=== PATIENT | male | born 1930 | race Caucasian/White ===

== ENCOUNTER → 2016-06-30 | Outpatient (CLI) | payer OTHER ==
--- NOTE | 2016-06-30 15:00 | US ---
Bilateral Duplex/Doppler Carotid Sonography Clinical Indications: Coronary artery disease. Hyperlipidemia. R09.89 COMPARISON: CT angiogram September 2015 Technique: The cervical portions of the carotid and vertebral arteries were imaged and interrogated by color and pulsed Duplex/Doppler. Spectral analysis was performed. Findings: Right Carotid: Right CCA peak systolic velocity = 72 cm/sec Right ICA peak systolic velocity = 222 cm/sec Right ECA peak systolic velocity = 110 cm/sec Right ICA/CCA systolic velocity ratio = 3.1 Velocities correlate to 70-89% diameter stenosis of the origin of the right internal carotid artery w ith respect to the normal distal internal carotid artery. Moderate calcified plaque involving the rig ht carotid bulb and proximal right internal carotid artery. Left Carotid: Left CCA peak systolic velocity = 80 cm/sec Left ICA peak systolic velocity = 89 cm/sec Left ECA peak systolic velocity = 109 cm/sec Left ICA/CCA systolic velocity ratio = 1.1 Velocities correlate to less than 50% diameter stenosis of the origin of the left internal carotid ar hermelinda with respect to the normal distal internal carotid artery. Mild calcified plaque involving the l eft carotid bulb and proximal left internal carotid artery. Vertebral Arteries: Antegrade flow is shown by pulsed Doppler of each vertebral artery. Impression: 1. Severe atherosclerotic stenosis right carotid bulb 2. Velocities correlate to 70-89% diameter stenosis of the origin of the right internal carotid arter y. 3. Velocities correlate to less than 50% diameter stenosis of the origin of the left internal carotid artery. 4. Bilateral vertebral arteries are patent with antegrade flow. Measurement of carotid stenosis is based on velocity parameters that correlate the residual internal carotid diameter with [place] Symptomatic Carotid Endarterectomy Trial (NASCET) based stenosis levels.
== END ==
LOC: FIMAGING 12:38
PROVIDERS: ATTEND Internal Medicine Cardiovascular Disease
DX: I65.23 Occlusion and stenosis of bilateral carotid arteries (principal); I25.10 Atherosclerotic heart disease of native coronary artery without angina pectoris; E78.5 Hyperlipidemia, unspecified

== ENCOUNTER 2016-07-08 21:39 | Emergency (ER) | payer OTHER ==
--- NOTE | 2016-07-08 22:14 | EDPHY ---
H & P Stated Complaint: Mechanical Fall Time Seen by Provider: 07/08/16 21:43 HPI/ROS: CHIEF COMPLAINT: Mechanical fall, head injury HISTORY OF PRESENT ILLNESS: The patient presents to the ED after an unwitnessed mechanical fall at home and a mild head injury. The patient is not anticoagulated. He does take Plavix. The patient reports he struck his head fairly hard. He is uncertain whether he lost consciousness. He denies specific complaints of neck pain. He has no complaints of focal numbness or weakness. The patient has not had any recent illness. The patient denies back , chest, abdominal or extremity pain. The patient does complain of a mild headache. REVIEW OF SYSTEMS: A comprehensive 10 point review of systems is otherwise negative aside from elements mentioned in the history of present illness. Source: Patient Exam Limitations: No limitations - Personal History Current Tetanus/Diphtheria Vaccine: Unsure - Medical/Surgical History Hx Asthma: No Hx Chronic Respiratory Disease: No Hx Diabetes: Yes Hx Cardiac Disease: Yes Hx Renal Disease: No Hx Cirrhosis: No Hx Alcoholism: No Hx HIV/AIDS: No Hx Splenectomy or Spleen Trauma: No Other PMH: ESPOPHAGEAL STRITURE, CARTOID STENOSIS - Social History Smoking Status: Never smoked - Physical Exam Exam: General Appearance: Alert, no distress Head: Superficial abrasion noted to forehead Eyes: Pupils equal, round, reactive ENT, Mouth: No hemotympanum, no oral trauma Neck: Minimal tenderness to palpation in the left paraspinal muscles Respiratory: No chest wall tender, subcutaneous air, lungs clear bilaterally Cardiovascular: Regular rate and rhythm Abdomen: Abdomen is soft and nontender, pelvis stable Skin: No lacerations, No abrasion Back: No midline T/L/S pain Extremities: Nontender, full range of motion Neurological: A&Ox3, normal motor function, normal sensory exam Constitutional: Initial Vital Signs Temperature (C) 36.5 C 07/08/16 21:53 Heart Rate 65 07/08/16 21:53 Respiratory Rate 20 07/08/16 21:53 Blood Pressure 181/121 H 07/08/16 21:53 O2 Sat (%) 95 07/08/16 21:53 O2 Delivery Mode Room Air Allergies/Adverse Reactions: Penicillins Allergy (Unknown, Verified 02/26/13 18:54) Home Medications: Medication Instructions Recorded Aspirin 10/26/15 Lisinopril 10/26/15 Metformin HCl 10/26/15 Metoprolol Succinate 10/26/15 Medical Decision Making - Diagnostics EKG Interpretation: EKG: Complete interpretation has been separately recorded in the [facility] archive. Summary impression: Sinus rhythm, first-degree AV block Imagin. CT head without contrast: Negative for intracranial hemorrhage or skull fracture. Images reviewed by myself and discussed with radiologist Dr. Prosper Hylton. 2. CT cervical spine without contrast: Negative for fracture, DJD is noted. Images reviewed by myself and discussed with radiologist Dr. Prosper Hylton ED Course/Re-evaluation: The patient presents to the ED after mechanical fall. The patient did have some mild neck tenderness and a contusion to his head. Given his complaints of headache in age, a noncontrast head CT scan was ordered which demonstrates no evidence of intracranial hemorrhage or skull fracture. Additionally, the patient's cervical spine x-ray demonstrates no evidence of an acute fracture. The remainder of his clinical examination demonstrates no evidence of an obvious bony fracture or significant intra-abdominal, spinal or thoracic trauma. The patient did have an EKG obtained in the emergency department which demonstrates a sinus rhythm. The patient was noted to be hemodynamically stable. The patient's laboratory studies are unremarkable. The patient was reexamined at 11:00 p.m.. He is now ambulatory without assistance. He has no complaints of acute pain. The patient can be discharged home with his neighbor. The patient has been given customary aftercare instructions and return precautions. Patient presents to the ED after a likely vasovagal episode complicated by a mild soft tissue injury. Differential Diagnosis: Differential diagnosis considered includes intracranial hemorrhage, cervical spine fracture, arrhythmia, metabolic abnormality, dehydration, vasovagal episode - Data Points Laboratory Results: Laboratory Results 07/08/16 22:30 07/08/16 21:45 07/08/16 07/08/16 22:30 21:45 WBC 8.51 10^3/uL REJ (3.80-9.50) RBC 3.75 L 10^6/uL Not Reported (4.40-6.38) Hgb 11.4 L g/dL Not Reported (13.7-17.5) Hct 34.3 L % Not Reported (40.0-51.0) MCV 91.5 fL Not Reported (81.5-99.8) MCH 30.4 pg Not Reported (27.9-34.1) MCHC 33.2 g/dL Not Reported (32.4-36.7) RDW 13.0 % Not Reported (11.5-15.2) Plt Count 198 10^3/uL Not Reported (150-400) MPV 10.3 fL Not Reported (8.7-11.7) Neut % (Auto) 77.6 H % Not Reported (39.3-74.2) Lymph % (Auto) 11.9 L % Not Reported (15.0-45.0) Dare % (Auto) 9.0 % Not Reported (4.5-13.0) Eos % (Auto) 0.9 % Not Reported (0.6-7.6) Baso % (Auto) 0.2 L % Not Reported (0.3-1.7) Nucleat RBC Rel Count 0.0 % Not Reported (0.0-0.2) Absolute Neuts (auto) 6.60 H 10^3/uL Not Reported (1.70-6.50) Absolute Lymphs (auto) 1.01 10^3/uL Not Reported (1.00-3.00) Absolute Monos (auto) 0.77 10^3/uL Not Reported (0.30-0.80) Absolute Eos (auto) 0.08 10^3/uL Not Reported (0.03-0.40) Absolute Basos (auto) 0.02 10^3/uL Not Reported (0.02-0.10) Absolute Nucleated RBC 0.00 10^3/uL Not Reported (0-0.01) Immature Gran % 0.4 % Not Reported (0.0-1.1) Immature Gran # 0.03 10^3/uL Not Reported (0.00-0.10) Sodium 138 mEq/L (134-144) Potassium 5.2 mEq/L (3.5-5.2) Chloride 101 mEq/L (97-110) Carbon Dioxide 25 mEq/l (22-31) Anion Gap 12 mEq/L (8-16) BUN 21 mg/dL (7-23) Creatinine 0.9 mg/dL (0.7-1.3) Estimated GFR > 60 Glucose 206 H mg/dL (70-100) Calcium 8.8 mg/dL (8.5-10.4) Specimen Hemolysis 197 Departure - Departure Disposition: Home, Routine, Self-Care Clinical Impression: Scalp contusion, Accident due to mechanical fall without injury Condition: Good Instructions: Contusion in Adults (ED) Additional Instructions: 1. Return to the ED for severe headache, vomiting or other concerns. 2. Please follow up with your primary care provider as scheduled. Referrals: Pepper Thibodeaux MD [Primary Care Provider] - As per Instructions
--- NOTE | 2016-07-08 22:14 | CPEKG ---
Heart Rate: 68 RR Interval: 882 P-R Interval: 220 QRSD Interval: 106 QT Interval: 420 QTC Interval: 447 P [place]: 29 QRS [place]: 51 T Wave [place]: 22 EKG Severity - ABNORMAL ECG - EKG Impression: SINUS RHYTHM EKG Impression: FIRST DEGREE AV BLOCK Electronically Signed By: Bj Siegel 08-Jul-2016 23:04:47
[2016-07-08 22:28] LABS: ANION GAP 12 mEq/L (8-16); CALCIUM 8.8 mg/dL (8.5-10.4); CARBON DIOXIDE 25 mEq/l (22-31); CHLORIDE 101 mEq/L (97-110); CREATININE 0.9 mg/dL (0.7-1.3); GLOMERULAR FILTRATION RATE > 60; GLUCOSE 206 mg/dL (70-100); POTASSIUM 5.2 mEq/L (3.5-5.2); SODIUM 138 mEq/L (134-144); SPECIMEN HEMOLYSIS 197
--- NOTE | 2016-07-08 22:35 | CT ---
CT Brain (Without Contrast) History: Closed head injury in an 86-year-old male on blood thinners; evaluate for intracranial hemo rrhage.. Technique: Axial computed tomographic images of the brain are obtained from the base to the vertex w ithout contrast. Images are obtained at 5 mm thickness and reformatted at 1.5 mm. Sagittal and price l reformations are performed and the study is reviewed at multiple window/level settings. Dose reduct ion techniques were utilized. Findings: Ventricles, cisterns, and sulci are widened consistent with atrophy. There is no hydroceph alus, midline shift/herniation, or epidural/subdural hematoma. No intraparenchymal hemorrhage or mass effect is identified. Hypodensities are noted in the periventricular and subcortical white matter bi laterally. No acute cortical ischemia is identified. Cerebrovascular atherosclerosis is identified. B one windows demonstrate no displaced fractures. Paranasal sinuses and mastoid air cells are free of f luid. Mucous membrane thickening is seen involving the left maxillary and nasal ethmoid sinuses. 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 Nothing acute is identified. CT Cervical Spine Without Contrast History: Trauma. Technique: Multislice helical CT through the cervical spine without contrast from the skull base to T 1. Soft tissue and bone evaluation is performed. Sagittal and coronal reconstructions are obtained an d reviewed. Dose reduction techniques were utilized. Findings: Cervical alignment is anatomic. No fracture or dislocation is identified. The relationship between skull base and C1 is normal. Degenerative changes are seen involving the C1-C2 articulation.. The odontoid process is normal. The cervical thoracic junction is normal. Soft tissue window evaluat ion does not show evidence of epidural or prevertebral hematoma. Multilevel degenerative changes are seen with disk space loss and bony hypertrophic changes extending from C3-C4 to the C6-C7 level. Bilateral neural foraminal impingement is most pronounced at the C3-C 4 level. Carotid arterial calcifications are noted. Impression: 1. Negative for fracture. 2. Multilevel degenerative changes are noted. 3. See above report for additional findings. A preliminary report was called to Dr. Bj Gottlieb at 2230 hours in the Emergency Department.
[2016-07-08 22:40] LABS: % IMMATURE GRANULYOCYTES 0.4 % (0.0-1.1); ABSOLUTE IMMATURE GRANULOCYTES 0.03 10^3/uL (0.00-0.10); ADD DIFF? NO; ADD MORPH? NO; ADD SCAN? NO; ATYPICAL LYMPHOCYTE FLAG 0 (0-99); FRAGMENT RBC FLAG 0 (0-99); HEMATOCRIT 34.3 % (40.0-51.0); HEMOGLOBIN 11.4 g/dL (13.7-17.5); LEFT SHIFT FLG 10 (0-99); LIPEMIA HEMOLYSIS FLAG 80 (0-99); MEAN CELL HEMOGLOBIN 30.4 pg (27.9-34.1); MEAN CELL HEMOGLOBIN CONCENTR. 33.2 g/dL (32.4-36.7); MEAN CELL VOLUME 91.5 fL (81.5-99.8); MEAN PLATELET VOLUME 10.3 fL (8.7-11.7); PLATELET CLUMPS FLAG 10 (0-99); PLATELET COUNT 198 10^3/uL (150-400); RED BLOOD CELL COUNT 3.75 10^6/uL (4.40-6.38)
[2016-07-08 23:16] VITALS: BP 181/82; PULSE 89; RESP 20; TEMP 98.1; O2SAT 97
== END 2016-07-08 23:25 | disposition home or self-care (01) ==
LOC: EDUNIT#
DX: S00.03XA Contusion of scalp, initial encounter (principal); E11.9 Type 2 diabetes mellitus without complications; Z79.82 Long term (current) use of aspirin; W18.39XA Other fall on same level, initial encounter; Y92.009 Unspecified place in unspecified non-institutional (private) residence as the place of occurrence of the external cause; Y93.89 Activity, other specified

== ENCOUNTER 2017-03-01 11:25 | Observation (INO) | payer OTHER ==
[2017-03-01] MEDS ORDERED: NS 1,000 ML IV ONE (11:52)
--- NOTE | 2017-03-01 11:58 | EDPHY ---
H & P Stated Complaint: generalized weakness past few days, fall this a.m. Time Seen by Provider: 03/01/17 11:44 HPI/ROS: CHIEF COMPLAINT: Frequent falls HISTORY OF PRESENT ILLNESS: Patient is an 86-year-old man who comes to the emergency department this family complaining of frequent falls and states that his legs are not functioning. He is family states that over the last several weeks to months he has had weakness and some "trouble" with his right arm and leg. He denies having any injuries. He denies headache. He denies chest pain or palpitations or shortness of breath. He has a history of carotid artery stenosis that is been observed only. He states that he has a stent in his heart was placed [address] Ramí[address]. REVIEW OF SYSTEMS: Constitutional: denies: chills, fever, recent illness, recent injury EENTM: denies: blurred vision, double vision, nose congestion Respiratory: denies: cough, shortness of breath Cardiac: denies: chest pain, irregular heart rate, lightheadedness, palpitations Gastrointestinal/Abdominal: denies: abdominal pain, diarrhea, nausea, vomiting, blood streaked stools Genitourinary: denies: dysuria, frequency, hematuria, pain Musculoskeletal: See HPI Skin: denies: lesions, rash, jaundice, bruising Neurological: denies: headache, numbness, paresthesia, tingling, dizziness, weakness Hematologic/Lymphatic: denies: blood clots, easy bleeding, easy bruising Immunologic/allergic: denies: HIV/AIDS, transplant EXAM: GENERAL: Well-appearing, well-nourished and in no acute distress. HEAD: Atraumatic, normocephalic. EYES: Pupils equal round and reactive to light, extraocular movements intact, sclera anicteric, conjunctiva are normal. ENT: TMs normal, nares patent, oropharynx clear without exudates. Moist mucous membranes. NECK: Normal range of motion, supple without lymphadenopathy or JVD. LUNGS: Breath sounds clear to auscultation bilaterally and equal. No wheezes rales or rhonchi. HEART: Regular rate and rhythm without murmurs, rubs or gallops. ABDOMEN: Soft, nontender, normoactive bowel sounds. No guarding, no rebound. No masses appreciated. BACK: No CVA tenderness, no spinal tenderness, step-offs or deformities EXTREMITIES: Normal range of motion, no pitting or edema. No clubbing or cyanosis. NEUROLOGICAL: Slight right-sided facial droop, pronator drift on the right, slight weakness in right leg with elevation. Normal speech, normal sensation NIH stroke score of 3 for pronator drift, slight right facial weakness and slight hemianopsia of the right side PSYCH: Normal mood, normal affect. SKIN: Warm, dry, normal turgor, no visible rashes or lesions. Source: Patient, Family Exam Limitations: No limitations - Personal History Current Tetanus/Diphtheria Vaccine: Yes Current Tetanus Diphtheria and Acellular Pertussis (TDAP): Yes - Medical/Surgical History Hx Asthma: No Hx Chronic Respiratory Disease: No Hx Diabetes: Yes Hx Cardiac Disease: Yes Hx Renal Disease: No Hx Cirrhosis: No Hx Alcoholism: No Hx HIV/AIDS: No Hx Splenectomy or Spleen Trauma: No Other PMH: ESPOPHAGEAL STRITURE, CARTOID STENOSIS, DM - Family History Significant Family History: No pertinent family hx - Social History Smoking Status: Never smoked Alcohol Use: Sober Drug Use: None Constitutional: Initial Vital Signs Temperature (C) 36.8 C 03/01/17 11:48 Heart Rate 90 03/01/17 11:48 Respiratory Rate 16 03/01/17 11:48 Blood Pressure 155/74 H 03/01/17 11:48 O2 Sat (%) 91 L 03/01/17 11:48 O2 Delivery Mode Room Air Allergies/Adverse Reactions: Penicillins Allergy (Unknown, Verified 02/26/13 18:54) Home Medications: Medication Instructions Recorded Aspirin EC [Aspirin EC 81 mg (*)] 81 mg PO DAILY 10/26/15 Metoprolol Succinate Xr [Toprol Xl 25 mg PO DAILY 10/26/15 25 mg (*)] metFORMIN HCL [Metformin HCl ER] 500 mg PO DAILY 10/26/15 Atorvastatin Calcium [Lipitor 40 40 mg PO DAILY 03/01/17 mg (*)] metFORMIN HCL [Metformin HCl ER] 1,000 mg PO HS 03/01/17 Acetaminophen [Tylenol 325mg (*)] 650 mg PO Q4HRS PRN tab 03/02/17 Medical Decision Making - Diagnostics EKG Interpretation: An EKG obtained and was read and documented in trace view. Please see trace view for full reading and report. Sinus rhythm with PVCs, no acute ischemic changes ED Course/Re-evaluation: 1:45 p.m. I discussed the case with Dr. Ulysses Coyne who will admit to the medical service. Her CT and lab findings thus far unremarkable. Patient has carotid artery stenosis. This may be the primary problem Differential Diagnosis: Partial list of the Differential diagnosis considered include but were not limited to; CVA, are stenosis and although unlikely based on the history and physical exam, I also considered infection, seizure, concussion. - Data Points Medications Given: Discontinued Medications Aspirin (Aspirin) 325 mg PO DAILY [place] Stop: 08/28/17 15:14 Last Admin: 03/02/17 08:27 Dose: 325 mg Atorvastatin Calcium (Lipitor) 40 mg PO DAILY [place] Stop: 08/29/17 08:59 Last Admin: 03/02/17 08:27 Dose: 40 mg Sodium Chloride (Ns) 1,000 mls @ 0 mls/hr IV ONCE ONE; Wide Open PRN Reason: Protocol Stop: 03/01/17 11:53 Last Admin: 03/01/17 11:55 Dose: 1,000 mls Metformin HCl (Glucophage Xr) 1,000 mg PO HS [place]AV[place] Stop: 08/28/17 20:59 Last Admin: 03/01/17 20:18 Dose: 1,000 mg Metformin HCl (Glucophage Xr) 500 mg PO DAILY OCTAV[place] Stop: 08/29/17 08:59 Last Admin: 03/02/17 08:26 Dose: 500 mg Metoprolol Succinate (Toprol Xl) 25 mg PO DAILY OCTAV[place] Stop: 08/29/17 08:59 Last Admin: 03/02/17 08:27 Dose: 25 mg Pantoprazole Sodium (Protonix) 40 mg PO DAILY [place]AV[place] Stop: 08/28/17 19:29 Last Admin: 03/02/17 08:27 Dose: 40 mg Departure - Departure Disposition: [facility] Inpatient Acute Clinical Impression: CVA, old, facial weakness Condition: Good
[2017-03-01 12:11] LABS: % IMMATURE GRANULYOCYTES 0.2 % (0.0-1.1); ABSOLUTE IMMATURE GRANULOCYTES 0.02 10^3/uL (0.00-0.10); ADD DIFF? NO; ADD MORPH? NO; ADD SCAN? NO; ATYPICAL LYMPHOCYTE FLAG 0 (0-99); FRAGMENT RBC FLAG 0 (0-99); HEMATOCRIT 33.2 % (40.0-51.0); LEFT SHIFT FLG 0 (0-99); LIPEMIA HEMOLYSIS FLAG 80 (0-99); MEAN CELL HEMOGLOBIN 30.9 pg (27.9-34.1); MEAN CELL HEMOGLOBIN CONCENTR. 33.1 g/dL (32.4-36.7); MEAN CELL VOLUME 93.3 fL (81.5-99.8); MEAN PLATELET VOLUME 11.1 fL (8.7-11.7); PLATELET CLUMPS FLAG 0 (0-99); PLATELET COUNT 182 10^3/uL (150-400); RED BLOOD CELL COUNT 3.56 10^6/uL (4.40-6.38); RED CELL DISTRIBUTION WIDTH 13.1 % (11.5-15.2)
[2017-03-01 12:26] LABS: ANION GAP 11 mEq/L (8-16); CALCIUM 9.4 mg/dL (8.5-10.4); CARBON DIOXIDE 24 mEq/l (22-31); CHLORIDE 99 mEq/L (97-110); CREATININE 0.9 mg/dL (0.7-1.3); GLOMERULAR FILTRATION RATE > 60; GLUCOSE 220 mg/dL (70-100); POTASSIUM 3.9 mEq/L (3.5-5.2); SODIUM 134 mEq/L (134-144)
[2017-03-01 12:37] LABS: TROPONIN I < 0.012 ng/mL (0.000-0.034)
--- NOTE | 2017-03-01 12:52 | CPEKG ---
Heart Rate: 67 RR Interval: 896 P-R Interval: 240 QRSD Interval: 98 QT Interval: 432 QTC Interval: 456 P [place]: 54 QRS [place]: 64 T Wave [place]: 44 EKG Severity - ABNORMAL ECG - EKG Impression: SINUS RHYTHM EKG Impression: FIRST DEGREE AV BLOCK EKG Impression: PVCs Electronically Signed By: Nick Armenta 01-Mar-2017 12:53:00
[2017-03-01] MEDS ORDERED: ONDANSETRON DISINTEGRATING 4 MG TAB PO PRN (15:04)
[2017-03-01] MEDS ORDERED: ACETAMINOPHEN 325 MG TAB PO PRN (15:04)
[2017-03-01] MEDS ORDERED: ONDANSETRON 4 MG/2 ML VIAL IVP PRN (15:04)
--- NOTE | 2017-03-01 15:42 | ASMTCMCOM ---
CM Note CM Note Notes: Patient admitted for possible CVA, carotid stenosis, weakness. Patient was noted to have slight right sided facial droop and right leg weakness. Patient had a fall earlier today and states he has been having increased falls over the past several weeks to months. Patient lives at home with his and states they have both skilled and non-skilled home help but didn't seem to want to elaborate. Patient states he doesn't use a walker or cane. Anticipate PT/OT and possibly [facility] evaluations. DC needs unknown. CM to follow. Date Signed: 03/01/2017 03:41 PM Electronically Signed By:Omaira Johnson RN
[2017-03-01] MEDS: ASPIRIN 325 MG TAB PO SCH (18:05)
[2017-03-01] MEDS ORDERED: IOPAMIDOL (ISOVUE 370) 100 ML BTL IV ONE (18:52)
--- NOTE | 2017-03-01 19:16 | PDGENHP ---
History and Physical - Chief Complaint acute weakness - History of Present Illness Primary manager solar: Dr. Carlos Batres Primary general surgeon: Dr. Jace Hayden Primary supervisor sewer maintenance: Dr. Dhaval Wright HPI: 86-year-old male presenting with acute weakness characterized as a diffuse heaviness located in his bilateral lower extremities with associated falls of increasing frequency, with onset of symptoms several weeks prior, and duration persistent thereafter. Patient also notes that he has some associated subjective weakness in his right upper extremity and right lower extremity. he otherwise denies any paresthesias, denies any headaches, denies any infectious symptoms. He does report that he has been experiencing some exertional shortness of breath recently as well as exertional fatigue and hiccups, exacerbated by lying supine. He is unable to say whether his shortness of breath is exacerbated by lying supine, as he sleeps at an angle. He has otherwise been taking all of his home medications recently without any changes. History Information - Allergies/Home Medication List Allergies/Adverse Reactions: Penicillins Allergy (Unknown, Verified 02/26/13 18:54) Home Medications: Aspirin EC [Aspirin EC 81 mg (*)] 81 mg PO DAILY 10/26/15 [Last Taken 02/28/17] Metoprolol Succinate Xr [Toprol Xl 25 mg (*)] 25 mg PO DAILY 10/26/15 [Last Taken 02/28/17] metFORMIN HCL [Metformin HCl ER] 500 mg PO DAILY 10/26/15 [Last Taken 03/01/17] Atorvastatin Calcium [Lipitor 40 mg (*)] 40 mg PO DAILY 03/01/17 [Last Taken ] Herbals/Supplements -Info Only 1 ea PO DAILY 03/01/17 [Last Taken Unknown] metFORMIN HCL [Metformin HCl ER] 1,000 mg PO HS 03/01/17 [Last Taken 02/28/17] I have personally reviewed and updated: family history, medical history, social history, surgical history - Past Medical History Additional medical history: Carotid stenosis, severe, noted as 70-90% at the right carotid bulb in June of 2016, patient elected for nonoperative management with Dr. Jace Hayden at that time. Esophageal stricture. Diabetes mellitus type 2 with most recent hemoglobin A1c 8.3%. Coronary artery disease status post stenting 15 years ago - Surgical History Additional surgical history: esophageal balloon in 2013. Cardiac stent 15 years ago - Family History Additional family history: family history of esophageal cancer achalasia - Social History Smoking Status: Never smoked Alcohol Use: Sober Drug Use: None Additional social history: independent in his ADLs Review of Systems Review of Systems: ROS: 10pt was reviewed & negative except for what was stated in HPI & below Constitutional: Reports: weakness Respiratory: Reports: shortness of breath Neurological: Reports: other ( right gil paresis) Physical Exam Physical Exam: Temp Pulse Resp BP Pulse Ox 36.8 C 56 L 18 164/76 H 91 L 03/01/17 16:19 03/01/17 16:19 03/01/17 16:19 03/01/17 16:19 03/01/17 16:19 Constitutional: no apparent distress, appears nourished, not in pain, other ( Aged appearing) Eyes: PERRL, anicteric sclera, EOMI Ears, Nose, Mouth, Throat: moist mucous membranes, hearing normal, ears appear normal, no oral mucosal ulcers Cardiovascular: systolic murmur ( 1/6 at the sternum), No irregularly irregular , No carotid bruit, No tachycardia, No edema Respiratory: no respiratory distress, no rales or rhonchi, clear to auscultation Gastrointestinal: normoactive bowel sounds, soft, non-tender abdomen, no palpable masses, No distension Skin: other ( hyperkeratosis on his scalp without any vesicular lesions) Neurologic: AAOx3, weakness ( subjective weakness in his right upper and right lower extremity comma motor strength is 5/5 on testing), CN II-XII Intact, other ( right patellar reflex is brisk greater than left), No sensation intact bilaterally ( paresthesia over his right lower extremity), No facial droop Psychiatric: interacting appropriately, not anxious, not encephalopathic, thought process linear Lab Data & Imaging Review 03/01/17 Unknown 03/01/17 Unknown WBC 8.17 10^3/uL (3.80-9.50) 03/01/17 Unknown RBC 3.56 10^6/uL (4.40-6.38) L 03/01/17 Unknown Hgb 11.0 g/dL (13.7-17.5) L 03/01/17 Unknown Hct 33.2 % (40.0-51.0) L 03/01/17 Unknown MCV 93.3 fL (81.5-99.8) 03/01/17 Unknown MCH 30.9 pg (27.9-34.1) 03/01/17 Unknown MCHC 33.1 g/dL (32.4-36.7) 03/01/17 Unknown RDW 13.1 % (11.5-15.2) 03/01/17 Unknown Plt Count 182 10^3/uL (150-400) 03/01/17 Unknown MPV 11.1 fL (8.7-11.7) 03/01/17 Unknown Neut % (Auto) 75.6 % (39.3-74.2) H 03/01/17 Unknown Lymph % (Auto) 12.6 % (15.0-45.0) L 03/01/17 Unknown [place] % (Auto) 8.1 % (4.5-13.0) 03/01/17 Unknown Eos % (Auto) 3.1 % (0.6-7.6) 03/01/17 Unknown Baso % (Auto) 0.4 % (0.3-1.7) 03/01/17 Unknown Nucleat RBC Rel Count 0.0 % (0.0-0.2) 03/01/17 Unknown Absolute Neuts (auto) 6.18 10^3/uL (1.70-6.50) 03/01/17 Unknown Absolute Lymphs (auto) 1.03 10^3/uL (1.00-3.00) 03/01/17 Unknown Absolute Monos (auto) 0.66 10^3/uL (0.30-0.80) 03/01/17 Unknown Absolute Eos (auto) 0.25 10^3/uL (0.03-0.40) 03/01/17 Unknown Absolute Basos (auto) 0.03 10^3/uL (0.02-0.10) 03/01/17 Unknown Absolute Nucleated RBC 0.00 10^3/uL (0-0.01) 03/01/17 Unknown Immature Gran % 0.2 % (0.0-1.1) 03/01/17 Unknown Immature Gran # 0.02 10^3/uL (0.00-0.10) 03/01/17 Unknown Sodium 134 mEq/L (134-144) 03/01/17 Unknown Potassium 3.9 mEq/L (3.5-5.2) 03/01/17 Unknown Chloride 99 mEq/L (97-110) 03/01/17 Unknown Carbon Dioxide 24 mEq/l (22-31) 03/01/17 Unknown Anion Gap 11 mEq/L (8-16) 03/01/17 Unknown BUN 18 mg/dL (7-23) 03/01/17 Unknown Creatinine 0.9 mg/dL (0.7-1.3) 03/01/17 Unknown Estimated GFR > 60 03/01/17 Unknown Glucose 220 mg/dL (70-100) H 03/01/17 Unknown Calcium 9.4 mg/dL (8.5-10.4) 03/01/17 Unknown Troponin I < 0.012 ng/mL (0.000-0.034) 03/01/17 Unknown Visualized and Interpreted EKG results: Yes EKG Interpretation: Positive for: other ( normal sinus rhythm with PVCs, first- degree AV block) Assessment & Plan Assessment: 86-year-old male presenting with acute falls and paresis concerning for CVA in the setting of severe carotid stenosis Plan: 1. suspected CVA. Acute, new problem this provider, further workup indicated. I suspect that the patient has experienced a CVA in the setting of severe right-sided carotid stenosis although his symptoms are on the ipsilateral side is unclear whether he has embolized some of his plaque either contralaterally or into the brainstem -get CT angio of neck and head -get MRI without contrast -get echocardiogram with bubble -get neuro consult in a.m. - LDL 51 and A1 8.3% on 01/03/17 -upgraded from aspirin 81 mg to 325, may pursue systemic anticoagulation after surgery and neuro eval 2. Carotid stenosis. Severe, outside records reviewed including 06/30/2016 ultrasound demonstrating right bulb 70-90% stenosis, left 50% -I have contacted Dr. Jace aHyden, he will consult in the patient's care -I have discussed these findings with the patient and have a may correlate to possible CVA, the patient would be interested to discuss potential surgical intervention at this time 3. coronary artery disease. Chronic, exertional symptoms raise possibility of stable angina, I have consulted with Dr. Carlos Batres, echocardiogram has been ordered, the patient would require preoperative cardiac risk stratification if he is to consider pursuing CEA Diet. Cardiac Prophylaxis. High risk patient, holding pharm given possible CVA, SCDs Code. Do not resuscitate per patient his is MPOA Disposition. Anticipated discharge 03/02/2017, pending further workup and surgical recommendations. Patient to pursue surgery for the aforementioned issue, then he should be upgraded to inpatient admission status at that time. I have discussed patient's presentation with Dr. Teddy Coyne, he has signed out the patient to me for evaluation.
[2017-03-01] MEDS ORDERED: CALCIUM CARBONATE 500 MG CHEWABLE TAB PO PRN (19:23)
--- NOTE | 2017-03-01 20:12 | GCON ---
[f rep st] CONSULTATION DATE OF CONSULTATION: 03/01/2017 REFERRING PHYSICIAN: Ehsan Wilhelm MD REASON FOR EVALUATION: Possible CVA/right carotid stenosis. HISTORY OF PRESENT ILLNESS: 86-year-old right-handed male, known to me from a prior office visit back in December 2015 for asymptomatic right carotid stenosis. The patient also has a significant history of coronary artery disease, status post PTCA, as well as diabetes. He presented to the emergency room earlier today with a multiple-week history of progressive bilateral lower extremity weakness and difficulty walking. He has 3 flights of stairs in his house, which he used to ambulate easily approximately a year ago. He currently is able to do approximately 3 stairs before he develops shortness of breath. He states that last evening he had extreme difficulty getting into bed because of progressive leg weakness. He denies that he has had issues with upper extremity numbness, tingling, or weakness. He denies headaches or visual changes. He denies difficulty speaking or swallowing or difficulty with word finding. He denies current complaints of chest pain. He denies lower extremity numbness or tingling. His biggest complaint is that his power feels that it is currently absent. He notes mild chronic lower back pain without recent exacerbation. He denies to me right upper extremity weakness. A prior neck ultrasound, October 02, 2015, with 65% to 75% stenosis with high peak systolic velocity suggesting approximately 85% stenosis. CT of the neck, September of 2015, with 75% to 85% right-sided internal carotid artery stenosis with patent vertebral arteries and an insignificantly stenotic left internal carotid artery. PAST MEDICAL HISTORY: Diabetes, hypertension, coronary artery disease, GERD. PAST SURGICAL HISTORY: Stomach surgery 2012. MEDICATIONS: Metformin, lisinopril, Lipitor, lansoprazole. ALLERGIES: Penicillin, rash. SOCIAL: Nonsmoker. No alcohol. He is . 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 FAMILY HISTORY: Non-contributory. ROS: Notable for above neurologic complaints and SOB only. Remaining systems unremarkable. PHYSICAL EXAMINATION: VITAL SIGNS: Temperature 36.8, blood pressure 160/70, pulse is 56, respirations 18. GENERAL: The patient is alert, appropriate, comfortable. HEENT: Pupils are equally round and react to light and accommodation. Extraocular muscles are intact. NECK: 2+ carotid pulses without audible bruit. HEART: Regular without murmurs. LUNGS: Clear bilaterally. ABDOMEN: Soft, nontender, nondistended. No pulsatile masses. No bruits. PELVIS: Nontender. BACK: Lumbar spine with minimal nonfocal tenderness. NEUROLOGIC: Normal bilateral upper extremity strength and sensation. Notable bilateral thigh weakness, extension greater than flexion. Continued slow get up and go. 2+ radial, brachial, carotid, femoral, popliteal , dorsalis pedis and posterior tibial pulses bilaterally without embolic phenomena. Head CT: Nonfocal. Hemoglobin 11, white count 8, platelets of 182. Electrolytes within reference range. Glucose 220. Troponin negative. IMPRESSION: 86-year-old male with known right carotid artery stenosis, admitted with progressive lower extremity weakness and shortness of breath. His exam is significant for notable bilateral leg weakness without lateralizing neurologic findings. The patient has been ordered for MRI of the head as well as CTA imaging of his neck by his primary care providers. Will follow up on these imaging results after these studies are completed. I suspect his symptoms may be more consistent with progressive functional decline rather than a transient ischemic attack or cerebrovascular accident. Final recommendations to follow. /[id number]/MODL MTDD
[2017-03-01] MEDS: PANTOPRAZOLE SODIUM 40 MG TAB PO SCH (20:17)
[2017-03-01] MEDS ORDERED: NON-FORMULARY NEW DRUG (Metformin Hcl [Metformin Hcl Er] 1,000 MG) PO SCH (21:00)
[2017-03-01] MEDS ORDERED: metFORMIN SR 500 MG TAB PO SCH (21:00)
[2017-03-02 08:25] VITALS: TEMP 98.6
[2017-03-02] MEDS: ASPIRIN 325 MG TAB PO SCH (08:27)
[2017-03-02] MEDS: PANTOPRAZOLE SODIUM 40 MG TAB PO SCH (08:27)
--- NOTE | 2017-03-02 08:33 | SOAPPROG ---
SOAP Progress Note Assessment/Plan: 86-year-old male presenting with acute falls and paresis concerning for CVA in the setting of severe carotid stenosis Plan: 1.weakness- dc home with home pt/ot/SW 2. Carotid stenosis. Severe, outside records reviewed including 06/30/2016 ultrasound demonstrating right bulb 70-90% stenosis, left 50% -I spoke with Morgan Hayden and Almita, can discuss with both providers as outpt but no intervention needed during this hospitalization 3. coronary artery disease. - FU with Dr. Carlos Batres as outpt, echocardiogram now Code. Do not resuscitate per patient his is MPOA Disposition. discharge 03/02/2017 Subjective: He feels well, 'nl' for him and wants to go home. I spoke with Dr Thibodeaux, his PCP and gave an update on hospital care. I also spoke with Morgan Hayden and Almita. All in agreement to discharge to home with home care eval and close FU/further eval per Dr Thibodeaux. Objective: Vital Signs Temp Pulse Resp BP Pulse Ox 98.6 F 70 16 180/94 H 93 03/02/17 08:24 03/02/17 08:24 03/02/17 08:24 03/02/17 08:24 03/02/17 08:24 Laboratory Results 03/01/17 Unknown 03/01/17 Unknown 02/28/17 03/01/17 03/02/17 11:59 11:59 11:59 Intake Total 1450 Output Total 650 Balance 800 Physical Exam - Physical Exam General Appearance: WD/WN, alert, no apparent distress Respiratory: chest non-tender, lungs clear, normal breath sounds Cardiac/Chest: regular rate, rhythm, No edema Neuro/Psych: alert, normal mood/affect, No cognition abnormalities, No speech abnormalities ICD10 Worksheet Patient Problems: Problems Problem Status Onset CVA, old, facial weakness Acute
[2017-03-02] MEDS ORDERED: Herbals/Supplements -Info Only PO SCH (09:00)
[2017-03-02] MEDS ORDERED: NON-FORMULARY NEW DRUG (Metformin Hcl [Metformin Hcl Er] 500 MG) PO SCH (09:00)
[2017-03-02] MEDS ORDERED: metFORMIN SR 500 MG TAB PO SCH (09:00)
[2017-03-02] MEDS ORDERED: ATORVASTATIN CALCIUM 40 MG TAB PO SCH (09:00)
[2017-03-02] MEDS ORDERED: METOPROLOL SUCCINATE XR 25 MG TAB PO SCH (09:00)
[2017-03-02 11:20] LABS: % IMMATURE GRANULYOCYTES 0.3 % (0.0-1.1); ABSOLUTE IMMATURE GRANULOCYTES 0.02 10^3/uL (0.00-0.10); ADD DIFF? NO; ADD MORPH? NO; ADD SCAN? NO; ATYPICAL LYMPHOCYTE FLAG 0 (0-99); FRAGMENT RBC FLAG 0 (0-99); HEMATOCRIT 33.8 % (40.0-51.0); HEMOGLOBIN 11.5 g/dL (13.7-17.5); LEFT SHIFT FLG 0 (0-99); LIPEMIA HEMOLYSIS FLAG 90 (0-99); MEAN CELL HEMOGLOBIN 31.3 pg (27.9-34.1); MEAN CELL VOLUME 91.8 fL (81.5-99.8); MEAN PLATELET VOLUME 11.1 fL (8.7-11.7); PLATELET CLUMPS FLAG 10 (0-99); PLATELET COUNT 160 10^3/uL (150-400); RED BLOOD CELL COUNT 3.68 10^6/uL (4.40-6.38); RED CELL DISTRIBUTION WIDTH 13.2 % (11.5-15.2)
--- NOTE | 2017-03-02 11:25 | PDIAF ---
- Diagnosis Code Status: Do Not Resuscitate - Medication Management Discharge Medications: Medications to Continue on Transfer Aspirin EC [Aspirin EC 81 mg (*)] 81 mg PO DAILY 10/26/15 [Last Taken 02/28/17] Metoprolol Succinate Xr [Toprol Xl 25 mg (*)] 25 mg PO DAILY 10/26/15 [Last Taken 02/28/17] metFORMIN HCL [Metformin HCl ER] 500 mg PO DAILY 10/26/15 [Last Taken 03/01/17] Atorvastatin Calcium [Lipitor 40 mg (*)] 40 mg PO DAILY 03/01/17 [Last Taken ] metFORMIN HCL [Metformin HCl ER] 1,000 mg PO HS 03/01/17 [Last Taken 02/28/17] Acetaminophen [Tylenol 325mg (*)] 650 mg PO Q4HRS PRN tab 03/02/17 [Last Taken Unknown] Scrap Preparer Antibiotics: n/a Discharge Medications: Refer to the Discharge Home Medication list for PRN reason. PICC Care - Routine: N/A - Orders Services needed: Home Care, Registered Nurse, Master Floor Cashier, Physical Therapy, Occupational Therapy Home Care Face to Face: I certify that this patient was under my care and that I had the required [id number] encounter meeting the encounter requirements on the discharge day. My findings support the fact that the patient is homebound as defined in Home Care Face to Face Continued: CMS Chapter 7 Medicare Benefits Manual 30.1.1 , The condition of the patient is such that there exists a normal inability to leave home and consequently, leaving home would require a considerable and taxing effort. Diet Recommendation: no restrictions on diet Diet Texture: Regular Texture Diet Activity/Weight Bearing Restrictions: pt/ot per recommendations Additional: high level of stress bc of 's conditions, he also has chronic neuro condition, please eval safety of home and for services needed - Follow Up Care Current Providers and Referrals: Pepper Thibodeaux MD [Primary Care Provider] - 1-2 days
[2017-03-02 11:27] VITALS: BP 130/68; PULSE 75; RESP 14
[2017-03-02 11:43] LABS: ANION GAP 11 mEq/L (8-16); CALCIUM 9.3 mg/dL (8.5-10.4); CARBON DIOXIDE 22 mEq/l (22-31); CHLORIDE 103 mEq/L (97-110); CREATININE 0.9 mg/dL (0.7-1.3); GLOMERULAR FILTRATION RATE > 60; GLUCOSE 191 mg/dL (70-100); POTASSIUM 3.8 mEq/L (3.5-5.2); SODIUM 136 mEq/L (134-144)
--- NOTE | 2017-03-02 11:52 | NEUROPROG ---
Assessment: HOSPITAL NEUROLOGY CONSULT REQUESTING: Ehsan Wilhelm MD REASON: possible stroke HPI: 86 year old right-handed man with a history of asymptomatic ELENA stenosis, HTN, DM2, CAD who presented to our facility due to a sense of leg weakness. He states the days leading up to admission he was having trouble getting into bed. He felt his bilateral lower legs would not work correctly for him. He denied any lateralizing weakness. He has longstanding diabetic peripheral neuropathy that he reports has ascended to below the knee. He has difficulty walking, but only uses a can around the house. Apparently family had been noticing intermittent problems with the patient using his right arm and leg - no family at bedside and this is by report from the ED note. Today, he still feels "weak" in the legs. He is pointing to the ankles stating that is where he is weak. He states the trouble getting into his bed is that he seemingly can't control the legs. He demonstrates for me at bedside when standing, and he is displaying trouble turning around to sit on the bed. As confirmed on exam, this is due to a sensory ataxia of the lower extremities. He denies low back pain, incontinence, abnormal muscle movements. ROS: As per the HPI, otherwise a complete 12 point ROS was performed and is negative ALLERGIES AND MEDS: As recorded in the EMR - reviewed and reconciled PFSH: As per the intake H&P by Dr. Wilhelm from yesterday EXAM: VS reviewed in EMR GEN: WDWN laying in NAD HEENT: NCAT, sclera anicteric, conjunctiva not injected, MMM, oropharynx clear, no scalp tenderness NECK: supple, nontender, no meningismus CV: RRR s1 s2 wo m/r/c/g. Carotid pulses 2+ wo bruit NEURO: MS: awake, alert, oriented to all spheres. Speech nondysarthric. No language disturbance. Follows commands. Attends to both sides. Recent/remote memory grossly intact. Mood euthymic. Good fund of knowledge. CN: pupils 3mm round and reactive. Intolerant of fundoscopy. VFF. Primary gaze centered. Full ocular motility, though smooth pursuits with saccadic intrusions. Facial sensation preserved. Face symmetric. Hearing grossly intact to finger rub. Palatoglossal movements intact. Shoulder shrug and head turn strong. MOTOR: normal bulk/tone. No adventitial movements. Trace hip flexor weakness bilaterally, but otherwise full power throughout. SENSORY: absent JPS in great toes, absent vib in great toes and malleoli, reduced temp in feet, reduced PP in gradient fashion to mid-medina, LT intact. No extinction. COORD: no ataxia FN/HS. Katerina labored. Romberg pos. REFLEX: plantars mute. No clonus. Absent ankle jerks, trace patellars, other DTRS 2/4. GAIT: rises pushing off from bed with arms. Has a widened base with an ataxic gait. Turns in 4 steps. Unable to tandem. 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 What he is demonstrating for me at his bed here is not weakness, but sensory ataxia from his neuropathy, making it difficult for him to find his feet underneath him. No evidence of acute stroke on MRI - chronic lacunes in the posterior circulation, not related to his ELENA stenosis. He has some hip flexor weakness likely from deconditioning. Recommend evaluation with PT for gait safety. Optimize blood glucose/A1c with PCP. Continue medical management of ELENA stenosis/chronic lacunar infarcts. Objective: Vital Signs Temp Pulse Resp BP Pulse Ox 37.0 C 75 14 130/68 H 93 03/02/17 08:24 03/02/17 11:22 03/02/17 11:22 03/02/17 11:22 03/02/17 11:22 Laboratory Results 03/02/17 11:13 03/02/17 11:13 03/01/17 03/02/17 03/03/17 05:59 05:59 05:59 Intake Total 1200 250 Output Total 350 300 Balance 850 -50 Allergies/Adverse Reactions: Penicillins Allergy (Unknown, Verified 02/26/13 18:54)
[2017-03-02 13:44] VITALS: O2SAT 87
--- NOTE | 2017-03-03 16:07 | ASDISCHSUM ---
Discharge Information Plan Status:Home with Home Health Medically Cleared to Leave: Discharge Date:03/02/2017 01:15 PM CM D/C Disposition:Home, Routine, Self-Care ADT D/C Disposition:Home Health Service Projected Discharge Date:03/02/2017 11:00 AM Transportation at D/C: Discharge Delay Reason: Follow-Up Date:03/02/2017 11:00 AM Discharge Slot: Final Diagnosis: Placement Information Referral Type:*Home Health Care Services Referral ID:[id number] Provider Name:[facility] [place] Address 1:[facility] [address] Address 2: City:[place] Selection Factors: State:[place] Patient Contact Information Contact Name:MARCOS Relationship: Address:[address] Work Phone: [facility] Alternate Phone: [facility]/Zip Code:[place] [address] Email: Financial Information Financial Class: Primary Plan Desc:MEDICARE OUTPATIENT Primary Plan Number:[id number] [facility] Secondary Plan Number:[id number] Assessment Information [facility] CM Progress Note CM Note CM Note Notes: Patient admitted for possible CVA, carotid stenosis, weakness. Patient was noted to have slight right sided facial droop and right leg weakness. Patient had a fall earlier today and states he has been having increased falls over the past several weeks to months. Patient lives at home with his and states they have both skilled and non-skilled home help but didn't seem to want to elaborate. Patient states he doesn't use a walker or cane. Anticipate PT/OT and possibly MACHINE ADJUSTER LEADER CASE TRIM evaluations. DC needs unknown. CM to follow. Date Signed: 03/01/2017 03:41 PM Electronically Signed By:Omaira Johnson RN [facility] CM Progress Note CM Note CM Note Notes: Pt medically stable for d/c w [facility]. Date Signed: 03/03/2017 04:06 PM Electronically Signed By:YANICK Kwan Intervention Information Intervention Type:*MORGAN-Signed Date of Service:03/01/2017 03:42 PM Patient Type:Observation Staff Member:CRUZ Johnson, Omaira Hours:0.25 Discipline:Decorating Equipment Setter Severity: Comment:Copy provided to patient, along with s upplemental information from Medicare.gov website. Original MORGAN placed in patient chart.
--- NOTE | 2017-03-07 13:44 | GDS ---
[f rep st] DISCHARGE SUMMARY CONSULTS: Neurology, Dr. Recio; Dr. Hayden, general surgery. 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 HISTORY AND PHYSICAL: Please see previous dictated note by Dr. Wilhelm. ADMISSION DIAGNOSES: Recurrent falls and paresis, concerning for cerebrovascular accident, known car otid stenosis, known coronary artery disease. DISCHARGE DIAGNOSES: Sensory ataxic gait, diabetic peripheral neuropathy, asymptomatic carotid steno sis, known coronary artery disease. HOSPITAL COURSE: The patient was admitted to the hospital for further evaluation after coming to the emergency department because of having frequent falls and an acute sense that he was having worsenin g weakness in his legs. He had a brain MRI and laboratory studies. He was admitted to the hospital for further evaluation and neurological consultation. MRI noted as above. Dr. Recio, neurology, s aw the patient on the day of discharge, and felt that his symptoms were more consistent with sensory ataxia and longstanding diabetic neuropathy with chronic deconditioning. He did not feel the patient needed any active intervention at this time, and he was discharged home. Dr. Hayden, surgery, also anila luated the patient and did not feel that surgical intervention was needed at this time. I spoke with his primary care provider, Dr. Pepper Thibodeaux, on the day of discharge, to assist in coordinating ou tpatient care. Of note, he was very anxious on the day of discharge, as he wanted to get home to his to take ca re of her. It sounds like they have had longstanding issues with her falling also and discussed with Dr. Thibodeaux home health care likely advisable for both patients and hopefully [facility] wi ll do a full evaluation and assist with her care. DISCHARGE MEDICATIONS: No change to his chronic medications. DISCHARGE INSTRUCTIONS: Home healthcare has been arranged. He has had PT evaluation while here and has been advised to use a walker always. He should follow up with his primary care provider, Dr. Carito Thibodeaux, within a few days of discharge. If at any time he has worsening symptoms or new symptom s, he should return immediately for re-evaluation. /[id number]/MODL
== END 2017-03-02 13:15 | disposition home health service (06) ==
LOC: EDUNIT# → F3N 16:10
PROVIDERS: ADMIT Internal Medicine; ATTEND Family Medicine
DX: R53.1 Weakness (principal); E86.9 Volume depletion, unspecified; I65.21 Occlusion and stenosis of right carotid artery; I10 Essential (primary) hypertension; I25.10 Atherosclerotic heart disease of native coronary artery without angina pectoris; Z95.5 Presence of coronary angioplasty implant and graft; E11.40 Type 2 diabetes mellitus with diabetic neuropathy, unspecified; R26.0 Ataxic gait; Z86.73 Personal history of transient ischemic attack (TIA), and cerebral infarction without residual deficits
CPT/HCPCS: 70450; 70496; 70498; 70551; 92523; 93005; 96360; 97161; 97165; 97530; 99285; G0378; G8978; G8979; G8980; G8987; G8988; G8989; G9165; G9166; G9167; Q9967

== ENCOUNTER 2017-03-04 16:23 | Emergency (ER) | payer OTHER ==
--- NOTE | 2017-03-04 16:49 | CPEKG ---
Heart Rate: 76 RR Interval: 789 P-R Interval: 228 QRSD Interval: 90 QT Interval: 400 QTC Interval: 450 P [place]: 32 QRS [place]: 41 T Wave [place]: 41 EKG Severity - ABNORMAL ECG - EKG Impression: SINUS RHYTHM EKG Impression: FIRST DEGREE AV BLOCK Electronically Signed By: Ibeth Gil 04-Mar-2017 23:17:50
--- NOTE | 2017-03-04 17:00 | EDPHY ---
H & P Stated Complaint: mechanical fall taking out trash/scraped hands and knees hit forehead/no lo - Personal History Current Tetanus/Diphtheria Vaccine: Unsure - Medical/Surgical History Hx Asthma: No Hx Chronic Respiratory Disease: No Hx Diabetes: Yes Hx Cardiac Disease: Yes Hx Renal Disease: No Hx Cirrhosis: No Hx Alcoholism: No Hx HIV/AIDS: No Hx Splenectomy or Spleen Trauma: No Other PMH: ESPOPHAGEAL STRITURE, CARTOID STENOSIS, DM/cva - Social History Smoking Status: Never smoked HPI/ROS: CHIEF COMPLAINT: Multiple abrasions, fall HISTORY OF PRESENT ILLNESS: The patient is an 86 y/o male arriving with his family for evaluation after a fall today. He was admitted 3 days ago for acute lower leg weakness and suspected stroke on 03/01/17. He was discharged home two days ago with PT and OT follow up scheduled. Today he was bringing the trash in and the bin started rolling away from him causing him to fall forward and knuckles, and knees on the ground. He is supposed to be using a walker at home, but set it aside while moving the trash. He complains of pain primarily in both hands, but doesn't "think anything is broken." His hands and knee hit first and he scraped his forehead on the pavement, but didn't hit his head hard. He did not lose consciousness and denies acute weakness or paresthesias. His neighbor helped him to standing and he was able to walk with assistance after the fall. He denies headache, neck pain, chest pain, abdominal pain, or hip pain. He takes a daily aspirin, but no anticoagulants. REVIEW OF SYSTEMS: Constitutional: No acute weakness Eyes: No visual changes or eye pain ENT: No dental trauma Neck: No pain or injury Respiratory: No shortness of breath Cardiac: No chest pain Gastrointestinal: No abdominal pain, no vomiting Back: No pain or injury Genitourinary: No hematuria Musculoskeletal: see HPI Skin: No lacerations Neurological: No headache, no dizziness (Ibeth Gil) - Medical/Surgical History PMH: PMH includes: 1. Diabetes type 2 2. Severe carotid stenosis 3. Esophageal stricture 4. CAD post stenting 15 years ago Prior medical records reviewed including admission 03/01/17 for acute weakness. (Ibeth Gil) - Social History Additional Social History: Nonsmoker. No alcohol use. and neighbor at bedside. Lives in [place]. PCP: Dr. Thibodeaux. (Ibeth Gil) - Physical Exam Exam: General Appearance: Alert, no distress Head: Forehead abrasion, otherwise atraumatic Eyes: No conjunctival erythema, PERRLA, EOMI ENT, Mouth: No hemotympanum, no oral trauma, no bony tenderness Neck: Non-tender, full range of motion without pain Respiratory: No chest wall tenderness, lungs clear bilaterally Cardiovascular: Regular rate and rhythm Abdomen: Abdomen is soft and non tender Skin: No lacerations, right elbow abrasion, bilateral dorsal knuckle abrasions , superficial bilateral knee abrasions, forehead abrasion Back: No midline T/L/S tenderness Extremities: Pelvis is stable and nontender; no shoulder, elbow, hip wrist, or feet tenderness or deformity, mild tenderness to bilateral 2nd-5th PIP joints with overlying abrasions, full range of motion or major joints without pain Neurological: A&Ox3, normal motor function, normal sensory exam, cranial nerves intact Psychiatric: Mood and affect normal (Ibeth Gil) Constitutional: Initial Vital Signs Temperature (C) 36.4 C 03/04/17 16:29 Heart Rate 77 03/04/17 16:29 Respiratory Rate 20 03/04/17 16:29 Blood Pressure 170/76 H 03/04/17 16:29 O2 Sat (%) 95 03/04/17 16:29 O2 Delivery Mode Room Air Allergies/Adverse Reactions: Penicillins Allergy (Unknown, Verified 02/26/13 18:54) Home Medications: Medication Instructions Recorded Aspirin EC [Aspirin EC 81 mg (*)] 81 mg PO DAILY 10/26/15 Metoprolol Succinate Xr [Toprol Xl 25 mg PO DAILY 10/26/15 25 mg (*)] metFORMIN HCL [Metformin HCl ER] 500 mg PO DAILY 10/26/15 Atorvastatin Calcium [Lipitor 40 40 mg PO DAILY 03/01/17 mg (*)] metFORMIN HCL [Metformin HCl ER] 1,000 mg PO HS 03/01/17 Acetaminophen [Tylenol 325mg (*)] 650 mg PO Q4HRS PRN tab 03/02/17 Medical Decision Making - Diagnostics Imaging: Discussed imaging studies w/ record label intern Radiologist, I viewed and interpreted images myself - Diagnostics Imaging Results: Imaging Impressions Hand X-Ray 03/04/17 17:02 Impression: 1. Atherosclerotic disease in small arteries. Is this patient diabetic? 2. Degenerative cysts versus erosions in the right carpal bones described above. 3. Left third finger dorsal metallic foreign body, of uncertain clinical significance. 4. No fracture. Hand X-Ray 03/04/17 17:02 Impression: 1. Atherosclerotic disease in small arteries. Is this patient diabetic? 2. Degenerative cysts versus erosions in the right carpal bones described above. 3. Left third finger dorsal metallic foreign body, of uncertain clinical significance. 4. No fracture. Procedures: Procedure: Laceration repair. I was requested by Dr. Gil to perform wound closure I explained the indications, risks and benefits for both laceration repair and anesthetic administration. Verbal consent was obtained from the patient . The multiple lacerations on the dorsal aspect of his bilateral hands were anesthetized using 0.5% bupivicaine without epinephrine . After anesthetic administered the patient was observed for a period of time and had no apparent adverse effects. The wounds were cleaned, prepped, draped in normal sterile fashion and explored to their base. Cumulative length of lacerations is 5 cm. No foreign body seen, no foreign bodies palpated. There were no deep structures involved. No tendon injury was identified. Some wounds or lodged heal via secondary intention, others closed with primary closure with total of 9 simple interrupted 5 O Prolene sutures for multiple digits. (Dahiana Malhotra) ED Course/Re-evaluation: This is an 86 y/o male with a history of a recent suspected CVA who presents with multiple abrasions after he fell while moving the trash bin this afternoon. This was a mechanical fall and there is no evidence of syncope or other worrisome cause for the fall. He is at his neurovascular baseline and primarily complains of pain at the site of multiple abrasions extending across the dorsal PIP joints of fingers 2-5 on each hand. ROM of all joints is intact. Plan for EKG, wound care, and bilateral hand x-rays to rule out fracture. The 12 lead EKG was interpreted by myself. See hard copy and/or "tracemaster" electronic copy for interpretation. Hand x-rays: no acute fracture. Calcification of the small vessels in the hand and degenerative changes. 1750: Reassessed patient and discussed x-rays. His exam remains unchanged. Lacerations sutured by SHYANNE Herrera. The pt and his family are comfortable with plan for discharge home. He walks with steady gait using his walker. We discussed standard wound care and follow up instructions with his PCP for revaluation in a few days. Return precautions given. (Ibeth Gil) Differential Diagnosis: Differential diagnosis includes though it is not limited to fracture, intracranial hemorrhage, pneumothorax, hemothorax, intra-abdominal hemorrhage. ( Ibeth Gil) - Data Points Medications Given: Discontinued Medications Tetanus/Diphtheria Toxoids Adsorbed (Tetanus-Diphtheria Grifols) 0.5 ml IM .ONCE ONE Stop: 03/04/17 17:04 Last Admin: 03/04/17 17:44 Dose: 0.5 ml Departure - Departure Disposition: Home, Routine, Self-Care Clinical Impression: Multiple abrasions Fall Qualifiers: Encounter type: initial encounter Qualified Code(s): W19.XXXA - Unspecified fall, initial encounter Condition: Good Instructions: Fall Prevention for Older Adults (ED), Abrasion (ED), Acute Wounds (ED) Additional Instructions: 1. Follow up with Dr. Thibodeaux in 3-4 days. 2. Return to the ED for severe pain, dramatic increase in redness or swelling at wound sites, fever, foul odor from wounds, severe headache, vision changes, new weakness or numbness, or other worsening of condition. Referrals: Pepper Thibodeaux MD [Primary Care Provider] - As per Instructions Report Scribed for: Ibeth Gil Report Scribed by: Vira Arizmendi Date of Report: 03/04/17 Time of Report: 17:00 Physician Review and Approval Statement: 03/04/17 17:00 Portions of this note were transcribed by a manager medical. I personally performed a history, physical exam, medical decision making, and confirmed accuracy of information the transcribed note. (Ibeth Gil)
[2017-03-04] MEDS ORDERED: TETANUS, DIPHTHERIA TOX (7YR+) 0.5 ML INJ IM ONE (17:03)
[2017-03-04 20:15] VITALS: BP 174/102; PULSE 68; RESP 18; O2SAT 96
[2017-03-04 20:33] VITALS: TEMP 97.7
== END 2017-03-04 20:38 | disposition home or self-care (01) ==
DX: S00.81XA Abrasion of other part of head, initial encounter (principal); S50.311A Abrasion of right elbow, initial encounter; S80.211A Abrasion, right knee, initial encounter; S80.212A Abrasion, left knee, initial encounter; E11.9 Type 2 diabetes mellitus without complications; I25.10 Atherosclerotic heart disease of native coronary artery without angina pectoris; S61.411A Laceration without foreign body of right hand, initial encounter; S61.412A Laceration without foreign body of left hand, initial encounter; Z95.5 Presence of coronary angioplasty implant and graft; Z79.82 Long term (current) use of aspirin; Z79.84 Long term (current) use of oral hypoglycemic drugs; Z23 Encounter for immunization; W01.198A Fall on same level from slipping, tripping and stumbling with subsequent striking against other object, initial encounter; Y92.009 Unspecified place in unspecified non-institutional (private) residence as the place of occurrence of the external cause

== ENCOUNTER 2017-07-20 11:54 | Observation (INO) | payer OTHER ==
--- NOTE | 2017-07-20 12:23 | CPEKG ---
Heart Rate: 73 RR Interval: 822 P-R Interval: 236 QRSD Interval: 90 QT Interval: 412 QTC Interval: 454 P [place]: 77 QRS [place]: 47 T Wave [place]: 59 EKG Severity - ABNORMAL ECG - EKG Impression: SINUS RHYTHM EKG Impression: FIRST DEGREE AV BLOCK Electronically Signed By: Nick Armenta 20-Jul-2017 14:18:10
[2017-07-20 12:30] LABS: PLATELET COUNT 245 10^3/uL (150-400)
[2017-07-20] MEDS ORDERED: NS 2,300 ML IV ONE (13:09)
--- NOTE | 2017-07-20 13:10 | EDPHY ---
H & P Stated Complaint: AMS Time Seen by Provider: 07/20/17 12:47 HPI/ROS: CHIEF COMPLAINT: Altered mental status HISTORY OF PRESENT ILLNESS: The patient is an 87-year-old man who is brought in by ambulance for altered mental status. The patient is confused and does not give a reliable history. He primarily complains of old symptoms that he has had for years and years including peripheral neuropathy, generalized weakness, a right carotid stenosis, and intermittent vertigo. He denies a any vertigo currently and states that none of his other symptoms are worse. He denies any pain. I called his Christie who is very hard of hearing so there friend Kandis helped with the phone conversation. According to them they called an ambulance today because he has become more confused since May and they are worried about dementia however his symptoms worsened significantly today. He has not had a fever. He has not had any pain. He has not had a cough or respiratory symptoms. No urinary symptoms. He has not had any nausea vomiting or diarrhea. His weakness has not worsened it is not focal. He has not had a headache. He called his primary's office Dr. Thibodeaux who recommended he come to the ER and get "a whole bunch of tests ". REVIEW OF SYSTEMS: Constitutional: denies: chills, fever, recent illness, recent injury EENTM: denies: blurred vision, double vision, nose congestion Respiratory: denies: cough, shortness of breath Cardiac: denies: chest pain, irregular heart rate, lightheadedness, palpitations Gastrointestinal/Abdominal: denies: abdominal pain, diarrhea, nausea, vomiting, blood streaked stools Genitourinary: denies: dysuria, frequency, hematuria, pain Musculoskeletal: denies: joint pain, muscle pain Skin: denies: lesions, rash, jaundice, bruising Neurological: See HPI denies: headache, numbness, paresthesia, tingling, dizziness, weakness Hematologic/Lymphatic: denies: blood clots, easy bleeding, easy bruising Immunologic/allergic: denies: HIV/AIDS, transplant EXAM: GENERAL: Well-appearing, well-nourished and confused, very long winded but difficulty remaining on topic. HEAD: Atraumatic, normocephalic. EYES: Pupils equal round and reactive to light, extraocular movements intact, sclera anicteric, conjunctiva are normal. ENT: TMs normal, nares patent, oropharynx clear without exudates. Moist mucous membranes. NECK: Normal range of motion, supple without lymphadenopathy or JVD. LUNGS: Breath sounds clear to auscultation bilaterally and equal. No wheezes rales or rhonchi. HEART: Regular rate and rhythm without murmurs, rubs or gallops. ABDOMEN: Soft, nontender, normoactive bowel sounds. No guarding, no rebound. No masses appreciated. BACK: No CVA tenderness, no spinal tenderness, step-offs or deformities EXTREMITIES: Normal range of motion, no pitting or edema. No clubbing or cyanosis. NEUROLOGICAL: Cranial nerves II through XII grossly intact. Normal speech, normal gait. 5/5 strength, normal movement in all extremities, normal sensation PSYCH: Normal mood, normal affect. Pleasant SKIN: Warm, dry, normal turgor, no visible rashes or lesions. Source: Patient, Family, EMS Exam Limitations: Clinical condition - Personal History Current Tetanus/Diphtheria Vaccine: Unsure Current Tetanus Diphtheria and Acellular Pertussis (TDAP): Unsure - Medical/Surgical History Hx Asthma: No Hx Chronic Respiratory Disease: No Hx Diabetes: Yes Hx Cardiac Disease: Yes Hx Renal Disease: No Hx Cirrhosis: No Hx Alcoholism: No Hx HIV/AIDS: No Hx Splenectomy or Spleen Trauma: No Other PMH: Hypertension, diabetes, coronary artery disease, asymptomatic right carotid artery stenosis, peripheral neuropathy, chronic bilateral lower extremity weakness, deconditioning, unsteady gait, intermittent peripheral vertigo - Social History Smoking Status: Never smoked Alcohol Use: Sober Constitutional: Initial Vital Signs Temperature (C) 36.4 C 07/20/17 11:59 Heart Rate 73 07/20/17 11:59 Respiratory Rate 18 07/20/17 11:59 Blood Pressure 178/101 H 07/20/17 11:59 O2 Sat (%) 99 07/20/17 11:59 O2 Delivery Mode Room Air Allergies/Adverse Reactions: Penicillins Allergy (Unknown, Verified 02/26/13 18:54) Home Medications: Medication Instructions Recorded Aspirin EC [Aspirin EC 81 mg (*)] 81 mg PO DAILY 10/26/15 Metoprolol Succinate Xr [Toprol Xl 25 mg PO DAILY 10/26/15 25 mg (*)] metFORMIN HCL [Metformin HCl ER] 500 mg PO DAILY 10/26/15 Atorvastatin Calcium [Lipitor 40 40 mg PO DAILY 03/01/17 mg (*)] metFORMIN HCL [Metformin HCl ER] 1,000 mg PO HS 03/01/17 Acetaminophen [Tylenol 325mg (*)] 650 mg PO Q4HRS PRN tab 03/02/17 Medical Decision Making - Diagnostics EKG Interpretation: An EKG obtained and was read and documented in trace view. Please see trace view for full reading and report. No acute abnormality Imaging: Discussed imaging studies w/ environmental science instructor Radiologist ED Course/Re-evaluation: The patient does have a slightly elevated lactate and received a fluid bolus. He does not however have SIRS criteria. His vital signs are normal and his white count is not elevated or depressed. Current we do not have a source of infection either. I will therefore not declare him septic. I will repeat a lactate however. 3:15 p.m. the thus far patient's workup has been unremarkable. He does not qualify for SIRS criteria. He has received fluids. I do not have a explanation for his altered mental status. No recent medication changes. He does not have a headache or fever. I do not think and lumbar puncture is indicated. I will admit to the hospitalist service for further workup. 318 p.m. I discussed the case with Dr. Bill who will admit to the hospital service. Differential Diagnosis: Partial list of the Differential diagnosis considered include but were not limited to; altered mental status, dementia, urinary tract infection, pneumonia , dehydration and although unlikely based on the history and physical exam, I also considered hypoxia, CVA, trauma. - Data Points Laboratory Results: Laboratory Results 07/20/17 12:00 07/20/17 12:00 Medications Given: Aspirin Buffered (Aspirin Ec) 81 mg PO DAILY [facility] Stop: 01/17/18 08:59 Last Admin: 07/21/17 08:09 Dose: 81 mg Atorvastatin Calcium (Lipitor) 40 mg PO DAILY [facility] Stop: 01/17/18 08:59 Last Admin: 07/21/17 08:09 Dose: 40 mg Enoxaparin Sodium (Lovenox) 40 mg SC DAILY [facility] Stop: 01/17/18 08:59 Last Admin: 07/21/17 08:11 Dose: Not Given Hydralazine HCl (Apresoline) 5 mg IVP Q6HRS PRN PRN Reason: SBP Greater Than 160 Stop: 01/16/18 15:29 Last Admin: 07/20/17 23:26 Dose: 5 mg Ibuprofen (Motrin) 400 mg PO Q6HRS PRN PRN Reason: Pain, Inflammatory Stop: 01/17/18 00:14 Last Admin: 07/21/17 02:37 Dose: 400 mg Insulin Human Lispro (Humalog Lispro) 0 unit SC TIDMEAL OCTAVIA PRN Reason: Protocol Stop: 01/16/18 17:59 Last Admin: 07/21/17 11:35 Dose: Not Given Lidocaine (Lidoderm 5%) 1 ea TD DAILY [facility] Stop: 01/17/18 08:59 Last Admin: 07/21/17 08:11 Dose: Not Given Metoprolol Succinate (Toprol Xl) 25 mg PO DAILY [facility] Stop: 01/17/18 08:59 Last Admin: 07/21/17 08:09 Dose: 25 mg Discontinued Medications Sodium Chloride (Ns) 2,300 mls @ 383.3333 mls/hr 30 ml/kg infuse over 6 hr ( 2300 ml) IV EDNOW ONE PRN Reason: Protocol Stop: 07/20/17 19:08 Last Admin: 07/20/17 14:08 Dose: 2,300 mls Departure - Departure Disposition: [facility] Inpatient Acute Clinical Impression: Altered mental status, unspecified Qualifiers: Altered mental status type: disorientation Qualified Code(s): R41.0 - Disorientation, unspecified Condition: Fair
[2017-07-20 14:44] LABS: INR 1.05 (0.83-1.16); PROTIME(PATIENT) 13.9 SEC (12.0-15.0)
[2017-07-20] MEDS ORDERED: D50W 25 GM/50 ML SYR IVP PRN (15:31)
[2017-07-20] MEDS ORDERED: ONDANSETRON DISINTEGRATING 4 MG TAB PO PRN (15:31)
[2017-07-20] MEDS ORDERED: ONDANSETRON 4 MG/2 ML VIAL IVP PRN (15:31)
[2017-07-20] MEDS ORDERED: ACETAMINOPHEN 325 MG TAB PO PRN (15:31)
--- NOTE | 2017-07-20 16:27 | ASMTLACE ---
DAISHA Acuity / Level of Answers: Yes Care: Did the patient have an inpatient admission? Comorbidities - select Answers: Cerebrovascular disease all that apply (CVA, TIA, aneurysms, vasc ular dementia) Diabetes (uncontrolled or controlled) # of Emergency department Answers: 1-2 visits in the last 6 months Score: 6 Date Signed: 07/20/2017 04:27 PM Electronically Signed By:Shannan Javed RN
--- NOTE | 2017-07-20 17:28 | PDGENHP ---
History and Physical - Chief Complaint AMS - History of Present Illness The patient is an 87-year-old man who is brought in by ambulance for altered mental status. The patient is confused and does not give a reliable history. He is a poor historian. Hx is obtained from the E.D. note and discussion with the team. He was brought in for worsening confusion. W/u has been negative. He does not have neuro localized deficits. Serum Lactate was 2.1 and he was given large amounts of IVF in the E.D. He was not hypotensive or tachycardic. He does not have Leukocytosis. UA is negative. Influenza is negative. Head CT is negative for acute process. CXR is negative. EKG with no acute changes. He is seen on the floor and has no complaints. - Past Medical History Carotid stenosis, severe, noted as 70-90% at the right carotid bulb in June of 2016, patient elected for nonoperative management with Dr. Jace Hayden at that time. Esophageal stricture. Diabetes mellitus type 2 with most recent hemoglobin A1c 8.3%. Coronary artery disease status post stenting 15 years ago - Surgical History Additional surgical history: esophageal balloon in 2013. Cardiac stent 15 years ago - Family History Additional family history: family history of esophageal cancer achalasia - Social History Smoking Status: Never smoked Alcohol Use: Sober Drug Use: None Additional social history: independent in his ADLs History Information - Allergies/Home Medication List Allergies/Adverse Reactions: Penicillins Allergy (Unknown, Verified 02/26/13 18:54) Home Medications: Aspirin EC [Aspirin EC 81 mg (*)] 81 mg PO DAILY 10/26/15 [Last Taken 07/20/17] Metoprolol Succinate Xr [Toprol Xl 25 mg (*)] 25 mg PO DAILY 10/26/15 [Last Taken 07/20/17] metFORMIN HCL [Metformin HCl ER] 500 mg PO DAILY 10/26/15 [Last Taken 07/20/17] Atorvastatin Calcium [Lipitor 40 mg (*)] 40 mg PO DAILY 03/01/17 [Last Taken 12/28] metFORMIN HCL [Metformin HCl ER] 1,000 mg PO HS 03/01/17 [Last Taken 07/19/17] I have personally reviewed and updated: medical history, social history - Past Medical History Additional medical history: Carotid stenosis, severe, noted as 70-90% at the right carotid bulb in June of 2016, patient elected for nonoperative management with Dr. Jace Hayden at that time. Esophageal stricture. Diabetes mellitus type 2 with most recent hemoglobin A1c 8.3%. Coronary artery disease status post stenting 15 years ago - Surgical History Additional surgical history: esophageal balloon in 2013. Cardiac stent 15 years ago - Family History Additional family history: family history of esophageal cancer achalasia - Social History Smoking Status: Never smoked Alcohol Use: Sober Additional social history: independent in his ADLs Review of Systems Review of Systems: ROS: 10pt was reviewed & negative except for what was stated in HPI & below Physical Exam Physical Exam: Temp Pulse Resp BP Pulse Ox 36.7 C 74 18 175/84 H 97 07/20/17 16:53 07/20/17 16:53 07/20/17 16:53 07/20/17 16:53 07/20/17 16:53 Constitutional: no apparent distress, appears nourished Eyes: PERRL, EOMI Ears, Nose, Mouth, Throat: moist mucous membranes, hearing normal Cardiovascular: regular rate and rhythym, No JVD, No edema Respiratory: no respiratory distress, no rales or rhonchi Gastrointestinal: normoactive bowel sounds, soft, non-tender abdomen Genitourinary: no bladder fullness Skin: warm Musculoskeletal: full muscle strength Neurologic: No AAOx3 Psychiatric: interacting appropriately, encephalopathic Lymph, Heme, Immunologic: No petechiae Lab Data & Imaging Review 07/20/17 12:00 07/20/17 12:00 WBC 8.30 10^3/uL (3.80-9.50) 07/20/17 12:00 RBC 4.20 10^6/uL (4.40-6.38) L 07/20/17 12:00 Hgb 12.9 g/dL (13.7-17.5) L 07/20/17 12:00 Hct 39.0 % (40.0-51.0) L 07/20/17 12:00 MCV 92.9 fL (81.5-99.8) 07/20/17 12:00 MCH 30.7 pg (27.9-34.1) 07/20/17 12:00 MCHC 33.1 g/dL (32.4-36.7) 07/20/17 12:00 RDW 13.2 % (11.5-15.2) 07/20/17 12:00 Plt Count 245 10^3/uL (150-400) 07/20/17 12:00 MPV 10.8 fL (8.7-11.7) 07/20/17 12:00 Neut % (Auto) 74.5 % (39.3-74.2) H 07/20/17 12:00 Lymph % (Auto) 17.7 % (15.0-45.0) 07/20/17 12:00 [place] % (Auto) 5.9 % (4.5-13.0) 07/20/17 12:00 Eos % (Auto) 1.1 % (0.6-7.6) 07/20/17 12:00 Baso % (Auto) 0.4 % (0.3-1.7) 07/20/17 12:00 Nucleat RBC Rel Count 0.0 % (0.0-0.2) 07/20/17 12:00 Absolute Neuts (auto) 6.19 10^3/uL (1.70-6.50) 07/20/17 12:00 Absolute Lymphs (auto) 1.47 10^3/uL (1.00-3.00) 07/20/17 12:00 Absolute Monos (auto) 0.49 10^3/uL (0.30-0.80) 07/20/17 12:00 Absolute Eos (auto) 0.09 10^3/uL (0.03-0.40) 07/20/17 12:00 Absolute Basos (auto) 0.03 10^3/uL (0.02-0.10) 07/20/17 12:00 Absolute Nucleated RBC 0.00 10^3/uL (0-0.01) 07/20/17 12:00 Immature Gran % 0.4 % (0.0-1.1) 07/20/17 12:00 Immature Gran # 0.03 10^3/uL (0.00-0.10) 07/20/17 12:00 PT 13.9 SEC (12.0-15.0) 07/20/17 11:55 INR 1.05 (0.83-1.16) 07/20/17 11:55 APTT 32.8 SEC (23.0-38.0) 07/20/17 11:55 VBG Lactic Acid 2.2 mmol/L (0.7-2.1) H 07/20/17 15:31 Turbidity Cancelled 07/20/17 12:00 Sodium 142 mEq/L (135-145) 07/20/17 12:00 Potassium 4.5 mEq/L (3.5-5.2) 07/20/17 12:00 Chloride 103 mEq/L (97-110) 07/20/17 12:00 Carbon Dioxide 24 mEq/l (22-31) 07/20/17 12:00 Anion Gap 15 mEq/L (8-16) 07/20/17 12:00 BUN 22 mg/dL (7-23) 07/20/17 12:00 Creatinine 0.9 mg/dL (0.7-1.3) 07/20/17 12:00 Estimated GFR > 60 07/20/17 12:00 Glucose 254 mg/dL (70-100) H 07/20/17 12:00 Calcium 9.6 mg/dL (8.5-10.4) 07/20/17 12:00 Total Bilirubin 1.4 mg/dL (0.1-1.4) 07/20/17 12:00 Conjugated Bilirubin 0.4 mg/dL (0.0-0.5) 07/20/17 12:00 Unconjugated Bilirubin 1.0 mg/dL (0.0-1.1) 07/20/17 12:00 AST 16 IU/L (17-59) L 07/20/17 12:00 ALT 20 IU/L (21-72) L 07/20/17 12:00 Alkaline Phosphatase 82 IU/L (38-126) 07/20/17 12:00 Ammonia < 9.0 uMOL/L (9.0-30.0) L 07/20/17 15:31 Troponin I < 0.012 ng/mL (0.000-0.034) 07/20/17 12:00 Total Protein 6.5 g/dL (6.3-8.2) 07/20/17 12:00 Albumin 3.8 g/dL (3.5-5.0) 07/20/17 12:00 Specimen Hemolysis Cancelled 07/20/17 12:00 Urine Color YELLOW 02/07/18 14:45 Urine Appearance CLEAR 07/20/17 14:45 Urine pH 5.0 (5.0-7.5) 07/20/17 14:45 Ur Specific [place] 1.015 (1.002-1.030) 07/20/17 14:45 Urine Protein NEGATIVE (NEGATIVE) 07/20/17 14:45 Urine Ketones NEGATIVE (NEGATIVE) 07/20/17 14:45 Urine Blood NEGATIVE (NEGATIVE) 07/20/17 14:45 Urine Nitrate NEGATIVE (NEGATIVE) 07/20/17 14:45 Urine Bilirubin NEGATIVE (NEGATIVE) 07/20/17 14:45 Urine Urobilinogen NEGATIVE EU (0.2-1.0) 07/20/17 14:45 Ur Leukocyte Esterase NEGATIVE (NEGATIVE) 07/20/17 14:45 Urine RBC 1-3 /hpf (0-3) 07/20/17 14:45 Urine WBC 1-3 /hpf (0-3) 07/20/17 14:45 Ur Epithelial Cells TRACE /lpf (NONE-1+) 07/20/17 14:45 Hyaline Casts 1-5 /lpf (0-1) 07/20/17 14:45 Urine Mucus 1+ /lpf (NONE-1+) 07/20/17 14:45 Urine Glucose 1+ (NEGATIVE) H 07/20/17 14:45 Nasal Influenza A PCR NEGATIVE FOR FLU A (NEGATIVE) 07/20/17 13:54 Nasal Influenza B PCR NEGATIVE FOR FLU B (NEGATIVE) 07/20/17 13:54 Assessment & Plan Assessment: #Acute on Chronic Encephalopathy #HTN #DMII #Mild elevated Serum Lactate, s/p IVF #CAD Plan: -Observation -check ammonia -unclear what his baseline mentation is. He may be a his baseline or he may have some slow cognitive decline -Restart appropriate home medication -Hold Metformin, start ISS -PT/OT eval -Monitor volume status given hx of CAD and large amounts of IVF, appears ok now -Recheck serum lactate, no source of infectious etiology at this time -Lovenox for DVT proph -DNR per record
[2017-07-20] MEDS: INSULIN LISPRO 100 UNIT/ML SC SCH (18:27)
[2017-07-20] MEDS: hydrALAZINE 20 MG/ML VIAL IVP PRN ×2 (18:32→23:26)
[2017-07-21] MEDS ORDERED: IBUPROFEN 200 MG TAB PO PRN (00:15)
[2017-07-21 04:53] VITALS: RESP 18
[2017-07-21 07:44] VITALS: BP 152/87; PULSE 81; TEMP 98.5; O2SAT 96
[2017-07-21] MEDS: INSULIN LISPRO 100 UNIT/ML SC SCH ×2 (08:09→11:35)
--- NOTE | 2017-07-21 08:15 | HOSPPROG ---
Hospitalist Progress Note Assessment/Plan: Patient is an 87-year-old male who was brought in for altered mental status. On admission he was noted to be confused and difficult to get a reliable history. Reviewing his workup there is no infectious etiology. His serum lactate was elevated and he was given fluids. Today is my 1st encounter with the patient. #Acute on Chronic Encephalopathy CT of head is negative No infectious etiology is noted, ammonia level is stable Spoke with patient's , he has been getting worsening memory issues I suspect he has some dementia Will ask speech therapy to do a cognitive evaluation #HTN: 152/87 #DMII: overall stable #Mild elevated Serum Lactate, s/p IVF recheck now # plan. Spoke with patient's Christie. It sounds as though he has had some bouts of confusion over time. Wants to know where someone should live with dementia. She will be in this afternoon at noon and I will discuss further follow up with Neurology in the outpatient setting Subjective: Jeremy wants to go home. Objective: Vital Signs Temp Pulse Resp BP Pulse Ox 36.9 C 81 18 152/87 H 96 07/21/17 07:43 07/21/17 08:09 07/21/17 07:43 07/21/17 08:09 07/21/17 07:43 Laboratory Results 07/21/17 04:46 07/20/17 07/21/17 07/22/17 05:59 05:59 05:59 Intake Total 650 Output Total 300 Balance 350 PT 13.9 SEC (12.0-15.0) 07/20/17 11:55 INR 1.05 (0.83-1.16) 07/20/17 11:55 - Physical Exam Constitutional: no apparent distress, appears nourished, not in pain Eyes: PERRL Ears, Nose, Mouth, Throat: hearing normal Cardiovascular: regular rate and rhythym Respiratory: no respiratory distress Gastrointestinal: normoactive bowel sounds Skin: warm Musculoskeletal: generalized weakness Neurologic: other (Alert and oriented to person not to place but to time. Wants to go home) Psychiatric: poor insight, poor judgement, poor memory ICD10 Worksheet Patient Problems: Problems Problem Status Onset Altered mental status, unspecified Acute CVA, old, facial weakness Acute
[2017-07-21] MEDS ORDERED: METOPROLOL SUCCINATE XR 25 MG TAB PO SCH (09:00)
[2017-07-21] MEDS ORDERED: ENOXAPARIN 40 MG/0.4 ML SYR SC SCH (09:00)
[2017-07-21] MEDS ORDERED: LIDOCAINE 5% 1 EA PATCH TD SCH (09:00)
[2017-07-21] MEDS ORDERED: ASPIRIN EC 81 MG TAB PO SCH (09:00)
[2017-07-21] MEDS ORDERED: ATORVASTATIN CALCIUM 40 MG TAB PO SCH (09:00)
--- NOTE | 2017-07-21 13:47 | GDS ---
[f rep st] DISCHARGE SUMMARY DISCHARGE DIAGNOSES: 1. Acute on chronic encephalopathy. 2. Hypertension. 3. Diabetes type 2. 4. Elevated serum lactate. BRIEF HISTORY: The patient is an 87-year-old male who is brought in for altered mental status. In t alking with his today, she said that he felt he needed to see a doctor and that he was quite ill , so they dialed 9-1-1, and had him transferred to the hospital. Reviewing all of his workup, there is no etiology of an infectious cause of this. He had a CT of his head that is negative. He seemed better after he was given fluids. He will be discharged today. The and the patient were aware, he needs further followup with a neurologist. The is familiar with Dr. Lamine Spencer, and the y will make an appointment with him. I suspect that this gentleman has dementia that has been progre ssing over the last year. HOSPITAL COURSE: 1. Acute on chronic encephalopathy. CT of head is negative. Very likely that he has dementia that needs treatment. 2. Hypertension. Blood pressure is 152/87. 3. Diabetes type 2. Resumed his metformin. 4. Elevated lactate. He was given fluids. His lactate level is stable at discharge. PENDING LABORATORY: Blood culture is pending. CONDITION AT DISCHARGE: Stable. Blood pressure is 152/87, heart rate is 81, respiratory rate is 18, O2 sats on room air 96%, temperature is 36.9 Celsius. MEDICATIONS AT DISCHARGE: Please see the EMR. DISCHARGE INSTRUCTIONS: 1. To follow up with Dr. Lamine Spencer. 2. He needs to get further evaluation of his blood pressure; it is elevated, but I think it could be secondary to being very anxious, being in the hospital and he is not familiar with it here. 3. Continue home care, as they have scheduled for tomorrow. 4. If the patient becomes agitated or more confused, to return to the emergency room. I have also o ffered to the patient and his and daughter, if they feel it is unsafe to have him go home, he ca n stay here another night. They feel comfortable taking him home. /[id number]/MODL
--- NOTE | 2017-07-21 14:07 | ASMTCMCOM ---
CM Note CM Note Notes: D/w CODING VALIDATOR, pt will return home. Was brought in d/t an increase in confusion. Pt's has hired [facility] to help and daughter also to assist. No other needs identified, CM available for any changes. DC Plan: Home w/family Date Signed: 07/21/2017 02:06 PM Electronically Signed By:Arti Worrell RN
[2017-07-21] MEDS ORDERED: PATCH REMOVAL 1 EA PATCH TD SCH (21:00)
== END 2017-07-21 13:55 | disposition home or self-care (01) ==
LOC: EDUNIT# → F3E 16:53
PROVIDERS: ADMIT Family Medicine; ATTEND Student in an Organized Health Care Education/Training Program
DX: G93.40 Encephalopathy, unspecified (principal); I10 Essential (primary) hypertension; R74.0 Nonspecific elevation of levels of transaminase and lactic acid dehydrogenase [LDH]; E11.40 Type 2 diabetes mellitus with diabetic neuropathy, unspecified; R26.9 Unspecified abnormalities of gait and mobility; R41.0 Disorientation, unspecified; R53.1 Weakness; K22.2 Esophageal obstruction; I25.10 Atherosclerotic heart disease of native coronary artery without angina pectoris; I65.21 Occlusion and stenosis of right carotid artery; G62.9 Polyneuropathy, unspecified; Z79.82 Long term (current) use of aspirin; Z79.84 Long term (current) use of oral hypoglycemic drugs; Z86.73 Personal history of transient ischemic attack (TIA), and cerebral infarction without residual deficits; Z95.5 Presence of coronary angioplasty implant and graft; Z80.0 Family history of malignant neoplasm of digestive organs; Z88.0 Allergy status to penicillin
CPT/HCPCS: 70450; 71046; 93005; G0378; J0360; J1650; J1815

== ENCOUNTER 2017-09-08 07:32 | Emergency (ER) | payer OTHER ==
--- NOTE | 2017-09-08 07:36 | EDPHY ---
HPI/HX/ROS/PE/MDM Narrative: CHIEF COMPLAINT: Fall, scalp laceration HPI: The patient is an 87 y/o male arriving via EMS from home for evaluation of a fall and scalp laceration after using the bathroom this morning. His medical history includes severe carotid stenosis, CVA, CAD status post 2 stents, and diabetes. He was admitted last month with nleez-yn-ymafanw encephalopathy and after a largely negative work up he was discharged with neurology follow up. This morning he describes feeling dizzy and lightheaded after getting off the toilet; he then fell striking the back of his head on a table. It's unclear if he lost consciousness. He is no longer dizzy and only complains of pain at the site of his scalp laceration. EMS reports he was able to stand and walk with assistance on scene. He had a normal prehospital BGL. He denies other injuries or pain, weakness, paresthesias, chest pain, dyspnea, recent illness. He denies taking anticoagulants and is on aspirin per prior records. REVIEW OF SYSTEMS: Aside from elements discussed in the HPI, a comprehensive 10-point review of systems was reviewed and is negative. PMH: Hyperlipidemia, diabetes type 2, CAD with two cardiac stents, severe carotid stenosis managed non-operatively, esophageal stricture, possible dementia, uccyg-ly-ygcfyrv encephalopathy Prior medical records reviewed including ED and admission notes 07/08/16, , 07/20/17. SOCIAL HISTORY: Lives at home with his . 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 DNR and is MPOA per H&P 03/01/17. PHYSICAL EXAM: General:Patient is alert, in no acute distress. Head: 3cm linear laceration left occiput ENT:Eyes are normal to inspection. ENT inspection normal. Neck: Normal inspection. Full range of motion. Respiratory:No respiratory distress. Breath sounds normal bilaterally. Cardiovascular: Regular rate and rhythm. Strong peripheral pulses. Normal cap refill. Abdomen:The abdomen is nontender to palpation. There are no peritoneal signs. Back: Normal to inspection. No tenderness to palpation. Skin: Normal color. No rash. Warm and dry. Extremities: Normal appearance. Full range of motion. Neuro: Oriented x3. Normal motor function. Normal sensory function. ED Course: This is an 87 y/o male with multiple comorbidities including severe carotid stenosis, CAD, and diabetes who presents after a fall with an occipital scalp laceration. He has a normal neuro exam. Presentation could represent gait instability, vasovagal syncope, cardiac etiology, or neurologic issue related to his carotid stenosis. Plan IV, labs, EKG, and head and neck imaging. 500mL IV NS ordered. The 12 lead EKG was interpreted by myself. See hard copy and/or "tracemaster" electronic copy for interpretation. Head CT: nothing acute, diffuse atrophy Head and Neck CTA: no acute posttraumatic findings. Mild progression of right carotid stenosis - 90% Procedure: Laceration repair. Verbal consent was obtained from the patient. The linear 3cm laceration on the right occiput was anesthetized using lidocaine with epinephrine and bupivacaine. The wound was cleaned with standard ED protocol, draped and explored to its base with a gloved finger. There were no deep structures involved.The wound was repaired with Dermabond. The wound repair was simple. The procedure was performed by myself, Dr. Marie. Spoke with patient and his family members regarding carotid stenosis. They had previously consulted with Dr. Hayden on this and had opted to not treat surgically at that time. They understand they need to follow up with his PCP within the week to discuss this. He will be discharged home in good condition. Return precautions discussed. MDM: This patient presents with a syncopal episode resulting in scalp injury. Given known carotid stenosis, we performed additional workup including CTA to exclude critical stenosis/CVA. CTA shows worsening of chronic stenosis but no acute occlusion. I discussed this in detail with family. I think this could certainly be the cause of his syncope but he has elected to forgo surgical treatment. We discussed strict return precautions. - Data Points Imaging Results: Imaging Impressions Head CT 09/08/17 07:45 Impression: 1. No acute intracranial findings. 2. Diffuse cerebral atrophy with periventricular and subcortical low attenuation consistent with chronic microvascular ischemic gliosis. Head CTA 09/08/17 07:45 Impression: 1. No acute posttraumatic findings. 2. Increased severe focal stenosis measuring approximately 90% at the origin of the right internal carotid artery. 2. Moderate atherosclerosis at the left carotid bifurcation without significant stenosis. 3. Degenerative change in the cervical spine with moderate to severe spinal canal narrowing and neural foraminal stenosis. Stenoses are calculated using [place] Symptomatic Carotid Endarterectomy Trial (NASCET) criteria. Findings discussed with Salvatore Marie MD on 09/08/2017 at 8:52 a.m. Neck CTA 09/08/17 07:45 Impression: 1. No acute posttraumatic findings. 2. Increased severe focal stenosis measuring approximately 90% at the origin of the right internal carotid artery. 2. Moderate atherosclerosis at the left carotid bifurcation without significant stenosis. 3. Degenerative change in the cervical spine with moderate to severe spinal canal narrowing and neural foraminal stenosis. Stenoses are calculated using [place] Symptomatic Carotid Endarterectomy Trial (NASCET) criteria. Findings discussed with Salvatore Marie MD on 09/08/2017 at 8:52 a.m. Imaging: Discussed imaging studies w/ call center dispatcher Radiologist, I viewed and interpreted images myself Laboratory Results: Laboratory Results 09/08/17 07:45 09/08/17 07:45 09/08/17 09/08/17 09/08/17 07:57 07:45 07:45 WBC RBC Hgb POC Hgb 10.5 gm/dL L gm/dL (13.7-17.5) Hct POC Hct 31 % L % (40-51) MCV MCH MCHC RDW Plt Count MPV Neut % (Auto) Lymph % (Auto) [place] % (Auto) Eos % (Auto) Baso % (Auto) Nucleat RBC Rel Count Absolute Neuts (auto) Absolute Lymphs (auto) Absolute Monos (auto) Absolute Eos (auto) Absolute Basos (auto) Absolute Nucleated RBC Immature Gran % Immature Gran # PT INR APTT POC Sodium 143 mEq/L mEq/L (135-145) Sodium 144 mEq/L mEq/L (135-145) POC Potassium 3.6 mEq/L mEq/L (3.3-5.0) Potassium 4.7 mEq/L mEq/L (3.5-5.2) POC Chloride 105 mEq/L mEq/L (97-110) Chloride 103 mEq/L mEq/L (97-110) Carbon Dioxide 27 mEq/l mEq/l (22-31) Anion Gap 14 mEq/L mEq/L (8-16) POC BUN 19 mg/dL mg/dL (7-23) BUN 20 mg/dL mg/dL (7-23) Creatinine 0.9 mg/dL mg/dL (0.7-1.3) POC Creatinine 0.9 mg/dL mg/dL (0.7-1.3) Estimated GFR > 60 Glucose 147 mg/dL H mg/dL (70-100) POC Glucose 158 mg/dL H mg/dL (70-100) Calcium 9.3 mg/dL mg/dL (8.5-10.4) Troponin I < 0.012 ng/mL ng/mL Cancelled (0.000-0.034) 09/08/17 09/08/17 07:45 07:45 WBC 7.66 10^3/uL 10^3/uL (3.80-9.50) RBC 3.66 10^6/uL L 10^6/uL (4.40-6.38) Hgb 11.3 g/dL L g/dL (13.7-17.5) POC Hgb Hct 34.5 % L % (40.0-51.0) POC Hct MCV 94.3 fL fL (81.5-99.8) MCH 30.9 pg pg (27.9-34.1) MCHC 32.8 g/dL g/dL (32.4-36.7) RDW 13.9 % % (11.5-15.2) Plt Count 215 10^3/uL 10^3/uL (150-400) MPV 10.9 fL fL (8.7-11.7) Neut % (Auto) 67.9 % % (39.3-74.2) Lymph % (Auto) 20.9 % % (15.0-45.0) [place] % (Auto) 7.4 % % (4.5-13.0) Eos % (Auto) 3.1 % % (0.6-7.6) Baso % (Auto) 0.4 % % (0.3-1.7) Nucleat RBC Rel Count 0.0 % % (0.0-0.2) Absolute Neuts (auto) 5.20 10^3/uL 10^3/uL (1.70-6.50) Absolute Lymphs (auto) 1.60 10^3/uL 10^3/uL (1.00-3.00) Absolute Monos (auto) 0.57 10^3/uL 10^3/uL (0.30-0.80) Absolute Eos (auto) 0.24 10^3/uL 10^3/uL (0.03-0.40) Absolute Basos (auto) 0.03 10^3/uL 10^3/uL (0.02-0.10) Absolute Nucleated RBC 0.00 10^3/uL 10^3/uL (0-0.01) Immature Gran % 0.3 % % (0.0-1.1) Immature Gran # 0.02 10^3/uL 10^3/uL (0.00-0.10) PT 13.8 SEC SEC (12.0-15.0) INR 1.04 (0.83-1.16) APTT 32.5 SEC SEC (23.0-38.0) POC Sodium Sodium POC Potassium Potassium POC Chloride Chloride Carbon Dioxide Anion Gap POC BUN BUN Creatinine POC Creatinine Estimated GFR Glucose POC Glucose Calcium Troponin I Medications Given: Discontinued Medications Sodium Chloride (Ns) 500 mls @ 0 mls/hr IV EDNOW ONE; Wide Open PRN Reason: Protocol Stop: 09/08/17 07:45 Last Admin: 09/08/17 07:55 Dose: 500 mls Point of Care Test Results: 09/08/17 07:57 POC Sodium 143 POC Potassium 3.6 POC Chloride 105 POC BUN 19 POC Creatinine 0.9 POC Glucose 158 H General Initial Vital Signs: Initial Vital Signs Temperature (C) 36.6 C 09/08/17 07:48 Heart Rate 66 09/08/17 07:48 Respiratory Rate 16 09/08/17 07:48 Blood Pressure 201/107 H 09/08/17 07:48 O2 Sat (%) 99 09/08/17 07:48 O2 Delivery Mode Room Air Allergies/Adverse Reactions: Penicillins Allergy (Unknown, Verified 02/26/13 18:54) Home Medications: Medication Instructions Recorded Aspirin EC [Aspirin EC 81 mg (*)] 81 mg PO DAILY 10/26/15 Metoprolol Succinate Xr [Toprol Xl 25 mg PO DAILY 10/26/15 25 mg (*)] metFORMIN HCL [Metformin HCl ER] 500 mg PO DAILY 10/26/15 Atorvastatin Calcium [Lipitor 40 40 mg PO DAILY 03/01/17 mg (*)] metFORMIN HCL [Metformin HCl ER] 1,000 mg PO HS 03/01/17 Acetaminophen [Tylenol 325mg (*)] 650 mg PO Q4HRS PRN tab 03/02/17 Departure - Departure Disposition: Home, Routine, Self-Care Clinical Impression: Scalp laceration, Fall Condition: Good Instructions: Laceration (ED), Fall Prevention for Older Adults (ED) Additional Instructions: Follow up with your primary care provider within one week to discuss carotid stenosis seen on CT. Glue will degrade over time, do not scrub it off. Okay to clean the area gently. Return to the ED for any worsening of condition. Referrals: Pepper Thibodeaux [place] [place] - As per Instructions Report Scribed for: Salvatore Marie Report Scribed by: Vira Arizmendi Date of Report: 09/08/17 Time of Report: 07:38 Physician Review and Approval Statement: Portions of this note were transcribed by an ED scribe. I personally performed the history, physical exam, and medical decision making; and confirm the accuracy of the information in the transcribed note.
[2017-09-08] MEDS ORDERED: NS 500 ML IV ONE (07:44)
[2017-09-08] MEDS ORDERED: IOPAMIDOL (ISOVUE 370) 100 ML BTL IV ONE (07:52)
[2017-09-08 07:55] VITALS: RESP 16; TEMP 97.9
--- NOTE | 2017-09-08 07:55 | CPEKG ---
Heart Rate: 61 RR Interval: 984 P-R Interval: 180 QRSD Interval: 98 QT Interval: 444 QTC Interval: 448 P [place]: 44 QRS [place]: 52 T Wave [place]: 52 EKG Severity - NORMAL ECG - EKG Impression: SINUS RHYTHM EKG Impression: FIRST DEGREE AVB IS NOTED IN THIS STUDY (COMPUTER MEASUREMENT IS INCORRECT) Electronically Signed By: Ehsan Ferris 09-Sep-2017 12:47:38
[2017-09-08 07:56] LABS: PLATELET COUNT 215 10^3/uL (150-400)
[2017-09-08 08:05] LABS: INR 1.04 (0.83-1.16); PROTIME(PATIENT) 13.8 SEC (12.0-15.0)
--- NOTE | 2017-09-08 10:14 | ASMTCMCOM ---
CM Note CM Note Notes: Patient presents to ER after a syncopal episode and fall/scalp laceration. History of CAD and carodid stenosis. Patient lives with his Christie who is present. Their daughter Michelle is at the bedside as well. Patient is current with [facility] which was arranged prior to discharge from an IP stay here last month. In addition, Seema Thibodeaux (family PCP) has arranged home medication checks for patient. Michelle lives close by and checks on her parents frequently. Neither the patient or his drive and rely on family and HH for errands, shopping, etc. Family does acknowledge that there are stairs in the home (3 levels), but mostly live on 2 levels. They feel confident navigating the stairs and explain that there are handrails on either side. Family declines need of further resources and assure me that they have and will utilize assistance for safety and support. I have LM for Dr. Thibodeaux re patients's ER visit Date Signed: 09/08/2017 10:12 AM Electronically Signed By:Shannan Javed RN
[2017-09-08] MEDS ORDERED: SKIN ADHESIVE (DERMABOND) 1 EACH TP ONE (10:15)
[2017-09-08 11:09] VITALS: BP 176/82; PULSE 62; O2SAT 97
== END 2017-09-08 10:39 | disposition home or self-care (01) ==
LOC: EDUNIT# → EDBD
PROC: 0HQ0XZZ Repair Scalp Skin, External Approach (ICD-10-PCS; principal; 2017-09-08)
DX: S01.01XA Laceration without foreign body of scalp, initial encounter (principal); E11.9 Type 2 diabetes mellitus without complications; I25.10 Atherosclerotic heart disease of native coronary artery without angina pectoris; E86.9 Volume depletion, unspecified; Z95.5 Presence of coronary angioplasty implant and graft; Z79.82 Long term (current) use of aspirin; Z79.84 Long term (current) use of oral hypoglycemic drugs; W01.198A Fall on same level from slipping, tripping and stumbling with subsequent striking against other object, initial encounter; Y92.002 Bathroom of unspecified non-institutional (private) residence as the place of occurrence of the external cause; Y99.8 Other external cause status; Y93.89 Activity, other specified
CPT/HCPCS: 12002; 70450; 70496; 70498; 93005; 99285; Q9967; 82947-QW

== ENCOUNTER → 2017-10-04 | Outpatient (CLI) | payer OTHER ==
[~2017-10-04] MED LIST: IOPAMIDOL (ISOVUE-370) 150 ML BTL IV ONE
== END ==
LOC: FIMAGING 09:30
DX: I70.213 Atherosclerosis of native arteries of extremities with intermittent claudication, bilateral legs (principal); K44.9 Diaphragmatic hernia without obstruction or gangrene
CPT/HCPCS: 75635; Q9967

== ENCOUNTER 2017-11-16 22:37 | Inpatient (IN) | payer OTHER ==
--- NOTE | 2017-11-16 22:43 | EDPHY ---
H & P Stated Complaint: weakness Time Seen by Provider: 11/16/17 22:41 HPI/ROS: HPI The patient presents with weakness which is generalized, unclear time of onset, though patient reports for 2 days. The patient is brought in by paramedics because of inability to get out of a seated position today. The paramedics report that 911 was called multiple times from the patient's household for lift assist over the last 1 day. The patient is normally able to walk a walker outside of the house and a 4 pronged cane inside of the house. He does have a history of dementia. He has not had any falls that he is aware of. He lives at home with his who according to the paramedics is not a good historian. Apparently, he did have an esophageal dilatation procedure performed today by Dr. Wright at [facility] for a Schatzki's ring. The patient says that he has been feeling lethargic for the last 2 days and has not been eating much. He denies any abdominal pain, chest pain, shortness of breath. He does report a mild cough. REVIEW OF SYSTEMS Constitutional: No fever, no chills. Eyes: No discharge. ENT: No sore throat. Cardiovascular: No chest pain, no palpitations. Respiratory: Positive for cough, no shortness of breath. Gastrointestinal: No abdominal pain, no vomiting. Genitourinary: No hematuria. Musculoskeletal: No back pain. Skin: No rashes. Neurological: No headache. PMHx: CAD status post stenting, History of carotid stenosis, history of CVA, history of diabetes, Pepper Thibodeaux is PMD Soc Hx: Lives at home with his PHYSICAL General Appearance: Alert, no distress Eyes: Pupils equal and round no pallor or injection ENT, Mouth: Mucous membranes dry Respiratory: There are no retractions, lungs are clear to auscultation Cardiovascular: Regular rate and rhythm Gastrointestinal: Abdomen is soft and non-tender, no masses, bowel sounds normal Neurological: A&O, moves all extremities Skin: Warm and dry, no rashes Musculoskeletal: Neck is supple non tender Extremities: symmetrical, full range of motion Psychiatric: There is no agitation present Source: Patient, EMS, Old records Exam Limitations: Physical impairment - Medical/Surgical History Hx Asthma: No Hx Chronic Respiratory Disease: No Hx Diabetes: Yes Hx Cardiac Disease: Yes Hx Renal Disease: No Hx Cirrhosis: No Hx Alcoholism: No Hx HIV/AIDS: No Hx Splenectomy or Spleen Trauma: No Other PMH: Hypertension, diabetes, coronary artery disease, asymptomatic right carotid artery stenosis, peripheral neuropathy, chronic bilateral lower extremity weakness, deconditioning, unsteady gait, intermittent peripheral vertigo - Social History Smoking Status: Never smoked Constitutional: Initial Vital Signs Temperature (C) 37.2 C 11/16/17 22:41 Heart Rate 75 11/16/17 22:41 Respiratory Rate 16 11/16/17 22:41 Blood Pressure 146/73 H 11/16/17 22:41 O2 Sat (%) 93 11/16/17 22:41 O2 Delivery Mode Room Air Allergies/Adverse Reactions: Penicillins Allergy (Unknown, Verified 02/26/13 18:54) Home Medications: Medication Instructions Recorded Aspirin EC [Aspirin EC 81 mg (*)] 81 mg PO DAILY 10/26/15 Metoprolol Succinate Xr [Toprol Xl 25 mg PO DAILY 10/26/15 25 mg (*)] metFORMIN HCL [Metformin HCl ER] 500 mg PO DAILY 10/26/15 Atorvastatin Calcium [Lipitor 40 40 mg PO DAILY 03/01/17 mg (*)] metFORMIN HCL [Metformin HCl ER] 1,000 mg PO HS 03/01/17 Acetaminophen [Tylenol 325mg (*)] 650 mg PO Q4HRS PRN tab 03/02/17 Medical Decision Making - Diagnostics EKG Interpretation: EKG: Complete interpretation has been separately recorded in the [facility] archive. Summary impression: Normal sinus rhythm Imaging Results: Imaging Impressions Chest X-Ray 11/16/17 22:40 Impression: Suspect left lower lobe pneumonia superimposed upon underlying airways disease.. Imaging: Discussed imaging studies w/ transmission line engineer Radiologist, I viewed and interpreted images myself Differential Diagnosis: This is an 87-year-old male with multiple medical problems including reported dementia, history of CAD, carotid stenosis, type 2 diabetes who presents from home brought in by ambulance for generalized weakness, unable to get out of a chair tonight. Per braid maker report, they have been called several times to his house in the last 1 day for lift assist. As the patient has a mild cough. He says he has felt lethargic for 2 days. Today, he did have an esophageal dilatation procedure performed for Schatzki's ring. Differential diagnosis includes electrolyte disturbance, dehydration, infections such as urinary tract infection or pneumonia, closed head injury, CVA , medication side effect. In the emergency department, I met the paramedics at the bedside to obtain their report. Patient was started on IV fluids. Labs were checked and revealed a leukocytosis, anemia, improved from last value checked several months ago, hyperglycemia, slight elevation in his bilirubin. Chest x-ray demonstrated likely pneumonia. The patient says he has been feeling lethargic for 2 days, symptoms preceded the GI procedure that he had. I suspect he could have a community-acquired pneumonia versus aspiration pneumonia. I plan to admit him to the hospitalist service and have consulted with Dr. Way. - Data Points Laboratory Results: Laboratory Results 11/17/17 00:00 11/17/17 00:00 11/17/17 11/17/17 11/16/17 00:00 00:00 22:45 WBC 14.39 10^3/uL H 10^3/uL (3.80-9.50) RBC 3.53 10^6/uL L 10^6/uL (4.40-6.38) Hgb 11.0 g/dL L g/dL (13.7-17.5) Hct 33.1 % L % (40.0-51.0) MCV 93.8 fL fL (81.5-99.8) MCH 31.2 pg pg (27.9-34.1) MCHC 33.2 g/dL g/dL (32.4-36.7) RDW 13.1 % % (11.5-15.2) Plt Count 245 10^3/uL 10^3/uL (150-400) MPV 10.8 fL fL (8.7-11.7) Neut % (Auto) 89.1 % H % (39.3-74.2) Lymph % (Auto) 6.1 % L % (15.0-45.0) [place] % (Auto) 4.4 % L % (4.5-13.0) Eos % (Auto) 0.0 % L % (0.6-7.6) Baso % (Auto) 0.1 % L % (0.3-1.7) Nucleat RBC Rel Count 0.0 % % (0.0-0.2) Absolute Neuts (auto) 12.81 10^3/uL H 10^3/uL (1.70-6.50) Absolute Lymphs (auto) 0.88 10^3/uL L 10^3/uL (1.00-3.00) Absolute Monos (auto) 0.63 10^3/uL 10^3/uL (0.30-0.80) Absolute Eos (auto) 0.00 10^3/uL L 10^3/uL (0.03-0.40) Absolute Basos (auto) 0.02 10^3/uL 10^3/uL (0.02-0.10) Absolute Nucleated RBC 0.00 10^3/uL 10^3/uL (0-0.01) Immature Gran % 0.3 % % (0.0-1.1) Immature Gran # 0.05 10^3/uL 10^3/uL (0.00-0.10) Sodium 142 mEq/L mEq/L 138 mEq/L mEq/L (135-145) (135-145) Potassium 4.3 mEq/L mEq/L 4.6 mEq/L mEq/L (3.3-5.0) (3.3-5.0) Chloride 107 mEq/L mEq/L 100 mEq/L mEq/L (97-110) (97-110) Carbon Dioxide 24 mEq/l mEq/l 24 mEq/l mEq/l (22-31) (22-31) Anion Gap 11 mEq/L mEq/L 14 mEq/L mEq/L (8-16) (8-16) BUN 25 mg/dL H mg/dL 23 mg/dL mg/dL (7-23) (7-23) Creatinine 0.9 mg/dL mg/dL 1.0 mg/dL mg/dL (0.7-1.3) (0.7-1.3) Estimated GFR > 60 > 60 Glucose 204 mg/dL H mg/dL 213 mg/dL H mg/dL (70-100) (70-100) Calcium 9.2 mg/dL mg/dL 9.4 mg/dL mg/dL (8.5-10.4) (8.5-10.4) Total Bilirubin 1.7 mg/dL H mg/dL 2.1 mg/dL H mg/dL (0.1-1.4) (0.1-1.4) Conjugated Bilirubin 0.5 mg/dL mg/dL (0.0-0.5) Unconjugated Bilirubin 1.6 mg/dL H mg/dL (0.0-1.1) AST 13 IU/L L IU/L 16 IU/L L IU/L (17-59) (17-59) ALT 20 IU/L L IU/L 22 IU/L IU/L (21-72) (21-72) Alkaline Phosphatase 76 IU/L IU/L 95 IU/L IU/L (38-126) (38-126) Total Protein 6.2 g/dL L g/dL 7.1 g/dL g/dL (6.3-8.2) (6.3-8.2) Albumin 3.3 g/dL L g/dL 4.0 g/dL g/dL (3.5-5.0) (3.5-5.0) Procalcitonin 0.59 ng/mL H ng/mL (0.02-0.10) 11/16/17 22:45 WBC 14.87 10^3/uL H 10^3/uL (3.80-9.50) RBC 3.98 10^6/uL L 10^6/uL (4.40-6.38) Hgb 12.4 g/dL L g/dL (13.7-17.5) Hct 37.2 % L % (40.0-51.0) MCV 93.5 fL fL (81.5-99.8) MCH 31.2 pg pg (27.9-34.1) MCHC 33.3 g/dL g/dL (32.4-36.7) RDW 13.1 % % (11.5-15.2) Plt Count 254 10^3/uL 10^3/uL (150-400) MPV 11.0 fL fL (8.7-11.7) Neut % (Auto) 89.6 % H % (39.3-74.2) Lymph % (Auto) 6.0 % L % (15.0-45.0) [place] % (Auto) 3.9 % L % (4.5-13.0) Eos % (Auto) 0.0 % L % (0.6-7.6) Baso % (Auto) 0.1 % L % (0.3-1.7) Nucleat RBC Rel Count 0.0 % % (0.0-0.2) Absolute Neuts (auto) 13.32 10^3/uL H 10^3/uL (1.70-6.50) Absolute Lymphs (auto) 0.89 10^3/uL L 10^3/uL (1.00-3.00) Absolute Monos (auto) 0.58 10^3/uL 10^3/uL (0.30-0.80) Absolute Eos (auto) 0.00 10^3/uL L 10^3/uL (0.03-0.40) Absolute Basos (auto) 0.02 10^3/uL 10^3/uL (0.02-0.10) Absolute Nucleated RBC 0.00 10^3/uL 10^3/uL (0-0.01) Immature Gran % 0.4 % % (0.0-1.1) Immature Gran # 0.06 10^3/uL 10^3/uL (0.00-0.10) Sodium Potassium Chloride Carbon Dioxide Anion Gap BUN Creatinine Estimated GFR Glucose Calcium Total Bilirubin Conjugated Bilirubin Unconjugated Bilirubin AST ALT Alkaline Phosphatase Total Protein Albumin Procalcitonin Medications Given: Discontinued Medications Azithromycin 500 mg/ Sodium (Chloride) 255 mls @ 255 mls/hr IV EDNOW ONE PRN Reason: Protocol Stop: 11/17/17 00:27 Last Admin: 11/17/17 00:16 Dose: 255 mls Ceftriaxone Sodium/Dextrose (Rocephin 1 Gm (Premix)) 50 mls @ 100 mls/hr IV EDNOW ONE PRN Reason: Protocol Stop: 11/16/17 23:57 Last Admin: 11/16/17 23:46 Dose: 50 mls Sodium Chloride (Ns) 1,000 mls @ 0 mls/hr IV EDNOW ONE; Wide Open PRN Reason: Protocol Stop: 11/16/17 23:29 Last Admin: 11/16/17 23:40 Dose: 1,000 mls Departure - Departure Disposition: [facility] Inpatient Acute Clinical Impression: Weakness Pneumonia Qualifiers: Pneumonia type: due to unspecified organism Laterality: left Lung location: lower lobe of lung Qualified Code(s): J18.1 - Lobar pneumonia, unspecified organism Leukocytosis Qualifiers: Leukocytosis type: unspecified Qualified Code(s): D72.829 - Elevated white blood cell count, unspecified Condition: Fair
--- NOTE | 2017-11-16 22:48 | CPEKG ---
Heart Rate: 76 RR Interval: 789 P-R Interval: 228 QRSD Interval: 90 QT Interval: 400 QTC Interval: 450 P Lawrence: 54 QRS Lawrence: 55 T Wave Lawrence: 77 EKG Severity - ABNORMAL ECG - EKG Impression: SINUS RHYTHM EKG Impression: FIRST DEGREE AV BLOCK EKG Impression: LOW VOLTAGE IN FRONTAL LEADS Electronically Signed By: Skylar Liz 17-Nov-2017 06:15:11
[2017-11-16 22:49] LABS: PLATELET COUNT 254 10^3/uL (150-400)
[2017-11-16] MEDS ORDERED: AZITHROMYCIN IV 500 MG in NS 250 ML IV ONE (23:28)
[2017-11-16] MEDS ORDERED: NS 1,000 ML IV ONE (23:28)
[2017-11-17] MEDS ORDERED: CLINDAMYCIN 600 MG/DEXTROSE 50 ML IV ONE (00:28)
[2017-11-17] MEDS ORDERED: ACETAMINOPHEN 325 MG TAB PO PRN (00:30)
[2017-11-17] MEDS ORDERED: ONDANSETRON DISINTEGRATING 4 MG TAB PO PRN (00:30)
[2017-11-17] MEDS ORDERED: ONDANSETRON 4 MG/2 ML VIAL IVP PRN (00:30)
[2017-11-17] MEDS ORDERED: D50W 25 GM/50 ML VIAL IVP PRN (00:32)
[2017-11-17 00:37] LABS: PLATELET COUNT 245 10^3/uL (150-400)
--- NOTE | 2017-11-17 00:57 | PDGENHP ---
History and Physical - Chief Complaint Weakness - History of Present Illness 87 yo M w/ hx of dementia, DM, and HTN p/w weakness and confusion. History is limited from patient as he is somewhat confused and no family are present for additional history. The patient tells me he has felt weak for a few days. He is not sure if he has been febrile. He denies chest pain and shortness of breath. He had a esophageal dilation earlier today. He was then unable to ambulate by himself so EMS brought him to the ED for evaluation. In the ED evaluation has been notable for mild leukocytosis and LLL pulmonary infiltrate. The remainder of his work-up is mostly unremarkable. History Information - Allergies/Home Medication List Allergies/Adverse Reactions: Penicillins Allergy (Unknown, Verified 02/26/13 18:54) Home Medications: Aspirin EC [Aspirin EC 81 mg (*)] 81 mg PO DAILY 10/26/15 [Last Taken 07/20/17] Metoprolol Succinate Xr [Toprol Xl 25 mg (*)] 25 mg PO DAILY 10/26/15 [Last Taken 07/20/17] metFORMIN HCL [Metformin HCl ER] 500 mg PO DAILY 10/26/15 [Last Taken 07/20/17] Atorvastatin Calcium [Lipitor 40 mg (*)] 40 mg PO DAILY 03/01/17 [Last Taken 12/28] metFORMIN HCL [Metformin HCl ER] 1,000 mg PO HS 03/01/17 [Last Taken 07/19/17] I have personally reviewed and updated: family history, medical history - Past Medical History Additional medical history: Carotid stenosis, severe, noted as 70-90% at the right carotid bulb in June of 2016, patient elected for nonoperative management with Dr. Jace Hayden at that time. Esophageal stricture. Diabetes mellitus type 2 with most recent hemoglobin A1c 8.3%. Coronary artery disease status post stenting 15 years ago - Surgical History Additional surgical history: esophageal balloon in 2013. Cardiac stent 15 years ago - Family History Additional family history: family history of esophageal cancer achalasia - Social History Smoking Status: Never smoked Additional social history: independent in his ADLs Review of Systems Review of Systems: ROS: 10pt was reviewed & negative except for what was stated in HPI & below Physical Exam Physical Exam: Temp Pulse Resp BP Pulse Ox 37.2 C 68 16 149/79 H 93 11/16/17 22:41 11/17/17 00:06 11/17/17 00:06 11/17/17 00:06 11/17/17 00:06 Constitutional: no apparent distress, chronically ill appearing Eyes: PERRL, EOMI Ears, Nose, Mouth, Throat: moist mucous membranes, no oral mucosal ulcers Cardiovascular: regular rate and rhythym, no murmur, rub, or gallop Respiratory: no respiratory distress, clear to auscultation Gastrointestinal: normoactive bowel sounds, soft, non-tender abdomen Skin: warm, normal color Musculoskeletal: full muscle strength, no muscle tenderness Neurologic: CN II-XII Intact, other (A&Ox1) Psychiatric: interacting appropriately, not anxious Lab Data & Imaging Review 11/17/17 00:00 11/16/17 22:45 WBC 14.39 10^3/uL (3.80-9.50) H 11/17/17 00:00 RBC 3.53 10^6/uL (4.40-6.38) L 11/17/17 00:00 Hgb 11.0 g/dL (13.7-17.5) L 11/17/17 00:00 Hct 33.1 % (40.0-51.0) L 11/17/17 00:00 MCV 93.8 fL (81.5-99.8) 11/17/17 00:00 MCH 31.2 pg (27.9-34.1) 11/17/17 00:00 MCHC 33.2 g/dL (32.4-36.7) 11/17/17 00:00 RDW 13.1 % (11.5-15.2) 11/17/17 00:00 Plt Count 245 10^3/uL (150-400) 11/17/17 00:00 MPV 10.8 fL (8.7-11.7) 11/17/17 00:00 Neut % (Auto) 89.1 % (39.3-74.2) H 11/17/17 00:00 Lymph % (Auto) 6.1 % (15.0-45.0) L 11/17/17 00:00 [place] % (Auto) 4.4 % (4.5-13.0) L 11/17/17 00:00 Eos % (Auto) 0.0 % (0.6-7.6) L 11/17/17 00:00 Baso % (Auto) 0.1 % (0.3-1.7) L 11/17/17 00:00 Nucleat RBC Rel Count 0.0 % (0.0-0.2) 11/17/17 00:00 Absolute Neuts (auto) 12.81 10^3/uL (1.70-6.50) H 11/17/17 00:00 Absolute Lymphs (auto) 0.88 10^3/uL (1.00-3.00) L 11/17/17 00:00 Absolute Monos (auto) 0.63 10^3/uL (0.30-0.80) 11/17/17 00:00 Absolute Eos (auto) 0.00 10^3/uL (0.03-0.40) L 11/17/17 00:00 Absolute Basos (auto) 0.02 10^3/uL (0.02-0.10) 11/17/17 00:00 Absolute Nucleated RBC 0.00 10^3/uL (0-0.01) 11/17/17 00:00 Immature Gran % 0.3 % (0.0-1.1) 11/17/17 00:00 Immature Gran # 0.05 10^3/uL (0.00-0.10) 11/17/17 00:00 Sodium 138 mEq/L (135-145) 11/16/17 22:45 Potassium 4.6 mEq/L (3.3-5.0) 11/16/17 22:45 Chloride 100 mEq/L (97-110) 11/16/17 22:45 Carbon Dioxide 24 mEq/l (22-31) 11/16/17 22:45 Anion Gap 14 mEq/L (8-16) 11/16/17 22:45 BUN 23 mg/dL (7-23) 11/16/17 22:45 Creatinine 1.0 mg/dL (0.7-1.3) 11/16/17 22:45 Estimated GFR > 60 11/16/17 22:45 Glucose 213 mg/dL (70-100) H 11/16/17 22:45 Calcium 9.4 mg/dL (8.5-10.4) 11/16/17 22:45 Total Bilirubin 2.1 mg/dL (0.1-1.4) H 11/16/17 22:45 Conjugated Bilirubin 0.5 mg/dL (0.0-0.5) 11/16/17 22:45 Unconjugated Bilirubin 1.6 mg/dL (0.0-1.1) H 11/16/17 22:45 AST 16 IU/L (17-59) L 11/16/17 22:45 ALT 22 IU/L (21-72) 11/16/17 22:45 Alkaline Phosphatase 95 IU/L (38-126) 11/16/17 22:45 Total Protein 7.1 g/dL (6.3-8.2) 11/16/17 22:45 Albumin 4.0 g/dL (3.5-5.0) 11/16/17 22:45 Imaging Review: Imaging Impressions Chest X-Ray 11/16/17 22:40 Impression: Suspect left lower lobe pneumonia superimposed upon underlying airways disease.. Visualized and Interpreted Chest x-ray results: Yes Chest X-Ray results: infiltrate (?LLL) Visualized and Interpreted EKG results: Yes EKG Interpretation: Positive for: normal sinsus rhythm Assessment & Plan Assessment: 87 yo M w/ dementia, DM, and HTN presents with weakness and confusion, possibly due to pneumonia. Plan: 1. Suspected LLL pneumonia - Patient presenting with fatigue and leukocytosis, possible LLL infiltrate on CXR(personally interpreted). Diagnosis not certain noting patient afebrile, on RA, and denies SOB. - CTX/Azithromycin for now - Blood cultures, procalcitonin ordered - Discussed with Dr. Liz 2. Weakness, AMS - Patient has felt weak for a few days; this worsened after esophageal dilation on day of admission. This is possibly related to above but patient has a poor baseline, unclear how far off of this he is. - UA to complete infectious work-up - PT/OT evaluations 3. DM - On metformin as outpatient, will manage with SSI while inpatient. 4. Dementia - This has been discussed during previous visits, I reviewed D/C summary by Lauren Pitt for most recent hospitalization. Unclear how much longer he can continue to live at home with his , who is also demented. - PT/OT evaluations Diet - Regular Code - Full Ppx - SCDs Dispo - Admit under observation status
[2017-11-17] MEDS: AZITHROMYCIN 250 MG TAB PO SCH (08:21)
[2017-11-17] MEDS: INSULIN LISPRO 100 UNIT/ML SC SCH ×3 (08:21→18:46)
[2017-11-17] MEDS: ASPIRIN EC 81 MG TAB PO SCH (10:02)
[2017-11-17] MEDS: CHOLECALCIFEROL VIT D3 1,000 UNITS TAB PO SCH (10:02)
[2017-11-17] MEDS: ATORVASTATIN CALCIUM 40 MG TAB PO SCH (10:02)
[2017-11-17] MEDS: CYANO/VITAMIN B12 1000 MCG TAB PO SCH (10:02)
--- NOTE | 2017-11-17 11:39 | HOSPPROG ---
Hospitalist Progress Note Assessment/Plan: 87 yo M with PMH of dementia, CAD, DM presenting with increased weakness and confusion found to be increasingly confused and weak likely 2/2 PNA # LLL pna: noted on personal review of cxr, not meeting sepsis criteria on admission but wbc elevated as well as procalcitonin. Blood cultures pending, respiratory panel pcr pending, started on ctx/azithro for now and clinically improving # acute toxic metabolic encephalopathy: related to pna as above with underlying dementia complicating the picture. Mental status has improved and patient appears to be near baseline currently # weakness: at baseline patient is independent in ADLs, will have pt/ot work with patient and determine if this is currently appropriate # dementia: relatively advanced apparently, patient is oriented to self but otherwise disoriented currently, ASSEMBLY REPAIRER for cog eval # DM: with last A1c of 7.4, sugars mildly elevated since admission, holding metformin given limited po currently, will start SSI # CAD: continue op mgmt, no complaints of chest pain currently # esophageal stricture: ASSEMBLY REPAIRER to eval as above # IP status, will require > 48 hours stay for eval/mgmt of above Patient new to my care. Old records reviewed/summarized as above. Subjective: no significant overnight events, patient states he slept/ate well Objective: Vital Signs Temp Pulse Resp BP Pulse Ox 36.8 C 73 18 166/95 H 95 11/17/17 08:06 11/17/17 08:06 11/17/17 08:06 11/17/17 08:06 11/17/17 08:06 11/16/17 11/17/17 11/18/17 05:59 05:59 05:59 Intake Total 1225 420 Balance 1225 420 elderly awake alert anicteric op clear rrr no mrg distant cta with lll crackles soft nt nd no cce warm dry well perfused oriented to self ICD10 Worksheet Patient Problems: Problems Problem Status Onset CVA, old, facial weakness Acute Altered mental status, unspecified Acute Weakness Acute Pneumonia Acute Leukocytosis Acute
[2017-11-17] MEDS ORDERED: D50W 25 GM/50 ML SYR IVP PRN (11:43)
[2017-11-17] MEDS: METOPROLOL SUCCINATE XR 25 MG TAB PO SCH (19:57)
[2017-11-18] MEDS: INSULIN LISPRO 100 UNIT/ML SC SCH ×3 (09:52→18:33)
[2017-11-18] MEDS: AZITHROMYCIN 250 MG TAB PO SCH (10:13)
[2017-11-18] MEDS: CHOLECALCIFEROL VIT D3 1,000 UNITS TAB PO SCH (10:14)
[2017-11-18] MEDS: ASPIRIN EC 81 MG TAB PO SCH (10:14)
[2017-11-18] MEDS: CYANO/VITAMIN B12 1000 MCG TAB PO SCH (10:14)
[2017-11-18] MEDS: ATORVASTATIN CALCIUM 40 MG TAB PO SCH (10:14)
--- NOTE | 2017-11-18 11:48 | HOSPPROG ---
Hospitalist Progress Note Assessment/Plan: 87 yo M with PMH of dementia, CAD, DM presenting with increased weakness and confusion found to be increasingly confused and weak likely 2/2 PNA # LLL pna: noted on personal review of cxr, not meeting sepsis criteria on admission but wbc elevated as well as procalcitonin. Blood cultures with ngtd, respiratory panel pcr negative, started on ctx/azithro and clinically improved significantly. Will complete 5 days of azithromycin. # acute toxic metabolic encephalopathy: related to pna as above with underlying dementia complicating the picture. Mental status seems to be waxing and waning with some concerns of sundowning and delirium likely contributing--today patient talking about things that happened in the night that were likely hallucinations, clearly does not know where he is etc. WELT TRIMMING MACHINE OPERATOR to do cog eval. Working on determining if he needs placement. # weakness: at baseline patient is independent in ADLs, patient has been ambulating reasonably well but very confused as above and may require placement as below # dementia: relatively advanced apparently, patient is oriented to self but otherwise disoriented currently and evidence of delirium as above # DM: with last A1c of 7.4, sugars mildly elevated since admission, holding metformin given limited po currently, will start SSI # CAD: continue op mgmt, no complaints of chest pain currently # esophageal stricture: WELT TRIMMING MACHINE OPERATOR to eval as above # IP status, will require > 48 hours stay for eval/mgmt of above Care plan reviewed with patients family present at bedside Direct face to face time spent with patient and family from [phone] and from [phone] in review of above plans as well as discharge planning Subjective: no significant overnight events, patient quite confused feels there were people moving furniture in the night, perhaps they were there to kill someone, he isn't sure Objective: Vital Signs Temp Pulse Resp BP Pulse Ox 36.4 C 64 18 161/88 H 92 11/18/17 07:36 11/18/17 07:36 11/18/17 07:36 11/18/17 07:36 11/18/17 07:36 Microbiology 11/17/17 13:40 Respiratory Panel (PCR) - Final Nasal, Sinus - Swab No Organism Detected 11/17/17 12:48 Respiratory Panel (PCR) - Final Nasal, Sinus - Swab 11/17/17 11/18/17 11/19/17 05:59 05:59 05:59 Intake Total 1225 1050 Output Total 350 Balance 1225 700 elderly awake alert anicteric op clear rrr no mrg distant cta with lll crackles soft nt nd no cce warm dry well perfused oriented to self ICD10 Worksheet Patient Problems: Problems Problem Status Onset CVA, old, facial weakness Acute Altered mental status, unspecified Acute Weakness Acute Pneumonia Acute Leukocytosis Acute
--- NOTE | 2017-11-18 12:27 | ASMTCMCOM ---
CM Note CM Note Notes: Pt with hx of dementia admitted for PNA. met with pt, his and dtr. Plan is for rehab at [facility]. they rpefer a [facility] facility. [facility] cannot take so they are interested in [facility]. [facility] faxed. Discussed with pt's dtr and that pt not safe to return home w/o extra help after SNF. They will consider a memory care ass't living. Also gave them a pvt duuty list. PASRR completed. CM to follow. Date Signed: 11/18/2017 12:27 PM Electronically Signed By:Yasmine Jerome LCSW
[2017-11-18] MEDS: ENOXAPARIN 40 MG/0.4 ML SYR SC SCH (12:34)
--- NOTE | 2017-11-18 13:53 | PDMN ---
Medical Necessity Medical necessity: Change to IP, as of 11/18/17, per MD; est los >2 mn for ongoing management of LLL pneumonia w/acute toxic metabolic encephalopathy & weakness; admit for further monitoring, therapies & dc planning; comorbid advanced age, dementia, CAD, diabetes, esophageal stricture; per progress note & order 11/18/17
--- NOTE | 2017-11-18 14:30 | ASMTCMCOM ---
CM Note CM Note Notes: Pt and his , Christie, have a pvt case technician who requested [facility] as pt's 1st choice. They are reviewing. CM to follow. Date Signed: 11/18/2017 02:30 PM Electronically Signed By:Yasmine Jerome LCSW
[2017-11-18] MEDS: METOPROLOL SUCCINATE XR 25 MG TAB PO SCH (21:13)
[2017-11-19] MEDS: ENOXAPARIN 40 MG/0.4 ML SYR SC SCH (10:05)
[2017-11-19] MEDS: ATORVASTATIN CALCIUM 40 MG TAB PO SCH (10:05)
[2017-11-19] MEDS: CHOLECALCIFEROL VIT D3 1,000 UNITS TAB PO SCH (10:05)
[2017-11-19] MEDS: AZITHROMYCIN 250 MG TAB PO SCH (10:05)
[2017-11-19] MEDS: hydrALAZINE 20 MG/ML VIAL IVP PRN (10:05)
[2017-11-19] MEDS: ASPIRIN EC 81 MG TAB PO SCH (10:06)
[2017-11-19] MEDS: INSULIN LISPRO 100 UNIT/ML SC SCH ×3 (10:06→17:24)
[2017-11-19] MEDS: CYANO/VITAMIN B12 1000 MCG TAB PO SCH (10:06)
--- NOTE | 2017-11-19 13:10 | HOSPPROG ---
Hospitalist Progress Note Assessment/Plan: 87 yo M with PMH of dementia, CAD, DM presenting with increased weakness and confusion found to be increasingly confused and weak likely 2/2 PNA # LLL pna: noted on personal review of cxr, not meeting sepsis criteria on admission but wbc elevated as well as procalcitonin. Blood cultures with ngtd, respiratory panel pcr negative, started on ctx/azithro and clinically improved significantly. Will complete 5 days of azithromycin. # acute toxic metabolic encephalopathy: related to pna as above with underlying dementia complicating the picture. Mental status seems to be waxing and waning with some concerns of sundowning and delirium likely contributing. # weakness: at baseline patient is independent in ADLs, patient has been ambulating reasonably well but weaker than his baseline and requiring assist to ambulate safely. Recommending dc to SNF. 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 # IP status, will require > 48 hours stay for eval/mgmt of above DC to SNF likely on Tuesday Subjective: no significant overnight events, patient somnolent today but more oriented Objective: Vital Signs Temp Pulse Resp BP Pulse Ox 36.3 C 70 17 156/86 H 93 11/19/17 09:30 11/19/17 09:30 11/19/17 09:30 11/19/17 11:47 11/19/17 09:30 11/18/17 11/19/17 11/20/17 05:59 05:59 05:59 Intake Total 700 Output Total 350 75 Balance 350 -75 elderly awake alert anicteric op clear rrr no mrg distant cta with lll crackles soft nt nd no cce warm dry well perfused oriented to self ICD10 Worksheet Patient Problems: Problems Problem Status Onset Leukocytosis Acute Pneumonia Acute Weakness Acute Altered mental status, unspecified Acute CVA, old, facial weakness Acute
[2017-11-19] MEDS: METOPROLOL SUCCINATE XR 25 MG TAB PO SCH (21:33)
[2017-11-20] MEDS: hydrALAZINE 20 MG/ML VIAL IVP PRN ×2 (05:11→08:37)
[2017-11-20] MEDS: ENOXAPARIN 40 MG/0.4 ML SYR SC SCH (08:37)
[2017-11-20] MEDS: AZITHROMYCIN 250 MG TAB PO SCH (08:38)
[2017-11-20] MEDS: CHOLECALCIFEROL VIT D3 1,000 UNITS TAB PO SCH (08:38)
[2017-11-20] MEDS: ASPIRIN EC 81 MG TAB PO SCH (08:38)
[2017-11-20] MEDS: ATORVASTATIN CALCIUM 40 MG TAB PO SCH (08:38)
[2017-11-20] MEDS: CYANO/VITAMIN B12 1000 MCG TAB PO SCH (08:38)
[2017-11-20] MEDS: INSULIN LISPRO 100 UNIT/ML SC SCH ×3 (08:38→18:40)
[2017-11-20] MEDS ORDERED: METOPROLOL SUCCINATE XR 25 MG TAB PO SCH (10:15)
--- NOTE | 2017-11-20 10:21 | HOSPPROG ---
Hospitalist Progress Note Assessment/Plan: 87 yo M with PMH of dementia, CAD, DM presenting with increased weakness and confusion found to be increasingly confused and weak likely 2/2 PNA # LLL pna: noted on personal review of cxr, not meeting sepsis criteria on admission but wbc elevated as well as procalcitonin. Blood cultures with ngtd, respiratory panel pcr negative, started on ctx/azithro and clinically improved significantly. Will complete 5 days of azithromycin. * will recheck cxr and see if its still there # acute toxic metabolic encephalopathy: related to pna as above with underlying dementia complicating the picture. Mental status seems to be waxing and waning with some concerns of sundowning and delirium likely contributing. # weakness: at baseline patient is independent in ADLs, patient has been ambulating reasonably well but weaker than his baseline and requiring assist to ambulate safely. Recommending dc to SNF. 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 minimal cough Objective: Vital Signs Temp Pulse Resp BP Pulse Ox 36.6 C 79 16 207/106 H 94 11/20/17 07:50 11/20/17 07:50 11/20/17 07:50 11/20/17 08:37 11/20/17 07:50 11/19/17 11/20/17 11/21/17 05:59 05:59 05:59 Intake Total 700 575 Output Total 350 225 Balance 350 350 - Physical Exam Constitutional: no apparent distress, appears nourished, not in pain Eyes: anicteric sclera, EOMI Ears, Nose, Mouth, Throat: moist mucous membranes, hearing normal Cardiovascular: regular rate and rhythym, no murmur, rub, or gallop Respiratory: no respiratory distress, no rales or rhonchi, clear to auscultation Gastrointestinal: normoactive bowel sounds, soft, non-tender abdomen, no palpable masses Skin: warm Neurologic: other (alert conversive) Psychiatric: interacting appropriately, not anxious, not encephalopathic ICD10 Worksheet Patient Problems: Problems Problem Status Onset Leukocytosis Acute Pneumonia Acute Weakness Acute Altered mental status, unspecified Acute CVA, old, facial weakness Acute
[2017-11-20] MEDS: amLODIPine BESYLATE 5 MG TAB PO SCH (12:32)
[2017-11-21 04:39] LABS: PLATELET COUNT 226 10^3/uL (150-400)
[2017-11-21] MEDS: AZITHROMYCIN 250 MG TAB PO SCH (09:14)
[2017-11-21] MEDS: ASPIRIN EC 81 MG TAB PO SCH (09:14)
[2017-11-21] MEDS: ATORVASTATIN CALCIUM 40 MG TAB PO SCH (09:14)
[2017-11-21] MEDS: CYANO/VITAMIN B12 1000 MCG TAB PO SCH (09:14)
[2017-11-21] MEDS: CHOLECALCIFEROL VIT D3 1,000 UNITS TAB PO SCH (09:14)
[2017-11-21] MEDS: ENOXAPARIN 40 MG/0.4 ML SYR SC SCH (09:14)
[2017-11-21] MEDS: amLODIPine BESYLATE 5 MG TAB PO SCH (09:14)
[2017-11-21] MEDS ORDERED: metFORMIN SR 500 MG TAB PO SCH ×2 (09:45→18:00)
[2017-11-21] MEDS: INSULIN LISPRO 100 UNIT/ML SC SCH ×2 (12:25→14:48)
[2017-11-21 12:33] VITALS: BP 117/61
--- NOTE | 2017-11-21 13:34 | PDIAF ---
- Diagnosis Diagnosis: pna Code Status: Full Code - Medication Management Discharge Medications: Medications to Continue on Transfer Aspirin EC [Aspirin EC 81 mg (*)] 81 mg PO DAILY 10/26/15 [Last Taken 11/16/17] metFORMIN HCL [Metformin HCl ER] 500 mg PO DAILY 10/26/15 [Last Taken 11/16/17] Atorvastatin Calcium [Lipitor 40 mg (*)] 40 mg PO DAILY 03/01/17 [Last Taken 11/28] metFORMIN HCL [Metformin HCl ER] 1,000 mg PO HS 03/01/17 [Last Taken 11/15/17] Acetaminophen [Tylenol 325mg (*)] 650 mg PO Q4HRS PRN tab 03/02/17 [Last Taken Unknown] Cholecalciferol Vit D3 [Vitamin D3 (*)] 1,000 units PO DAILY 11/17/17 [Last Taken 11/16/17] Cyanocobalamin [Vitamin B12 (*)] 1,000 mcg PO DAILY 11/17/17 [Last Taken ] Azithromycin [Zithromax] 250 mg PO DAILY #1 tab 11/21/17 [Last Taken Unknown] Metoprolol Succinate Xr [Toprol Xl 25 mg (*)] 50 mg PO HS #1 tab 11/21/17 [Last Taken Unknown] amLODIPine BESYLATE [Norvasc 5 mg (*)] 5 mg PO DAILY #1 tab 11/21/17 [Last Taken Unknown] Retirement Antibiotics: Augmentin 250 mg po daily through November 22 Discharge Medications: Refer to the Discharge Home Medication list for PRN reason. - Orders Services needed: Physical Therapy, Occupational Therapy Isolation Type: None Diet Texture: Regular Texture Diet, Thin Liquids, Meds Whole w/Liquids - Follow Up Care Current Providers and Referrals: Patient,NotPresent [Unknown] - As per Instructions
--- NOTE | 2017-11-21 13:37 | PDIAF ---
- Diagnosis Diagnosis: pna Code Status: Full Code - Medication Management Discharge Medications: Medications to Continue on Transfer Aspirin EC [Aspirin EC 81 mg (*)] 81 mg PO DAILY 10/26/15 [Last Taken 11/16/17] metFORMIN HCL [Metformin HCl ER] 500 mg PO DAILY 10/26/15 [Last Taken 11/16/17] Atorvastatin Calcium [Lipitor 40 mg (*)] 40 mg PO DAILY 03/01/17 [Last Taken 11/28] metFORMIN HCL [Metformin HCl ER] 1,000 mg PO HS 03/01/17 [Last Taken 11/15/17] Acetaminophen [Tylenol 325mg (*)] 650 mg PO Q4HRS PRN tab 03/02/17 [Last Taken Unknown] Cholecalciferol Vit D3 [Vitamin D3 (*)] 1,000 units PO DAILY 11/17/17 [Last Taken 11/16/17] Cyanocobalamin [Vitamin B12 (*)] 1,000 mcg PO DAILY 11/17/17 [Last Taken ] Azithromycin [Zithromax] 250 mg PO DAILY #1 tab 11/21/17 [Last Taken Unknown] Metoprolol Succinate Xr [Toprol Xl 25 mg (*)] 50 mg PO HS #1 tab 11/21/17 [Last Taken Unknown] Rn Intake Antibiotics: Augmentin 250 mg po daily through November 22 Discharge Medications: Refer to the Discharge Home Medication list for PRN reason. - Orders Services needed: Physical Therapy, Occupational Therapy Isolation Type: None Diet Texture: Regular Texture Diet, Thin Liquids, Meds Whole w/Liquids - Follow Up Care Current Providers and Referrals: Patient,NotPresent [Unknown] - As per Instructions
--- NOTE | 2017-11-21 13:48 | ASMTCMCOM ---
CM Note CM Note Notes: Chart reviewed. Met with patient, and daughter who report daughter has toured [facility] and prefers that environment over others. They would like the patient to go there for rehab. MD aware and patient medically cleared for discharge, final orders faxed to Dania. Awaiting her to return my call. CM available should other needs arise. Plan: To [facility] Date Signed: 11/21/2017 01:47 PM Electronically Signed By:Carli Forrester RN
--- NOTE | 2017-11-21 14:12 | GDS ---
[f rep st] DISCHARGE SUMMARY DISCHARGE DIAGNOSES: 1. Lower lobe pneumonia versus bronchitis. 2. Hypertension, uncontrolled. 3. Weakness and confusion due to above. 4. Dementia. 5. Type 2 diabetes. 6. Coronary artery disease. HISTORY: The patient is an 87-year-old male who presented with weakness and confusion. HOSPITAL COURSE: The patient did have a left lower lobe infiltrate on chest x-ray; did also have an elevated white blood cell count. He was started on antibiotics. His confusion improved, as well as his is leukocytosis. The patient also had elevated blood pressures. His metoprolol was increased to 50 mg nightly and Norvasc 5 mg daily was added. Blood pressure seems to be a little bit on the low side currently, and thus we will not continue the Norvasc, but continue the higher dose of metoprolol . The patient has been struggling at home and his family are thinking about [facility] facility placement. He will be transferred to [facility], at least initially for rehab. DISCHARGE MEDICATIONS: Continue home medicines, although metoprolol will be increased to 50 mg at [facility]. Azithromycin will continue 1 more day till 11/22/2017. TIME SPENT: Greater than 30 minutes was spent on discharge. /[id number]/MODL
--- NOTE | 2017-11-21 16:02 | ASDISCHSUM ---
Discharge Information Plan Status:SNF Medically Cleared to Leave:11/21/2017 Discharge Date:11/21/2017 03:57 PM CM D/C Disposition:Jail Facility ADT D/C Disposition:Jail Facility Projected Discharge Date:11/21/2017 11:00 AM Transportation at D/C:Wheelchair Van Discharge Delay Reason: Follow-Up Date:11/21/2017 11:00 AM Discharge Slot: Final Diagnosis: Placement Information Referral Type:*Long Term/SNF Referral ID:[id number] Provider Name:[facility] Address 1:[address] Address 2: City:[place] Selection Factors: State:[place] Patient Contact Information Contact Name:MARCOS Relationship: Address:[address] Work Phone: [facility]:[place] Alternate Phone: State/Zip Code:[place] [address] Email: Financial Information Financial Class:Medicare Primary Plan Desc:MEDICARE INPATIENT Primary Plan Number:[id number] Secondary Plan Desc:MELISSA PPO Secondary Plan Number:[id number] Assessment Information [facility] Progress Note CM Note CM Note Notes: Pt with hx of dementia admitted for PNA. met with pt, his and dtr. Plan is for rehab at [facility]. they rpefer a [facility]. [facility] cannot take so they are interested in [facility]. Referaal faxed. Discussed with pt's dtr and that pt not safe to return home w/o extra help after SNF. They will consider a memory care ass't living. Also gave them a pvt duuty list. ELISE completed. CM to follow. Date Signed: 11/18/2017 12:27 PM Electronically Signed By:Yasmine Jerome LCSW [facility] CM Progress Note CM Note CM Note Notes: Pt and his , Christie, have a pvt block and case maker who requested [facility] as pt's 1st choice. They are reviewing. CM to follow. Date Signed: 11/18/2017 02:30 PM Electronically Signed By:Yasmine Jerome LCSW [facility] CM Progress Note CM Note CM Note Notes: Chart reviewed. Met with patient, and daughter who report daughter has toured [facility] and prefers that environment over others. They would like the patient to go there for rehab. MD aware and patient medically cleared for discharge, final orders faxed to Dania. Awaiting her to return my call. CM available should other needs arise. Plan: To [facility] Date Signed: 11/21/2017 01:47 PM Electronically Signed By:Carli Forrester RN Intervention Information Intervention Type:*MORGAN-Signed Date of Service:11/17/2017 02:08 PM Patient Type:Observation Staff Member:Nancy Clemons Hours: Discipline: Severity: Comment: Intervention Type:*YOKASTA-Signed Date of Service:11/21/2017 01:55 PM Patient Type:Inpatient Staff Member:Nancy Clemons Hours: Discipline: Severity: Comment:
--- NOTE | 2017-11-24 12:30 | PQFORM ---
PHYSICIAN QUERY FORM Needs Your Response This query form is being sent to you to assure this patient record is coded properly. 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 Grimes, In reviewing this patients medical record it is note that the patient held the diagnosis of 'Toxic metabolic encephalopathy.' Patient presented with weakness and confusion. In the Hospitalist progress notes dated 11/17-11/20 patient was diagnosed with 'Toxic metabolic encephalopathy, related to the Pneumonia.' Noted in the 11/18 Medical necessity note patient was diagnosed with 'pneumonia w/ acute toxic metabolic encephalopathy.' After study, should the diagnosis of 'Toxic metabolic encephalopathy' be included in the discharge summary? ___x__ Yes No Unable to determine Other more appropriate diagnosis (please specify) Thank you CHRIS Black [facility]/Coding Dept. [phone] INSTRUCTIONS FOR RESPONSE: Answer question by clicking on the "Edit Document" button. Move cursor to area below the stars. When complete, hit "Save." Click on the "Sign" button, then click "Sign" again. Type in your PIN and hit "Enter." MTDD
== END 2017-11-21 15:57 | DRG 193 ==
LOC: EDUNIT# → INTOOBSV 11-17 00:30 → F1N 11-17 01:10 → OBSVTOIN 11-18 11:41 → F1N 11-20 19:46
PROVIDERS: ADMIT Student in an Organized Health Care Education/Training Program; ATTEND Student in an Organized Health Care Education/Training Program
DX: J18.1 Lobar pneumonia, unspecified organism (principal); G92 Toxic encephalopathy; E86.9 Volume depletion, unspecified; I10 Essential (primary) hypertension; J40 Bronchitis, not specified as acute or chronic; F03.90 Unspecified dementia, unspecified severity, without behavioral disturbance, psychotic disturbance, mood disturbance, and anxiety; E11.9 Type 2 diabetes mellitus without complications; I25.10 Atherosclerotic heart disease of native coronary artery without angina pectoris; Z79.84 Long term (current) use of oral hypoglycemic drugs; Z88.0 Allergy status to penicillin
CPT/HCPCS: 92523-GN; 92610-GN; 96365; 97116-GP; 97161-GP; 97165-GO; 97535-GO; G0378; G8978-GP-CK; G8979-GP-CJ; G8987-GO-CI; G8988-GO-CI; G8996-GN-CI; G8997-GN-CI; G8998-GN-CI; G9168-GN-CK; G9169-GN-CK; G9170-GN-CK; J0360; J0456; J0696; J1650; J1815

== ENCOUNTER 2017-11-30 09:15 | Emergency (ER) | payer OTHER ==
--- NOTE | 2017-11-30 09:16 | EDPHY ---
HPI/HX/ROS/PE/MDM Narrative: CHIEF COMPLAINT: Fall, skin tears, LTA+ HISTORY OF PRESENT ILLNESS: The patient is an 86 y/o male with a history of CAD status post stenting, CVA ( 3 months ago with unknown deficits), and diabetes arriving via EMS in a c- collar as a limited trauma plus alert after falling down 4 wooden steps outside of his house. Two days ago the patient was discharged from this hospital after being admitted for pneumonia. Today the patient became dizzy and fell forward down the stairs outside of his house. The patient believes he hit his head on some rocks, but denies loss of copiousness. When EMS arrived, they noticed that the patient had multiple skin tears, as well as midline thoracic spine tenderness. EMS reports that the patient has been falling more recently. While en route to the hospital the patient had a blood glucose level of 198. The patient is currently complaining of mid back pain. He does take baby aspirin daily. No fever, chills, chest pain, shortness of breath, palpitations, vomiting, diarrhea, urinary complaints, headache. REVIEW OF SYSTEMS: Aside from elements discussed in the HPI, a comprehensive 10-point review of systems was reviewed and is negative. PAST MEDICAL HISTORY: CAD status post stenting, carotid stenosis, CVA, diabetes , Pepper Thibodeaux is PMD SOCIAL HISTORY: Lives at home with his in [place], retired VITAL SIGNS: Reviewed by me GENERAL: Elderly, frail, resting comfortably in no respiratory distress. HEENT: Forehead abrasion. Eyes: No icterus, no injection. Mouth: moist mucous membranes. No erythema or lesions. Neck: C-collar in place, non-tender, supple with no adenopathy. LUNGS: Clear to auscultation bilaterally, no wheezes, rhonchi or rales. CARDIAC: Chest wall abrasion. Regular rate and rhythm, no rubs, murmurs or gallops. ABDOMEN: Old bruise on upper abdomen. Soft, nontender, nondistended, bowel sounds normal. BACK: Abrasion over lower T spine, T-L junction tenderness to palpation. No CVA tenderness. EXTREMITIES: Significant skin tears on forearms, left worse than right. No edema. Range of motion is normal throughout. NEURO: Alert and oriented, grossly nonfocal, right-sided facial droop (unsure if acute). SKIN: Warm and dry, no rash. PSYCHIATRIC: Normal mentation, no agitation. Portions of this note were transcribed by a medical insurance claims specialist. I personally performed a history, physical exam, medical decision making, and confirmed accuracy of information the transcribed note. ED Course: The patient is an 86 y/o male with a history of CAD status post stenting, CVA ( 3 months ago with unknown deficits), and diabetes arriving via EMS in a c- collar as a limited trauma plus alert after falling down 4 wooden steps outside of his house. On exam the patient has significant skin tears on his forearms ( left worse than right), abrasions on his forehead, chest wall, and over his lower T-spine. The patient also has tenderness to palpation over the T-L spine junction. Labs, EKG, chest x-ray, and CT's (head, cervical, thoracic, and lumbar spine ordered). 0913: I met EMS upon arrival 1015: 12-LEAD EKG: Please see the full report in [facility]. My interpretation: Sinus rhythm with a rate of 61, ventricular premature complex, first degree AV block. 1030: Spoke with radiologist, patient has negative imaging findings. Medically patient has no injuries requiring admission or further evaluation. Long discussions held between family and case management to assess patients safety at home. Please see their notes. 1153: Reassessed patient and discussed imaging and laboratory results. I have advised that he follows up with his home health nurse as well as the wound care clinic. Case management has talked to the patient about home health care and assisted living facilities. Return precautions provided; patient is comfortable with this plan. MDM: Differential diagnosis of this patients injury was considered including but not limited to intracranial injury, long bone and pelvic bone fracture, spinal injury, intrathoracic injury, extremity injury, intra-abdominal injury, lacerations, abrasions, and contusions. - Data Points Imaging Results: CXR Impression: No acute pulmonary disease. Dictated By: Yomi Gusman MD CT T and L spine: Impression: 1. No evidence of acute fracture associated with the thoracic and lumbar spines. 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 3. Previous left hemilaminectomy at L1-L2 and at L2-L3. 4. Severe spinal stenosis and bilateral neuroforaminal stenosis at L3-L4 at L4-L5 secondary to disk bulge, ligamentum flavum hypertrophy, and facet hypertrophy. If symptoms worsen, additional imaging may be necessary. Findings discussed with Angelia Leiva MD at 10:39 hour, 11/30/2017. Dictated By: Jace Killian MD Ct Cervical spine Impression: 1. No acute fracture or soft tissue swelling. 2. If the patient has persistent pain or neurologic deficits, consider cervical spine MRI. Findings discussed with Emergency Department physician, Angelia Leiva MD on 11/30/2017 at 10:30 a.m. Dictated By: Dhaval Bai MD CT Head Impression: 1. Negative. No acute intracranial hemorrhage or fracture. 2. Mild atrophy unchanged since 2 weeks prior. Findings discussed with Emergency Department physician, Angelia Leiva MD on 11/30/2017 at 10:30 a.m. Dictated By : Dhaval Bai MD Imaging: Discussed imaging studies w/ orthopedically impaired teacher Radiologist, I viewed and interpreted images myself Laboratory Results: Laboratory Results 11/30/17 10:19 11/30/17 10:19 General Time Seen by Provider: 11/30/17 09:17 Initial Vital Signs: Initial Vital Signs Temperature (C) 36.3 C 11/30/17 09:17 Heart Rate 71 11/30/17 09:17 Respiratory Rate 18 11/30/17 09:17 Blood Pressure 164/89 H 11/30/17 09:17 O2 Sat (%) 93 11/30/17 09:17 O2 Delivery Mode Room Air Allergies/Adverse Reactions: Penicillins Allergy (Unknown, Verified 02/26/13 18:54) Home Medications: Medication Instructions Recorded Aspirin EC [Aspirin EC 81 mg (*)] 81 mg PO DAILY 10/26/15 metFORMIN HCL [Metformin HCl ER] 500 mg PO DAILY 10/26/15 Atorvastatin Calcium [Lipitor 40 40 mg PO DAILY 03/01/17 mg (*)] metFORMIN HCL [Metformin HCl ER] 1,000 mg PO HS 03/01/17 Acetaminophen [Tylenol 325mg (*)] 650 mg PO Q4HRS PRN tab 03/02/17 Cholecalciferol Vit D3 [Vitamin D3 1,000 units PO DAILY 11/17/17 (*)] Cyanocobalamin [Vitamin B12 (*)] 1,000 mcg PO DAILY 11/17/17 Azithromycin [Zithromax] 250 mg PO DAILY #1 tab 11/21/17 Metoprolol Succinate Xr [Toprol Xl 50 mg PO HS #1 tab 11/21/17 25 mg (*)] Departure - Departure Disposition: Home, Routine, Self-Care Clinical Impression: Frequent falls Forehead contusion Qualifiers: Encounter type: initial encounter Qualified Code(s): S00.83XA - Contusion of other part of head, initial encounter Chest wall contusion Qualifiers: Encounter type: initial encounter Laterality: left Qualified Code(s): S20.212A - Contusion of left front wall of thorax, initial encounter Abrasion of left axilla Qualifiers: Encounter type: initial encounter Qualified Code(s): S40.812A - Abrasion of left upper arm, initial encounter Skin tear of forearm without complication Qualifiers: Encounter type: initial encounter Laterality: unspecified laterality Qualified Code(s): S51.819A - Laceration without foreign body of unspecified forearm, initial encounter Condition: Good Instructions: Fall Prevention for Older Adults (ED), Contusion in Adults (ED), Skin Tear (ED), Facial Contusion (ED), Acute Wounds (ED) Additional Instructions: You may contact Dania David at [facility] directly if you have concerns that patient may need to return to Skilled Rehab. You have 30 days from the date of patient's discharge from rehab (11/29/17) that he is able to return to rehab directly from home. Follow up with your scheduled home health visit today at 1:30 PM Follow up with the wound care clinic. Return to the Emergency Department for chest pain, shortness of breath, fever, redness, discharge from wound, increasing pain or other worsening of condition. Referrals: [facility] [Clinic] - As per Instructions Report Scribed for: Angelia Leiva Report Scribed by: Carolee vOalle Date of Report: 11/30/17 Time of Report: 09:11
--- NOTE | 2017-11-30 10:16 | CPEKG ---
Heart Rate: 61 RR Interval: 984 P-R Interval: 240 QRSD Interval: 92 QT Interval: 444 QTC Interval: 448 P Lincoln: 68 QRS Lincoln: 27 T Wave Lincoln: 63 EKG Severity - ABNORMAL ECG - EKG Impression: SINUS RHYTHM EKG Impression: VENTRICULAR PREMATURE COMPLEX EKG Impression: FIRST DEGREE AV BLOCK EKG Impression: LOW VOLTAGE IN FRONTAL LEADS Electronically Signed By: Ibeth Gil 03-Dec-2017 15:32:47
[2017-11-30 10:29] LABS: PLATELET COUNT 210 10^3/uL (150-400)
[2017-11-30 10:44] LABS: INR 1.19 (0.83-1.16); PROTIME(PATIENT) 15.3 SEC (12.0-15.0)
--- NOTE | 2017-11-30 11:39 | ASMTCMCOM ---
CM Note CM Note Notes: Patient presents to the ER after falling at home this morning. Patient was recently discharged to [facility] ([facility]) on 11/21/17 after an IP stay here. Patient discharged to home from [facility] yesterday. I have met with family and confirmed that services are to begin today with [facility], with an intake assesment scheduled for 1330 this afternoon. Patient and family would like to meet with and keep patient home if possible. I have spoken with Dania at [facility] and confirmed that patient may return to [facility] within 30 days of discharge from there (11/29/17) and that family may contact Dania directly at any time. Patient's daughter Michelle will follow up with Dania if needed Michelle also confirms that family has been looking into truck terminal manager care options such as [place] and memory care as well I have LM with Noy #[id number], RN liason with Medicaid transitional care to update her on patient's plan of care Date Signed: 11/30/2017 11:39 AM Electronically Signed By:Shannan Javed, CRUZ
[2017-11-30] MEDS ORDERED: LET GEL TOPICAL 1 EA SYR TP ONE (11:40)
[2017-11-30 13:20] VITALS: BP 137/73
== END 2017-11-30 13:19 | disposition home or self-care (01) ==
LOC: EDUNIT#
DX: S20.212A Contusion of left front wall of thorax, initial encounter (principal); S00.83XA Contusion of other part of head, initial encounter; S51.812A Laceration without foreign body of left forearm, initial encounter; S40.812A Abrasion of left upper arm, initial encounter; I25.10 Atherosclerotic heart disease of native coronary artery without angina pectoris; E11.9 Type 2 diabetes mellitus without complications; Z86.73 Personal history of transient ischemic attack (TIA), and cerebral infarction without residual deficits; Z79.82 Long term (current) use of aspirin; Z79.84 Long term (current) use of oral hypoglycemic drugs; W10.8XXA Fall (on) (from) other stairs and steps, initial encounter; Y92.89 Other specified places as the place of occurrence of the external cause; Y99.8 Other external cause status; Y93.89 Activity, other specified
CPT/HCPCS: G0390

== ENCOUNTER 2018-01-08 23:32 | Inpatient (IN) | payer OTHER ==
[2018-01-08 23:57] LABS: PLATELET COUNT 228 10^3/uL (150-400)
--- NOTE | 2018-01-09 00:09 | EDPHY ---
H & P Stated Complaint: med check- worsening dementia Time Seen by Provider: 01/08/18 23:43 HPI/ROS: Chief Complaint: Confusion, agitation HPI: 87-year-old male with a history of coronary artery disease status post stenting, CVA with no residual deficits and type 2 diabetes. Patient had a recent admission for pneumonia and a 9th of last month. Patient also was seen emergency department over a month ago after a fall and had a negative CT scan of the head. Tonight the patient was becoming increasingly agitated confused. He is convinced that he was not to his and he did not recognize her. He was pacing on the house becoming increasingly agitated. His called 911 at a concerns for her and his safety. On arrival EMS noted the patient to be confused and agitated. He does have a history of dementia. He states he does remember the episode is not sure why he was confused and did not recognize his . He does state however that his home is "a house of ill repute". ROS: 10 point Review of Systems is negative except as noted in the HPI. PMH: Dementia, coronary artery disease, CVA, diabetes Social History: No smoking, no alcohol, no recreational drug use Family History: non-contributory Physical Exam: Gen: Awake, Alert, No Distress HEENT: Nose: no rhinorrhea Eyes: PERRLA, EOMI Mouth: Moist mucosa Neck: Supple, no JVD Chest: nontender, lungs clear to auscultation Heart: S1, S2 normal, no murmur Abd: Soft, non-tender, no guarding Back: no CVA tenderness, no midline tenderness Ext: no edema, non-tender, dressing left upper arm over old skin tears Skin: no rash Neuro: CN II-XII intact, Sensation grossly intact, Strength 5/5 in bilateral upper and lower extremities - Medical/Surgical History Hx Asthma: No Hx Chronic Respiratory Disease: No Hx Diabetes: Yes Hx Cardiac Disease: Yes Hx Renal Disease: No Hx Cirrhosis: No Hx Alcoholism: No Hx HIV/AIDS: No Hx Splenectomy or Spleen Trauma: No Other PMH: Hypertension, diabetes, coronary artery disease, asymptomatic right carotid artery stenosis, peripheral neuropathy, chronic bilateral lower extremity weakness, deconditioning, unsteady gait, intermittent peripheral vertigo - Social History Smoking Status: Never smoked Constitutional: Initial Vital Signs Temperature (C) 36.3 C 01/08/18 23:50 Heart Rate 67 01/08/18 23:50 Respiratory Rate 20 01/08/18 23:50 Blood Pressure 173/96 H 01/08/18 23:50 O2 Sat (%) 99 01/08/18 23:50 O2 Delivery Mode Room Air Allergies/Adverse Reactions: Penicillins Allergy (Unknown, Verified 01/08/18 23:50) Home Medications: Medication Instructions Recorded Aspirin EC [Aspirin EC 81 mg (*)] 81 mg PO DAILY 10/26/15 metFORMIN HCL [Metformin HCl ER] 500 mg PO DAILY 10/26/15 Atorvastatin Calcium [Lipitor 40 40 mg PO DAILY 03/01/17 mg (*)] metFORMIN HCL [Metformin HCl ER] 1,000 mg PO HS 03/01/17 Acetaminophen [Tylenol 325mg (*)] 650 mg PO Q4HRS PRN tab 03/02/17 Cholecalciferol Vit D3 [Vitamin D3 1,000 units PO DAILY 11/17/17 (*)] Cyanocobalamin [Vitamin B12 (*)] 1,000 mcg PO DAILY 11/17/17 Azithromycin [Zithromax] 250 mg PO DAILY #1 tab 11/21/17 Metoprolol Succinate Xr [Toprol Xl 50 mg PO HS #1 tab 11/21/17 25 mg (*)] Medical Decision Making ED Course/Re-evaluation: 87-year-old male with a history dementia presenting with acute exacerbation of confusion, possibly exacerbation of his dementia. Will evaluate for possible infectious source. He will likely require admission. I have attempted to call the patient's family, both his Christie and his daughter least the. There was no answer on the either number. Case has been discussed with Dr. Way, hospitalist. He will admit to his service for further care. - Data Points Laboratory Results: Laboratory Results 01/08/18 23:40 01/08/18 23:40 01/08/18 01/08/18 23:40 23:40 WBC 7.34 10^3/uL 10^3/uL (3.80-9.50) RBC 3.48 10^6/uL L 10^6/uL (4.40-6.38) Hgb 10.8 g/dL L g/dL (13.7-17.5) Hct 33.1 % L % (40.0-51.0) MCV 95.1 fL fL (81.5-99.8) MCH 31.0 pg pg (27.9-34.1) MCHC 32.6 g/dL g/dL (32.4-36.7) RDW 14.0 % % (11.5-15.2) Plt Count 228 10^3/uL 10^3/uL (150-400) MPV 10.7 fL fL (8.7-11.7) Neut % (Auto) 60.6 % % (39.3-74.2) Lymph % (Auto) 26.2 % % (15.0-45.0) [place] % (Auto) 10.2 % % (4.5-13.0) Eos % (Auto) 2.3 % % (0.6-7.6) Baso % (Auto) 0.3 % % (0.3-1.7) Nucleat RBC Rel Count 0.0 % % (0.0-0.2) Absolute Neuts (auto) 4.45 10^3/uL 10^3/uL (1.70-6.50) Absolute Lymphs (auto) 1.92 10^3/uL 10^3/uL (1.00-3.00) Absolute Monos (auto) 0.75 10^3/uL 10^3/uL (0.30-0.80) Absolute Eos (auto) 0.17 10^3/uL 10^3/uL (0.03-0.40) Absolute Basos (auto) 0.02 10^3/uL 10^3/uL (0.02-0.10) Absolute Nucleated RBC 0.00 10^3/uL 10^3/uL (0-0.01) Immature Gran % 0.4 % % (0.0-1.1) Immature Gran # 0.03 10^3/uL 10^3/uL (0.00-0.10) Sodium 141 mEq/L mEq/L (135-145) Potassium 4.1 mEq/L mEq/L (3.3-5.0) Chloride 105 mEq/L mEq/L (97-110) Carbon Dioxide 26 mEq/l mEq/l (22-31) Anion Gap 10 mEq/L mEq/L (8-16) BUN 24 mg/dL H mg/dL (7-23) Creatinine 0.8 mg/dL mg/dL (0.7-1.3) Estimated GFR > 60 Glucose 111 mg/dL H mg/dL (70-100) Calcium 9.3 mg/dL mg/dL (8.5-10.4) Departure - Departure Disposition: [facility] Inpatient Acute Clinical Impression: Confusion Condition: Fair
[2018-01-09] MEDS ORDERED: ACETAMINOPHEN 325 MG TAB PO PRN ×2 (00:21→09:55)
[2018-01-09] MEDS ORDERED: ONDANSETRON DISINTEGRATING 4 MG TAB PO PRN (00:21)
[2018-01-09] MEDS ORDERED: ONDANSETRON 4 MG/2 ML VIAL IVP PRN (00:21)
--- NOTE | 2018-01-09 01:39 | PDGENHP ---
History and Physical - Chief Complaint Confusion - History of Present Illness 87 yo M w/ dementia, T2DM, and CAD presents via EMS from home with reports of confusion and agitation. EMS was apparently called to the patient's home by his as he was experiencing odd behavior and agitation. As told by the patient himself, he saw a woman in his house who "looked like his " but for some reason he did not believe this was his . He is quite distraught by the idea that he may "be going crazy". At the time he thought the woman in his house may have been sent there by an escort service. At this point in time he will still not accept that the woman in his house was in fact his . The patient was admitted here in November due to confusion caused by likely pneumonia. He was again seen in the ED for falls on 11/30. He has an abrasion with ongoing bleeding to his LUE. He denies fevers, chills, SOB, chest pain, dysuria, and diarrhea. Currently he denies all physical symptoms but remains quite distressed by the situation. He is sad he has to stay in the hospital. Case discussed with ED physician Dr. Santamaria, previous records reviewed including D/C summary by Dr. Grimes dated 11/21/17. History Information - Allergies/Home Medication List Allergies/Adverse Reactions: Penicillins Allergy (Unknown, Verified 01/08/18 23:50) Home Medications: Aspirin EC [Aspirin EC 81 mg (*)] 81 mg PO DAILY 10/26/15 [Last Taken 11/16/17] metFORMIN HCL [Metformin HCl ER] 500 mg PO DAILY 10/26/15 [Last Taken 11/16/17] Atorvastatin Calcium [Lipitor 40 mg (*)] 40 mg PO DAILY 03/01/17 [Last Taken 11/28] metFORMIN HCL [Metformin HCl ER] 1,000 mg PO HS 03/01/17 [Last Taken 11/15/17] Cholecalciferol Vit D3 [Vitamin D3 (*)] 1,000 units PO DAILY 11/17/17 [Last Taken 11/16/17] Cyanocobalamin [Vitamin B12 (*)] 1,000 mcg PO DAILY 11/17/17 [Last Taken ] I have personally reviewed and updated: family history, medical history - Past Medical History Additional medical history: Carotid stenosis, severe, noted as 70-90% at the right carotid bulb in June of 2016, patient elected for nonoperative management with Dr. Jace Hayden at that time. Esophageal stricture. Diabetes mellitus type 2 with most recent hemoglobin A1c 8.3%. Coronary artery disease status post stenting 15 years ago - Surgical History Additional surgical history: esophageal balloon in 2013. Cardiac stent 15 years ago - Family History Additional family history: family history of esophageal cancer achalasia - Social History Smoking Status: Never smoked Additional social history: independent in his ADLs Review of Systems Review of Systems: ROS: 10pt was reviewed & negative except for what was stated in HPI & below Physical Exam Physical Exam: Temp Pulse Resp BP Pulse Ox 36.3 C 77 16 180/97 H 99 01/08/18 23:50 01/09/18 01:26 01/09/18 01:26 01/09/18 01:26 01/09/18 01:26 Constitutional: appears nourished, not in pain Eyes: PERRL, EOMI Ears, Nose, Mouth, Throat: moist mucous membranes, no oral mucosal ulcers Cardiovascular: regular rate and rhythym, systolic murmur Respiratory: no respiratory distress, no rales or rhonchi Gastrointestinal: normoactive bowel sounds, soft, non-tender abdomen Skin: warm, normal color, other (Abrasion LUE with signs of recent bleding, does not appear infected) Musculoskeletal: full muscle strength, no muscle tenderness Neurologic: sensation intact bilaterally, other (A&Ox2 (person and place)), No facial droop Psychiatric: interacting appropriately, not anxious Lab Data & Imaging Review 01/08/18 23:40 01/08/18 23:40 WBC 7.34 10^3/uL (3.80-9.50) 01/08/18 23:40 RBC 3.48 10^6/uL (4.40-6.38) L 01/08/18 23:40 Hgb 10.8 g/dL (13.7-17.5) L 01/08/18 23:40 Hct 33.1 % (40.0-51.0) L 01/08/18 23:40 MCV 95.1 fL (81.5-99.8) 01/08/18 23:40 MCH 31.0 pg (27.9-34.1) 01/08/18 23:40 MCHC 32.6 g/dL (32.4-36.7) 01/08/18 23:40 RDW 14.0 % (11.5-15.2) 01/08/18 23:40 Plt Count 228 10^3/uL (150-400) 01/08/18 23:40 MPV 10.7 fL (8.7-11.7) 01/08/18 23:40 Neut % (Auto) 60.6 % (39.3-74.2) 01/08/18 23:40 Lymph % (Auto) 26.2 % (15.0-45.0) 01/08/18 23:40 [place] % (Auto) 10.2 % (4.5-13.0) 01/08/18 23:40 Eos % (Auto) 2.3 % (0.6-7.6) 01/08/18 23:40 Baso % (Auto) 0.3 % (0.3-1.7) 01/08/18 23:40 Nucleat RBC Rel Count 0.0 % (0.0-0.2) 01/08/18 23:40 Absolute Neuts (auto) 4.45 10^3/uL (1.70-6.50) 01/08/18 23:40 Absolute Lymphs (auto) 1.92 10^3/uL (1.00-3.00) 01/08/18 23:40 Absolute Monos (auto) 0.75 10^3/uL (0.30-0.80) 01/08/18 23:40 Absolute Eos (auto) 0.17 10^3/uL (0.03-0.40) 01/08/18 23:40 Absolute Basos (auto) 0.02 10^3/uL (0.02-0.10) 01/08/18:40 Absolute Nucleated RBC 0.00 10^3/uL (0-0.01) 01/08/18 23:40 Immature Gran % 0.4 % (0.0-1.1) 01/08/18 23:40 Immature Gran # 0.03 10^3/uL (0.00-0.10) 01/08/18 23:40 Sodium 141 mEq/L (135-145) 01/08/18 23:40 Potassium 4.1 mEq/L (3.3-5.0) 01/08/18 23:40 Chloride 105 mEq/L (97-110) 01/08/18 23:40 Carbon Dioxide 26 mEq/l (22-31) 01/08/18 23:40 Anion Gap 10 mEq/L (8-16) 01/08/18 23:40 BUN 24 mg/dL (7-23) H 01/08/18 23:40 Creatinine 0.8 mg/dL (0.7-1.3) 01/08/18 23:40 Estimated GFR > 60 01/08/18 23:40 Glucose 111 mg/dL (70-100) H 01/08/18 23:40 Calcium 9.3 mg/dL (8.5-10.4) 01/08/18 23:40 Visualized and Interpreted Chest x-ray results: Yes Chest X-Ray results: no infiltrate Assessment & Plan Assessment: 87 yo M w/ dementia, T2DM, and CAD presents with confusion of unclear etiology. Plan: 1. Acute encephalopathy - Unclear etiology; patient is alert and oriented x2, which I believe is near his baseline in terms of orientation. However, he was unable to recognize his at home on the evening of admission and became agitated as a result. It is unclear wether this was caused by an acute medical issue(none apparent on work-up so far), or if this represents step-ge progression of his known dementia. - Admit for observation - PT/OT evaluations - CXR, UA for basic infectious work-up - If encephalopathy persists or worsens, an MRI to evaluate for stroke may be helpful 2. NIDDM - On metformin only as outpatient; will monitor without medication initially noting near normal glucose values. 3. Hx CAD - With a stent placement >10 years ago; denies chest pain currently. 4. Dementia - I suspect this may be progressing as today represents patient's 3rd hospital visit in the last 2 months. 5. LUE abrasion - 2/2 fall in late November, does not appear infected currently. - Wound care consult placed Diet - Regular Code - Full Ppx - LMWH Dispo - Admit under observation status
--- NOTE | 2018-01-09 08:38 | ASMTLACE ---
DAISHA Acuity / Level of Answers: Yes Care: Did the patient have an inpatient admission? Comorbidities - select Answers: Cerebrovascular disease all that apply (CVA, TIA, aneurysms, vasc ular dementia) Coronary Artery Disease Dementia Diabetes (uncontrolled or controlled) History of falls # of Emergency department Answers: 5-8 visits in the last 6 months Score: 17 Date Signed: 01/09/2018 08:37 AM Electronically Signed By:Nancy Clemons
[2018-01-09] MEDS: ENOXAPARIN 40 MG/0.4 ML SYR SC SCH (08:50)
[2018-01-09] MEDS ORDERED: OLANZapine DISINTEGR 5 MG TAB PO ONE (09:58)
[2018-01-09] MEDS: METOPROLOL SUCCINATE XR 25 MG TAB PO SCH (10:08)
--- NOTE | 2018-01-09 11:04 | ASMTCASEMG ---
Living Arrangements What is your living Answers: With Spouse arrangement? Who do you live with? Type Of Residence What kind of residence do Answers: House you live in? Discharge Plan Comments Coordination Status Comments Notes: Pt is a 87 y/o man admitted for altered mental status. Pt has dementia and w/ possible dementia. Pt was living independently w/ his prior to coming to the hospital. Pt has a supportive daughter. Therapies have been ordered and awaiting recommendations. Pt will most likely have needs at time of d/c. CM to follow. Plan: TBD Date Signed: 01/09/2018 11:03 AM Electronically Signed By:CHAPIN Adhikari
--- NOTE | 2018-01-09 11:56 | ASMTCMCOM ---
CM Note CM Note Notes: Madeleine from Family called and notified CM that pt is current w/ them. Updates sent to Family . Date Signed: 01/09/2018 11:50 AM Electronically Signed By:CHAPIN Adhikari
[2018-01-09] MEDS: metFORMIN SR 500 MG TAB PO SCH (20:41)
[2018-01-09] MEDS ORDERED: OLANZapine DISINTEGR 10 MG TAB PO SCH (21:00)
[2018-01-10] MEDS: ASPIRIN EC 81 MG TAB PO SCH (10:35)
[2018-01-10] MEDS: METOPROLOL SUCCINATE XR 25 MG TAB PO SCH (10:35)
[2018-01-10] MEDS: metFORMIN SR 500 MG TAB PO SCH ×2 (10:35→20:15)
[2018-01-10] MEDS: ATORVASTATIN CALCIUM 40 MG TAB PO SCH (10:35)
[2018-01-10] MEDS: CYANO/VITAMIN B12 1000 MCG TAB PO SCH (10:35)
[2018-01-10] MEDS: ENOXAPARIN 40 MG/0.4 ML SYR SC SCH (10:36)
--- NOTE | 2018-01-10 13:19 | HOSPPROG ---
Hospitalist Progress Note Assessment/Plan: 87 yo M w/ dementia, T2DM, and CAD presents with confusion of unclear etiology. *acute on chronic encephalopathy -suspect his dementia is worsening -has no clear cut infectious etiology, UA and chest xray sable -he is oriented to himself only -has some acidosis which could be r/t poor intake *NIDDM -on Metformin *CAD -stent placement approximately 10 years ago -no c/o of this *Dementia -this is his 3rd visit in 2 months -suspect he needs a dementia care unit *LUE abrasion -wound care *plan: reviewed his care w CM, he needs a secure unit; suspect he will come back to the ER because the family won't be able to handle him. Started on Zyprexa at night, but will change to Seroquel to see if this helps him sleep through the night (will start at low dose). He will require another midnight stay to help identify a safe discharge. Subjective: Jeremy is calm and cooperative. Objective: Vital Signs Temp Pulse Resp BP Pulse Ox 36.5 C 61 18 160/82 H 96 01/10/18 08:00 01/10/18 12:00 01/10/18 12:00 01/10/18 12:00 01/10/18 12:00 Laboratory Results 01/09/18 09:13 01/09/18 05:46 01/09/18 01/10/18 01/11/18 05:59 05:59 05:59 Intake Total 370 Output Total 125 Balance -125 370 - Physical Exam Constitutional: no apparent distress, appears nourished, not in pain Eyes: PERRL Ears, Nose, Mouth, Throat: hearing normal Respiratory: no respiratory distress Skin: warm Neurologic: other (alert and oriented only to himself) Psychiatric: interacting appropriately (answers questions but not correctly), poor insight, poor judgement, poor memory ICD10 Worksheet Patient Problems: Problems Problem Status Onset Confusion Acute Abrasion of left axilla Acute Altered mental status, unspecified Acute CVA, old, facial weakness Acute Chest wall contusion Acute Chronic Disease Mgmt/Transitional care Acute Forehead contusion Acute Frequent falls Acute Leukocytosis Acute Pneumonia Acute Skin tear of forearm without complication Acute Weakness Acute
--- NOTE | 2018-01-10 16:29 | PDMN ---
Medical Necessity Medical necessity: Change to inpt as of 01/10/18 @ 14:40. Pt meets inpt criteria per MD order and [facility] [place] [place] B-[id number], Delirium: Inpatient Care. Est LOS>2MN for ongoing eval and treatment of acute on chronic encephalopathy, trial on Seroquel tonight , not safe for dc home at this time, comorbidities including adv age 87yo, NIDDM , CAD.
--- NOTE | 2018-01-10 16:35 | ASMTCMCOM ---
CM Note CM Note Notes: Spoke with patient's daughter, Michelle who understands her dad needs a higher level of care and cannot return to independent living. Michelle introduced Aruna who states she is an old friend of the family and is helping to manage details of care for patient and his . Aruna's card says [employer] Supervisor. Michelle was given a list of SNF's with memory care units. She will get back with us tomorrow with the ones she would like referral's sent to. Patient's will remain in her home and Michelle states her mom is fine and does not have any dementia. (it was in report patient's had dementia too) Patient has Medicare and [facility]. This family has a home of their own and does not live in [facility]. There may be financial issues in placing patient since the does not want to sell their home and go through spin down of their assets to finance the memory care facility. Michelle was given phone numbers for staying in touch with case finisher. She will call case management when they have made a decision. Michelle has requested a letter confirming her dad's need for a higher level of care to show her mother as medical confirmation. By her report, if the dr.'s say he needs higher level of care it will help her emotionally to accept the change of status. CM will follow. Date Signed: 01/10/2018 04:34 PM Electronically Signed By:Tori Westbrook LCSW
[2018-01-10] MEDS: QUEtiapine FUMARATE 25 MG TAB PO SCH (20:15)
[2018-01-11] MEDS: CYANO/VITAMIN B12 1000 MCG TAB PO SCH (08:23)
[2018-01-11] MEDS: ATORVASTATIN CALCIUM 40 MG TAB PO SCH (08:23)
[2018-01-11] MEDS: metFORMIN SR 500 MG TAB PO SCH ×2 (08:23→20:43)
[2018-01-11] MEDS: ENOXAPARIN 40 MG/0.4 ML SYR SC SCH (08:24)
[2018-01-11] MEDS: METOPROLOL SUCCINATE XR 25 MG TAB PO SCH (08:24)
[2018-01-11] MEDS: ASPIRIN EC 81 MG TAB PO SCH (08:24)
--- NOTE | 2018-01-11 09:30 | HOSPPROG ---
Hospitalist Progress Note Assessment/Plan: 87 yo M w/ dementia, T2DM, and CAD presents with confusion of unclear etiology. *acute on chronic encephalopathy -suspect his dementia is worsening -has no clear cut infectious etiology, UA and chest xray zain -he is oriented to himself only -has some acidosis which could be r/t poor intake -he is much clearer today, knows he is in [place] and thinks he is in a hospital -per charge nurse patient didn't need a sitter after midnight, he was started on low dose Seroquel *NIDDM -on Metformin *CAD -stent placement approximately 10 years ago -no c/o of this *Dementia -this is his 3rd visit in 2 months -suspect he needs a dementia care unit *LUE abrasion -wound care *HTN -blood pressure was very elevated this morning but he had not received his home med -will monitor. *plan: CM to talk w Family to see if they can increase care at home, he did well with the Seroquel last night. I spent 20 minutes yesterday talking w his that she and her daughter need to get Jeremy in a secure SNF where he doesn 't wander. Reviewed w her the black box warning about Seroquel. Subjective: Jeremy feels well, says he is enjoying breakfast. Objective: Vital Signs Temp Pulse Resp BP Pulse Ox 36.6 C 65 18 189/104 H 98 01/11/18 08:00 01/11/18 08:00 01/11/18 08:00 01/11/18 08:00 01/11/18 08:00 - Physical Exam Constitutional: no apparent distress, appears nourished, not in pain Eyes: PERRL Ears, Nose, Mouth, Throat: hearing normal Respiratory: no respiratory distress Skin: warm Musculoskeletal: full muscle strength Neurologic: other (oriented to himself and where he is) Psychiatric: interacting appropriately, poor insight, poor judgement, poor memory ICD10 Worksheet Patient Problems: Problems Problem Status Onset Confusion Acute Abrasion of left axilla Acute Altered mental status, unspecified Acute CVA, old, facial weakness Acute Chest wall contusion Acute Chronic Disease Mgmt/Transitional care Acute Forehead contusion Acute Frequent falls Acute Leukocytosis Acute Pneumonia Acute Skin tear of forearm without complication Acute Weakness Acute
--- NOTE | 2018-01-11 14:42 | ASMTCMCOM ---
CM Note CM Note Notes: CM spoke to Lauren Pitt and Connie, RN regarding d/c POC. Pt did great last night on seroquel. Pt is pleasant and cooperative. Lauren is recommending that pt can d/c home with seroquel with private duty supervision overnight. KOKO spoke to Annmarie regarding d/c POC. Ann is able to arrange for overnight supervision with a caregiver they've use in the past. OKKO spoke to the Kandis, guardian for MichellePeng Lopez is very involved w/ this family and reports that pts family will need written instructions at time of d/c. Pt is on two wait list at two memory care facilities at this time. Plan: Home w/ HC, PT with overnight private duty supervision Date Signed: 01/11/2018 02:41 PM Electronically Signed By:CHAPIN Adhikari
[2018-01-11] MEDS: QUEtiapine FUMARATE 25 MG TAB PO SCH (20:43)
[2018-01-11] MEDS: LISINOPRIL 20 MG TAB PO SCH (22:56)
[2018-01-12] MEDS ORDERED: BIOTENE DRY MOUTH ORAL RINSE 237 ML BTL MM PRN (03:01)
[2018-01-12] MEDS: LISINOPRIL 20 MG TAB PO SCH (08:27)
[2018-01-12] MEDS: metFORMIN SR 500 MG TAB PO SCH (08:27)
[2018-01-12] MEDS: ATORVASTATIN CALCIUM 40 MG TAB PO SCH (08:27)
[2018-01-12] MEDS: ASPIRIN EC 81 MG TAB PO SCH (08:28)
[2018-01-12] MEDS: CYANO/VITAMIN B12 1000 MCG TAB PO SCH (08:28)
[2018-01-12] MEDS: ENOXAPARIN 40 MG/0.4 ML SYR SC SCH (08:28)
[2018-01-12] MEDS: METOPROLOL SUCCINATE XR 25 MG TAB PO SCH (08:28)
--- NOTE | 2018-01-12 10:39 | PDIAF ---
- Diagnosis Diagnosis: confusion Code Status: Full Code - Medication Management Discharge Medications: Medications to Continue on Transfer Aspirin EC [Aspirin EC 81 mg (*)] 81 mg PO DAILY 10/26/15 [Last Taken 01/07/18] metFORMIN HCL [Metformin HCl ER] 500 mg PO DAILY 10/26/15 [Last Taken 01/07/18] Atorvastatin Calcium [Lipitor 40 mg (*)] 40 mg PO DAILY 03/01/17 [Last Taken ] metFORMIN HCL [Metformin HCl ER] 1,000 mg PO HS 03/01/17 [Last Taken 01/07/18] Acetaminophen [Tylenol 325mg (*)] 650 mg PO Q4HRS PRN tab 03/02/17 [Last Taken Unknown] Cyanocobalamin [Vitamin B12 (*)] 1,000 mcg PO DAILY 11/17/17 [Last Taken ] Metoprolol Succinate Xr [Toprol Xl 25 mg (*)] 25 mg PO DAILY 01/09/18 [Last Taken 01/07/18] Acetaminophen [Tylenol 325mg (*)] 650 mg PO Q4HRS PRN tab 01/12/18 [Last Taken Unknown] Lisinopril [Zestril 20 mg (*)] 20 mg PO DAILY #30 tab 01/12/18 [Last Taken Unknown] QUEtiapine FUMARATE [Seroquel 25 mg (*)] 12.5 mg PO HS #30 tab 01/12/18 [Last Taken Unknown] Discharge Medications: Refer to the Discharge Home Medication list for PRN reason. PICC Care - Routine: N/A - Orders Services needed: Home Care, Physical Therapy, Occupational Therapy Home Care Face to Face: I certify that this patient was under my care and that I had the required [id number] encounter meeting the encounter requirements on the discharge day. My findings support the fact that the patient is homebound as defined in Home Care Face to Face Continued: CMS Chapter 7 Medicare Benefits Manual 30.1.1 , The condition of the patient is such that there exists a normal inability to leave home and consequently, leaving home would require a considerable and taxing effort. Isolation Type: None Diet Recommendation: no restrictions on diet - Follow Up Care Current Providers and Referrals: Patient,NotPresent [Primary Care Provider] - As per Instructions
[2018-01-12 11:08] VITALS: BP 91/54
--- NOTE | 2018-01-12 11:35 | ASDISCHSUM ---
Discharge Information Plan Status:Home with Home Health Medically Cleared to Leave:01/12/2018 Discharge Date:01/12/2018 CM D/C Disposition: ADT D/C Disposition:[id number] Projected Discharge Date:01/12/2018 11:00 AM Transportation at D/C: Discharge Delay Reason: Follow-Up Date:01/12/2018 11:00 AM Discharge Slot: Final Diagnosis: Placement Information Referral Type:*Home Health Care Services Referral ID:[id number] Provider Name:[facility] Address 1:[address] [address] Address 2: City:[place] Selection Factors: State:[place] Patient Contact Information Contact Name:MARCOS Relationship: Address:[address] Work Phone: [facility]:[place] Alternate Phone: State/Zip Code:[place] [address] Email: Financial Information Financial Class:Medicare Primary Plan Desc:MEDICARE INPATIENT Primary Plan Number:[id number] Secondary Plan Desc:MELISSA HURTADO PPO Secondary Plan Number:[id number] Assessment Information LACE LACE Acuity / Level of Answers: Yes Care: Did the patient have an inpatient admission? Comorbidities - select Answers: Cerebrovascular disease all that apply (CVA, TIA, aneurysms, vasc ular dementia) Coronary Artery Disease Dementia Diabetes (uncontrolled or controlled) History of falls # of Emergency department Answers: 5-8 visits in the last 6 months Score: 17 Date Signed: 01/09/2018 08:37 AM Electronically Signed By:Nancy Clemons [facility] Initial CM Assessment Living Arrangements What is your living Answers: With Spouse arrangement? Who do you live with? Type Of Residence What kind of residence do Answers: House you live in? Discharge Plan Comments Coordination Status Comments Notes: Pt is a 87 y/o man admitted for altered mental status. Pt has dementia and w/ possible dementia. Pt was living independently w/ his prior to coming to the hospital. Pt has a supportive daughter. Therapies have been ordered and awaiting recommendations. Pt will most likely have needs at time of d/c. CM to follow. Plan: TBD Date Signed: 01/09/2018 11:03 AM Electronically Signed By:CHAPIN Adhikari [facility] Progress Note CM Note CM Note Notes: Madeleine from Family called and notified CM that pt is current w/ them. Updates sent to Family . Date Signed: 01/09/2018 11:50 AM Electronically Signed By:CHAPIN Adhikari [facility] Progress Note CM Note CM Note Notes: Spoke with patient's daughter, Michelle who understands her dad needs a higher level of care and cannot return to independent living. Michelle introduced Aruna who states she is an old friend of the family and is helping to manage details of care for patient and his . Aruna's card says Transition Teacher. Michelle was given a list of SNF's with memory care units. She will get back with us tomorrow with the ones she would like referral's sent to. Patient's will remain in her home and Michelle states her mom is fine and does not have any dementia. (it was in report patient's had dementia too) Patient has Medicare and [place] Blue [employer] Blue Shield. This family has a home of their own and does not live in [facility]. There may be financial issues in placing patient since the does not want to sell their home and go through spin down of their assets to finance the memory care facility. Michelle was given phone numbers for staying in touch with case coordinator. She will call case management when they have made a decision. Michelle has requested a letter confirming her dad's need for a higher level of care to show her mother as medical confirmation. By her report, if the dr.'s say he needs higher level of care it will help her emotionally to accept the change of status. CM will follow. Date Signed: 01/10/2018 04:34 PM Electronically Signed By:Tori Westbrook LCSW [facility] Progress Note CM Note CM Note Notes: KOKO spoke to Lauren Pitt and CRUZ Rosales regarding d/c POC. Pt did great last night on seroquel. Pt is pleasant and cooperative. Lauren is recommending that pt can d/c home with seroquel with private duty supervision overnight. KOKO spoke to Annmarie regarding d/c POC. Ann is able to arrange for overnight supervision with a caregiver they've use in the past. KOKO spoke to the Kandis, guardian for Michelle. Jessica is very involved w/ this family and reports that pts family will need written instructions at time of d/c. Pt is on two wait list at two memory care facilities at this time. Plan: Home w/ HC, PT with overnight private duty supervision Date Signed: 01/11/2018 02:41 PM Electronically Signed By:CHAPIN Adhikari Case Management Discharge Plan Note Case Management Discharge Discharge Order Complete? Answers: Yes Patient to Obtain Answers: via Family Medications Transportation Arranged Answers: Family/Friends EMTALA Complete Answers: No Case Management Transport Answers: No Form Complete Faxed Final Orders Answers: Yes Agency/Facility Transfer Answers: Yes Report Printed & Faxed to Receiving Agency Family Notified Answers: Yes Discharge Comments Notes: Pts case discussed w/ CORKY Tesfaye and CRUZ Naqvi. Pt is being discharged home today. CM notified [facility] of the d/c. CM sent the d/c orders. CM spoke w/ pts Ann and notified her of the d/c. Ann has the drywall mechanic all set up. No other needs at this time. CM available for changes. Plan: [facility]; PT, OT Date Signed: 01/12/2018 11:33 AM Electronically Signed By:CHAPIN Adhikari Intervention Information Intervention Type:MORGAN-Not Delivered Date of Service:01/10/2018 10:52 AM Patient Type:Observation Staff Member:Nancy Clemons Hours: Discipline: Severity: Comment:Patient has dementia; Unable to sign M [facility] form
--- NOTE | 2018-01-12 13:47 | PDIAF ---
- Diagnosis Diagnosis: confusion Code Status: Full Code - Medication Management Discharge Medications: Medications to Continue on Transfer Aspirin EC [Aspirin EC 81 mg (*)] 81 mg PO DAILY 10/26/15 [Last Taken 01/07/18] metFORMIN HCL [Metformin HCl ER] 500 mg PO DAILY 10/26/15 [Last Taken 01/07/18] Atorvastatin Calcium [Lipitor 40 mg (*)] 40 mg PO DAILY 03/01/17 [Last Taken ] metFORMIN HCL [Metformin HCl ER] 1,000 mg PO HS 03/01/17 [Last Taken 01/07/18] Acetaminophen [Tylenol 325mg (*)] 650 mg PO Q4HRS PRN tab 03/02/17 [Last Taken Unknown] Cyanocobalamin [Vitamin B12 (*)] 1,000 mcg PO DAILY 11/17/17 [Last Taken ] Metoprolol Succinate Xr [Toprol Xl 25 mg (*)] 25 mg PO DAILY 01/09/18 [Last Taken 01/07/18] Acetaminophen [Tylenol 325mg (*)] 650 mg PO Q4HRS PRN tab 01/12/18 [Last Taken Unknown] QUEtiapine FUMARATE [Seroquel 25 mg (*)] 12.5 mg PO HS #30 tab 01/12/18 [Last Taken Unknown] Discharge Medications: Refer to the Discharge Home Medication list for PRN reason. PICC Care - Routine: N/A - Orders Services needed: Home Care, Registered Nurse, Physical Therapy, Occupational Therapy Home Care Face to Face: I certify that this patient was under my care and that I had the required [id number] encounter meeting the encounter requirements on the discharge day. My findings support the fact that the patient is homebound as defined in Home Care Face to Face Continued: CMS Chapter 7 Medicare Benefits Manual 30.1.1 , The condition of the patient is such that there exists a normal inability to leave home and consequently, leaving home would require a considerable and taxing effort. Isolation Type: None Diet Recommendation: no restrictions on diet Additional Instructions: Wound on Left arm: Clean with Normal Saline or wound cleanser. Pat dry. Apply Silvasorb or Neosporin over the wound bed. Cover with Mepilex pad or Telfa non- stick pad. Wrap arm with Chi wrap and secure in place with stretch mesh. Change dressing as needed or at least every 4 days. It was changed today . Next change due 01/16/18. - Follow Up Care Current Providers and Referrals: Patient,NotPresent [Primary Care Provider] - As per Instructions
--- NOTE | 2018-01-12 14:04 | GDS ---
[f rep st] DISCHARGE SUMMARY DISCHARGE DIAGNOSES: 1. Confusion. 2. Acute on chronic encephalopathy. 3. Diabetes mellitus. 4. Coronary artery disease. 5. Agitation. 6. Dementia. 7. Left upper extremity abrasion. 8. Hypertension. STUDIES AND PROCEDURES DONE: Chest x-ray. PHYSICAL EXAM: GENERAL: The patient is alert. VITAL SIGNS: Afebrile, 36.4, pulse is 71, respirato ry rate 20, blood pressure is 91/54, he is saturating 95% on room air. I have seen and evaluated the patient on the day of discharge. HOSPITAL COURSE: The patient is an 87-year-old male who presented to the emergency room with complai nts of agitation. He was evaluated and diagnosed with. 1. Acute on chronic encephalopathy. This is in setting of severe dementia. The patient is at his b aseline mentation, which is poor. 2. Agitation and dementia. The patient was started on Seroquel during this hospitalization. He has responded well. He will continue this in the outpatient setting. 3. Diabetes. He is continuing his metformin. 4. Coronary artery disease. This is stable. 5. Left upper extremity abrasion. Wound care has been done. 6. Hypertension. The patient is on his home medication regimen of antihypertensives. He does becom e more hypertensive when agitated. DISPOSITION: It is recommended that the patient have a secure unit. However, the patient's and family would like to take him home. He has been arranged with a night sitter as well as home health care. I have provided him a prescription for Seroquel. The patient's family is understanding that this medication will not likely resolve all of his issues. He will follow up in the outpatient [facility] with his primary care physician. Again, I have expressed to the family that it is recommended eileen t he be transitioned to a secure [place] [facility] facility. However, they understand the risks and ar e wishing to take him home. There are no pending studies. DISCHARGE MEDICATIONS: Please refer to EMR form. I have provided a prescription for Seroquel for th e patient prior to disposition. I have spent greater than 35 minutes in the care, coordination, and management of the patient's disch arge. /[id number]/MODL
== END 2018-01-12 14:25 | disposition home health service (06) | DRG 71 ==
LOC: EDUNIT# → INTOOBSV 01-09 00:17 → F3E 01-09 01:40 → OBSVTOIN 01-10 14:40
PROVIDERS: ADMIT Student in an Organized Health Care Education/Training Program; ATTEND Student in an Organized Health Care Education/Training Program
DX: G93.49 Other encephalopathy (principal); F03.91 Unspecified dementia, unspecified severity, with behavioral disturbance; R45.1 Restlessness and agitation; S40.812A Abrasion of left upper arm, initial encounter; W19.XXXA Unspecified fall, initial encounter; E11.9 Type 2 diabetes mellitus without complications; I25.10 Atherosclerotic heart disease of native coronary artery without angina pectoris; I10 Essential (primary) hypertension; Z79.84 Long term (current) use of oral hypoglycemic drugs; Z95.5 Presence of coronary angioplasty implant and graft; Z86.73 Personal history of transient ischemic attack (TIA), and cerebral infarction without residual deficits
CPT/HCPCS: 97116-GP; 97161-GP; 97166-GO; G0378; G8978-GP-CK; G8979-GP-CI; G8987-GO-CK; G8988-GO-CJ; J1650

== ENCOUNTER 2018-03-03 03:10 | Emergency (ER) | payer OTHER ==
--- NOTE | 2018-03-03 03:18 | EDPHY ---
H & P Time Seen by Provider: 03/03/18 03:10 HPI/ROS: Chief Complaint: Fall, knee pain HPI: 87-year-old male resident of the memory care unit at [facility] had a mechanical fall this morning, striking his left knee. He has some recollection of the injury. States he did not his head. No loss of consciousness. The fall was not witnessed. He is complaining of left knee pain. He denies any recent illness. No fevers or chills. No chest pain or shortness of breath. No neck pain. No numbness or weakness. My ROS Social History: No smoking Family History: non-contributory Physical Exam: Gen: Awake, Alert, No Distress HEENT: Nose: no rhinorrhea Eyes: PERRLA, EOMI Mouth: Moist mucosa Neck: Supple, no JVD Chest: nontender, lungs clear to auscultation Heart: S1, S2 normal, no murmur Abd: Soft, non-tender, no guarding Back: no CVA tenderness, no midline tenderness Ext: no edema, left knee is tenderness along the lateral aspect of the proximal fibula. He is able to flex past 90. No anterior drawer sign. No pain with loading of the medial or lateral collateral ligaments. No patellar tenderness. Full flexion extension strength. No hip pain, no ankle pain. He does have bandages bilateral forearms. Right forearm has no underlying lesions. Left forearm has a dressing which is dated what appears to be 10 days ago. Underneath there is a dressing with an area purulent discharge. There is some granulation tissue. There is no edema or erythema suggestive of a cellulitis but is consistent with a wound infection. Skin: no rash Neuro: CN II-XII intact, Sensation grossly intact, Strength 5/5 in bilateral upper and lower extremities - Medical/Surgical History Hx Asthma: No Hx Chronic Respiratory Disease: No Hx Diabetes: Yes Hx Cardiac Disease: Yes Hx Renal Disease: No Hx Cirrhosis: No Hx Alcoholism: No Hx HIV/AIDS: No Hx Splenectomy or Spleen Trauma: No Other PMH: Hypertension, diabetes, coronary artery disease, asymptomatic right carotid artery stenosis, peripheral neuropathy, chronic bilateral lower extremity weakness, deconditioning, unsteady gait, intermittent peripheral vertigo - Social History Smoking Status: Never smoked Constitutional: Initial Vital Signs Temperature (C) 36.5 C 03/03/18 03:10 Heart Rate 125 H 03/03/18 03:10 Respiratory Rate 16 03/03/18 03:10 Blood Pressure 178/109 H 03/03/18 03:10 O2 Sat (%) 94 03/03/18 03:10 O2 Delivery Mode Room Air Allergies/Adverse Reactions: Penicillins Allergy (Unknown, Verified 03/03/18 03:24) Unknown Home Medications: Medication Instructions Recorded Aspirin EC [Aspirin EC 81 mg (*)] 81 mg PO DAILY 10/26/15 Atorvastatin Calcium [Lipitor 40 40 mg PO DAILY 03/01/17 mg (*)] Cyanocobalamin [Vitamin B12 (*)] 1,000 mcg PO DAILY 11/17/17 Lisinopril [Zestril 20 mg (*)] 20 mg PO DAILY 01/12/18 QUEtiapine FUMARATE [Seroquel 25 12.5 mg PO HS #30 tab 01/12/18 mg (*)] metFORMIN HCL [Metformin HCl] 1,000 mg PO DAILY@17 01/12/18 Metoprolol Tartrate [Lopressor 25 6.25 mg PO BID #60 tab 01/17/18 mg (*)] Medical Decision Making ED Course/Re-evaluation: 87-year-old male status post fall with left knee pain. He presented quite tachycardic for an un clear reason. ECG showed a sinus tachycardia. This resolved on its own. On reassessment is heart rate is 77. Laboratory evaluation and x-ray are unremarkable. Patient is otherwise at his baseline. Patient's heart rate remains normal. He is afebrile. X-rays negative for acute fracture. He is ambulating with assistance. He normally uses a walker. We have discussed with the nursing facility. They will able to take him back. They have assistance with walking will be with 10 to his left forearm wound. He will also follow up with primary care physician. - Data Points Laboratory Results: Laboratory Results 03/03/18 03:35 03/03/18 03:35 03/03/18 03/03/18 03/03/18 04:54 03:40 03:35 WBC RBC Hgb Hct MCV MCH MCHC RDW Plt Count MPV Neut % (Auto) Lymph % (Auto) [place] % (Auto) Eos % (Auto) Baso % (Auto) Nucleat RBC Rel Count Absolute Neuts (auto) Absolute Lymphs (auto) Absolute Monos (auto) Absolute Eos (auto) Absolute Basos (auto) Absolute Nucleated RBC Immature Gran % Immature Gran # Sodium 140 mEq/L mEq/L (135-145) Potassium 4.3 mEq/L mEq/L (3.3-5.0) Chloride 102 mEq/L mEq/L (97-110) Carbon Dioxide 27 mEq/l mEq/l (22-31) Anion Gap 11 mEq/L mEq/L (8-16) BUN 22 mg/dL mg/dL (7-23) Creatinine 0.8 mg/dL mg/dL (0.7-1.3) Estimated GFR > 60 Glucose 174 mg/dL H mg/dL (70-100) Calcium 9.3 mg/dL mg/dL (8.5-10.4) POC Troponin I 0.00 ng/mL ng/mL (0.00-0.08) Urine Color YELLOW Urine Appearance CLEAR Urine pH 5.0 (5.0-7.5) Ur Specific [place] 1.015 (1.002-1.030) Urine Protein NEGATIVE (NEGATIVE) Urine Ketones TRACE H (NEGATIVE) Urine Blood NEGATIVE (NEGATIVE) Urine Nitrate NEGATIVE (NEGATIVE) Urine Bilirubin NEGATIVE (NEGATIVE) Urine Urobilinogen NEGATIVE EU EU (0.2-1.0) Ur Leukocyte Esterase NEGATIVE (NEGATIVE) Urine Glucose NEGATIVE (NEGATIVE) 03/03/18 03:35 WBC 10.97 10^3/uL H 10^3/uL (3.80-9.50) RBC 3.80 10^6/uL L 10^6/uL (4.40-6.38) Hgb 11.7 g/dL L g/dL (13.7-17.5) Hct 35.5 % L % (40.0-51.0) MCV 93.4 fL fL (81.5-99.8) MCH 30.8 pg pg (27.9-34.1) MCHC 33.0 g/dL g/dL (32.4-36.7) RDW 13.6 % % (11.5-15.2) Plt Count 268 10^3/uL 10^3/uL (150-400) MPV 9.7 fL fL (8.7-11.7) Neut % (Auto) 82.1 % H % (39.3-74.2) Lymph % (Auto) 9.0 % L % (15.0-45.0) [place] % (Auto) 8.1 % % (4.5-13.0) Eos % (Auto) 0.2 % L % (0.6-7.6) Baso % (Auto) 0.3 % % (0.3-1.7) Nucleat RBC Rel Count 0.0 % % (0.0-0.2) Absolute Neuts (auto) 9.01 10^3/uL H 10^3/uL (1.70-6.50) Absolute Lymphs (auto) 0.99 10^3/uL L 10^3/uL (1.00-3.00) Absolute Monos (auto) 0.89 10^3/uL H 10^3/uL (0.30-0.80) Absolute Eos (auto) 0.02 10^3/uL L 10^3/uL (0.03-0.40) Absolute Basos (auto) 0.03 10^3/uL 10^3/uL (0.02-0.10) Absolute Nucleated RBC 0.00 10^3/uL 10^3/uL (0-0.01) Immature Gran % 0.3 % % (0.0-1.1) Immature Gran # 0.03 10^3/uL 10^3/uL (0.00-0.10) Sodium Potassium Chloride Carbon Dioxide Anion Gap BUN Creatinine Estimated GFR Glucose Calcium POC Troponin I Urine Color Urine Appearance Urine pH Ur Specific [place] Urine Protein Urine Ketones Urine Blood Urine Nitrate Urine Bilirubin Urine Urobilinogen Ur Leukocyte Esterase Urine Glucose Point of Care Test Results: Chemistry 03/03/18 03:40 POC Troponin I 0.00 ng/mL ng/mL (0.00-0.08) Departure - Departure Disposition: Home, Routine, Self-Care Clinical Impression: Wound infection, Fall, Knee pain Condition: Fair Instructions: Wound Infection (ED), Knee Pain (ED), Fall Prevention (ED) Additional Instructions: Apply wet-to-dry bandages to be changed daily to his left forearm. Follow up with primary care physician in 2 to 3 days for wound recheck. Return to the emergency department for increasing falls, confusion, fevers, lethargy, or any other concerns. Referrals: Patient,NotPresent [Primary Care Provider] - As per Instructions
[2018-03-03 03:46] LABS: PLATELET COUNT 268 10^3/uL (150-400)
--- NOTE | 2018-03-03 05:06 | CPEKG ---
Test Reason : OPEN Blood Pressure : / mmHG Vent. Rate : 131 BPM Atrial Rate : 126 BPM P-R Int : 100 ms QRS Dur : 095 ms QT Int : 338 ms P-R-T Axes : 072 055 026 degrees QTc Int : 499 ms Sinus tachycardia Ventricular premature complex ST depression, probably rate related Borderline prolonged QT interval Confirmed by Sixto Santamaria ([id number]) on 03/03/2018 5:05:21 AM Referred By: Confirmed By:Sixto Santamaria
[2018-03-03 05:33] VITALS: BP 176/98
== END 2018-03-03 07:10 | disposition home or self-care (01) ==
LOC: EDBD → EDUNIT#
DX: M25.562 Pain in left knee (principal); L08.9 Local infection of the skin and subcutaneous tissue, unspecified; I25.10 Atherosclerotic heart disease of native coronary artery without angina pectoris; I10 Essential (primary) hypertension; E11.9 Type 2 diabetes mellitus without complications; Z79.4 Long term (current) use of insulin; R26.81 Unsteadiness on feet; W01.198A Fall on same level from slipping, tripping and stumbling with subsequent striking against other object, initial encounter; Y92.129 Unspecified place in nursing home as the place of occurrence of the external cause
CPT/HCPCS: 84484-PO

== ENCOUNTER 2018-03-03 20:03 | Emergency (ER) | payer OTHER ==
--- NOTE | 2018-03-03 20:10 | EDPHY ---
HPI/HX/ROS/PE/MDM Narrative: CHIEF COMPLAINT: Fall, scalp laceration. HPI: The patient is an 87 y/o male arriving via EMS from his memory care unit for a second fall in the last 24 hours. He was seen here early this morning for a fall and knee pain. He fell again this evening after stumbling and sustained a laceration to the back of his head. He can remember the entire fall and denies loss of consciousness or other new injuries. No spinal pain, weakness, paresthesias. No anticoagulant use. REVIEW OF SYSTEMS: A comprehensive 10 system review of systems is otherwise negative aside from elements mentioned in the history of present illness. PMH: Hypertension, CAD, diabetes SOCIAL HISTORY: Lives at [facility]. Nonsmoker. PHYSICAL EXAM: General:Patient is alert, in no acute distress. Head: 2cm laceration to right occiput. ENT:Eyes are normal to inspection. ENT inspection normal. Neck: Normal inspection. Full range of motion. Respiratory:No respiratory distress. Breath sounds normal bilaterally. Cardiovascular: Regular rate and rhythm. Strong peripheral pulses. Normal cap refill. Abdomen:The abdomen is nontender to palpation. There are no peritoneal signs. Back: Normal to inspection. No tenderness to palpation. Skin: Normal color. No rash. Warm and dry. Extremities: Abrasion left forearm. Full range of motion. Neuro: Oriented x3. Normal motor function. Normal sensory function. ED Course: This is an 87 y/o male with multiple comorbidities who returns for the second time today after another fall at his assisted care facility, this time sustaining a laceration to his occiput. He also has an abrasion to his left arm. He is neurovascularly intact and denies specific complaints. Plan for head CT to rule out hemorrhage and wound care. Head CT: negative for acute findings. Procedure: Laceration repair. Verbal consent was obtained from the patient. The 2cm laceration on the occiput was cleaned with standard ED protocol. There were no deep structures involved. The wound was repaired with Dermabond. The wound repair was simple. The procedure was performed by myself, Dr. Marie. RN has contacted facility and staff there believes patient will be safe returning to their care at the [facility] tonight. Standard care and follow up instructions discussed. - Data Points Imaging: Discussed imaging studies w/ train caller Radiologist, I viewed and interpreted images myself General Time Seen by Provider: 03/03/18 20:05 Initial Vital Signs: Initial Vital Signs Temperature (C) 36.7 C 03/03/18 20:07 Heart Rate 75 03/03/18 20:07 Respiratory Rate 18 03/03/18 20:07 Blood Pressure 174/85 H 03/03/18 20:07 O2 Sat (%) 96 03/03/18 20:07 O2 Delivery Mode Room Air Allergies/Adverse Reactions: Penicillins Allergy (Unknown, Verified 03/03/18 20:07) Unknown Home Medications: Medication Instructions Recorded Aspirin EC [Aspirin EC 81 mg (*)] 81 mg PO DAILY 10/26/15 Atorvastatin Calcium [Lipitor 40 40 mg PO DAILY 03/01/17 mg (*)] Cyanocobalamin [Vitamin B12 (*)] 1,000 mcg PO DAILY 11/17/17 Lisinopril [Zestril 20 mg (*)] 20 mg PO DAILY 01/12/18 QUEtiapine FUMARATE [Seroquel 25 12.5 mg PO HS #30 tab 01/12/18 mg (*)] metFORMIN HCL [Metformin HCl] 1,000 mg PO DAILY@17 01/12/18 Metoprolol Tartrate [Lopressor 25 6.25 mg PO BID #60 tab 01/17/18 mg (*)] Departure - Departure Disposition: Home, Routine, Self-Care Clinical Impression: Occipital scalp laceration Qualifiers: Encounter type: initial encounter Qualified Code(s): S01.01XA - Laceration without foreign body of scalp, initial encounter Condition: Good Instructions: Laceration (ED) Additional Instructions: 1. Keep laceration dry. Do not scrub glue. It will fall off naturally over the next week. 2. Follow up with your primary care provider as needed. 3. Return for worsening of condition. Referrals: Radames Graves DO [Doctor of Osteopathy] - As per Instructions Report Scribed for: Salvatore Marie Report Scribed by: Vira Arizmendi Date of Report: 03/03/18 Time of Report: 20:57 Physician Review and Approval Statement: Portions of this note were transcribed by an ED scribe. I personally performed the history, physical exam, and medical decision making; and confirm the accuracy of the information in the transcribed note.
[2018-03-03] MEDS ORDERED: SKIN ADHESIVE (DERMABOND) 1 EACH TP ONE (20:42)
[2018-03-03 22:35] VITALS: BP 184/85
== END 2018-03-03 22:35 | disposition home or self-care (01) ==
LOC: EDUNIT#
PROC: 0HQ0XZZ Repair Scalp Skin, External Approach (ICD-10-PCS; principal; 2018-03-03)
DX: S01.01XA Laceration without foreign body of scalp, initial encounter (principal); I10 Essential (primary) hypertension; I25.10 Atherosclerotic heart disease of native coronary artery without angina pectoris; E11.9 Type 2 diabetes mellitus without complications; W01.198A Fall on same level from slipping, tripping and stumbling with subsequent striking against other object, initial encounter; Z79.4 Long term (current) use of insulin; Y92.129 Unspecified place in nursing home as the place of occurrence of the external cause; Z91.81 History of falling